=== PATIENT | female | born 1980 | race Caucasian/White ===

== ENCOUNTER 2017-04-18 09:04 | Emergency (ER) | payer MEDICARE, MEDICAID ==
[2017-04-18 09:30] VITALS: BP 208/106
--- NOTE | 2017-04-18 10:09 | EDM.PDOC ---
[id number] Complaint: DIARRHEA; NAUSEA Time Seen by Provider: 04/18/17 09:50 Source of Information: Reports: Patient History Limitations: Reports: No Limitations - History of Present Illness INITIAL COMMENTS - FREE TEXT/NARRATIVE: 36-year-old female who has had diarrhea off and on for the last several days and nausea, intermittent epigastric discomfort is in today because she feels "dehydrated". She is actually hypertensive, moderately tachycardic but in reviewing her previous vitals they are fairly consistent with long-term readings. She has no fever, she has had no emesis and no blood in her diarrhea. She was recently on an antibiotic for an "ear infection". Severity: Mild Associated Symptoms: Reports: Nausea/Vomiting. Denies: Chest Pain, Fever/Chills , Shortness of Breath, Weakness Epigastric Pain Score (Numeric/FACES): 10 - Related Data Allergies Allergy/AdvReac Type Severity Reaction Status Date / Time amoxicillin Allergy Hives Verified 04/18/17 11:09 Penicillins Allergy Hives Verified 04/18/17 11:09 Home Meds: Home Meds Norethindrone-Ethinyl Estrad [Dasetta 1-35-28 Tablet] 1 tab PO DAILY 02/04/15 [ History] ClonazePAM [KlonoPIN] 1 tab PO BEDTIME 11/06/16 [History] Gabapentin [Neurontin] 300 mg PO BEDTIME 11/06/16 [History] Lurasidone HCl [Latuda] 40 mg PO DAILY 11/06/16 [History] Omeprazole 20 mg PO DAILY 11/06/16 [History] Polyethylene Glycol 3350 1,000 gm MC BID 11/06/16 [History] QUEtiapine [SEROquel] 100 mg PO BEDTIME 11/06/16 [History] Sertraline [Zoloft] 100 mg PO BEDTIME 11/06/16 [History] Zolpidem [Ambien] 10 mg PO BEDTIME 11/06/16 [History] buPROPion [Wellbutrin XL] 150 mg PO DAILY 11/06/16 [History] traZODone 100 mg PO BEDTIME 11/06/16 [History] Past Medical History HEENT History: Reports: Impaired Vision Gastrointestinal History: Reports: GERD Psychiatric History: Reports: Depression Endocrine/Metabolic History: Reports: Obesity/BMI 30+ - Infectious Disease History Infectious Disease History: Reports: Chicken Pox - Past Surgical History GI Surgical History: Reports: Cholecystectomy Social & Family History - Tobacco Use Smoking Status *Q: Unknown Ever Smoked Years of Tobacco use: 7 Second Hand Smoke Exposure: No - Caffeine Use Caffeine Use: Reports: Soda, Tea - Alcohol Use Days Per Week of Alcohol Use: 0 - Recreational Drug Use Recreational Drug Use: No ED ROS GENERAL - Review of Systems Review Of Systems: See Below Constitutional: Reports: Malaise. Denies: Fever Respiratory: Denies: Shortness of Breath Cardiovascular: Denies: Chest Pain GI/Abdominal: Reports: Abdominal Pain, Diarrhea, Nausea. Denies: Vomiting : Reports: No Symptoms Skin: Reports: No Symptoms Neurological: Reports: No Symptoms ED EXAM, GI/ABD - Physical Exam Exam: See Below Exam Limited By: No Limitations General Appearance: Alert, No Apparent Distress Throat/Mouth: Normal Inspection Respiratory/Chest: No Respiratory Distress, Lungs Clear Cardiovascular: Regular Rate, Rhythm, Tachycardia GI/Abdominal: Soft, Tenderness (Reaction of some tenderness to palpation across the entire abdomen, no focal rebound or guarding) Course - Vital Signs Last Recorded V/S: Last Vital Signs Temp 97.5 F 04/18/17 09:50 Pulse 127 H 04/18/17 09:50 Resp 18 04/18/17 09:50 BP 208/106 H 04/18/17 09:50 Pulse Ox 95 04/18/17 09:50 - Orders/Labs/Meds Labs: Laboratory Tests 04/18/17 04/18/17 Range/Units 09:58 09:58 WBC 8.0 (4.5-11.0) K/uL RBC 5.59 H (3.30-5.50) M/uL Hgb 15.9 H D (12.0-15.0) g/dL Hct 48.4 H (36.0-48.0) % MCV 87 (80-98) fL MCH 28 (27-31) pg MCHC 33 (32-36) % Plt Count 366 (150-400) K/uL Neut % (Auto) 65 (36-66) % Lymph % (Auto) 23 L (24-44) % [place] % (Auto) 12 H (2-6) % Eos % (Auto) 0 L (2-4) % Baso % (Auto) 1 (0-1) % Sodium 140 (140-148) mmol/L Potassium 3.6 (3.6-5.2) mmol/L Chloride 103 (100-108) mmol/L Carbon Dioxide 29 (21-32) mmol/L Anion Gap 8.0 (5.0-14.0) mmol/L BUN 9 (7-18) mg/dL Creatinine 1.0 (0.6-1.0) mg/dL Est Cr Clr Drug Dosing 68.45 mL/min Estimated GFR (MDRD) > 60 (>60) Glucose 99 (74-106) mg/dL Calcium 9.6 (8.5-10.1) mg/dL - Re-Assessments/Exams Free Text/Narrative Re-Assessment/Exam: 04/18/17 10:09 Patient likely has just mild gastroenteritis but with the recent antibiotic a C. difficile will be checked. We'll also draw a CBC and BMP. 04/18/17 11:04 Patient drink water in the emergency room without a problem. We waited 2 hours for stool sample and she had no diarrhea, no nausea or vomiting. She'll be discharged with some doses of Zofran and can return if symptoms persist. Departure - Departure Time of Disposition: 11:19 Disposition: Home, Self-Care 01 Condition: Good Clinical Impression: Gastroenteritis - Discharge Information Instructions: Diarrhea, Adult, [id number] Referrals: Abdifatah Aguirre MD [Primary Care Provider] - Forms: ED Department Discharge Care Plan Goals: Increase diet and activity as tolerated. Consider rechecking in 3-4 days if not improving, or return anytime sooner if worsening. Use Zofran under your tongue every 6 hours for nausea if needed.
== END 2017-04-18 11:15 | disposition home or self-care (01) ==
LOC: JP.ED 09:04
DX: K52.9 Noninfective gastroenteritis and colitis, unspecified (principal); K21.9 Gastro-esophageal reflux disease without esophagitis; E66.9 Obesity, unspecified; Z90.49 Acquired absence of other specified parts of digestive tract; Z79.899 Other long term (current) drug therapy; Z88.0 Allergy status to penicillin; Z88.1 Allergy status to other antibiotic agents
CPT/HCPCS: 36415; 80048; 85025; 99282; 99284

== ENCOUNTER 2017-04-18 13:55 | Emergency (ER) | payer MEDICARE, MEDICAID ==
[2017-04-18 14:24] VITALS: BP 155/99
[2017-04-18] MEDS ORDERED: LORazepam 1 MG Tab PO ONE (15:05)
--- NOTE | 2017-04-18 15:38 | EDM.PDOC ---
ED HPI GENERAL MEDICAL PROBLEM - General Chief Complaint: Behavioral/Psych Stated Complaint: DEPRESSED Time Seen by Provider: 04/18/17 14:01 Source of Information: Reports: Patient History Limitations: Reports: No Limitations - History of Present Illness INITIAL COMMENTS - FREE TEXT/NARRATIVE: "I'm having a mental breakdown!", This is a 36 year old female present to ER by herself, She reports hasn't taken her psychiatric medications for the past 4 months because she just doesn't care anymore. She reports hearing voices to "kill herself" and is "seeing people". She does not feel safe in her home. 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 She lives in [place], [place]., has been alone for the past month, due to Boyfriend being in a [facility] [place] [place] for his mental breakdown. No children. denies drugs, ETOH or smoking. Has not has Inpatient Psych Treatment in the past, has never harmed herself. She lives alone in a apartment, does not work, spends her day watching TV. Significant Other: currently Inpatient Psych. Therapist; Dr. Altaf Lucas, [facility] Primary Care Provider: Dr. Aguirre Onset: Gradual Duration: Getting Worse (has been depressed for a long time, worse today.) Location: Reports: Generalized Improves with: Reports: None Worsens with: Reports: None Associated Symptoms: Reports: No Other Symptoms - Related Data Allergies Allergy/AdvReac Type Severity Reaction Status Date / Time amoxicillin Allergy Hives Verified 04/18/17 11:09 Penicillins Allergy Hives Verified 04/18/17 11:09 Home Meds: Home Meds Norethindrone-Ethinyl Estrad [Dasetta 1-35-28 Tablet] 1 tab PO DAILY 02/04/15 [ History] ClonazePAM [KlonoPIN] 1 tab PO BEDTIME 11/06/16 [History] Gabapentin [Neurontin] 300 mg PO BEDTIME 11/06/16 [History] Lurasidone HCl [Latuda] 40 mg PO DAILY 11/06/16 [History] Omeprazole 20 mg PO DAILY 11/06/16 [History] Polyethylene Glycol 3350 1,000 gm MC BID 11/06/16 [History] QUEtiapine [SEROquel] 100 mg PO BEDTIME 11/06/16 [History] Sertraline [Zoloft] 100 mg PO BEDTIME 11/06/16 [History] Zolpidem [Ambien] 10 mg PO BEDTIME 11/06/16 [History] buPROPion [Wellbutrin XL] 150 mg PO DAILY 11/06/16 [History] traZODone 100 mg PO BEDTIME 11/06/16 [History] Past Medical History HEENT History: Reports: Impaired Vision Gastrointestinal History: Reports: GERD Psychiatric History: Reports: Depression Endocrine/Metabolic History: Reports: Obesity/BMI 30+ - Infectious Disease History Infectious Disease History: Reports: Chicken Pox - Past Surgical History GI Surgical History: Reports: Cholecystectomy Social & Family History - Tobacco Use Smoking Status *Q: Never Smoker Years of Tobacco use: 7 Second Hand Smoke Exposure: No - Caffeine Use Caffeine Use: Reports: Soda, Tea - Alcohol Use Days Per Week of Alcohol Use: 0 - Recreational Drug Use Recreational Drug Use: No - Living Situation & Occupation Living situation: Reports: with Significant Other Occupation: Disabled (lives with Boyfriend in [place], [place].) ED ROS GENERAL - Review of Systems Review Of Systems: See Below Constitutional: Reports: Other (depressed, lonely) HEENT: Reports: No Symptoms Respiratory: Reports: No Symptoms Cardiovascular: Reports: No Symptoms Endocrine: Reports: No Symptoms GI/Abdominal: Reports: Abdominal Pain : Reports: No Symptoms Musculoskeletal: Reports: No Symptoms Skin: Reports: No Symptoms Neurological: Reports: No Symptoms Psychiatric: Reports: Agitation, Anxiety, Depression, Hallucinations Hematologic/Lymphatic: Reports: No Symptoms Immunologic: Reports: No Symptoms ED EXAM, BEHAVIORAL HEALTH - Physical Exam Exam: See Below Exam Limited By: No Limitations General Appearance: Alert, Mild Distress (hollaring out. ), Obese, Other ( smells and looks like she has not showered in a long time. strong body odor, greasy hair.) Eye Exam: Bilateral Eye: Normal Inspection Ears: Normal External Exam, Normal Canal, Hearing Grossly Normal, Normal TMs Nose: Normal Inspection, Normal Mucosa, No Blood Throat/Mouth: Normal Inspection, Normal Lips, Normal Teeth, Normal Gums Head: Atraumatic, Normocephalic Neck: Normal Inspection, Supple, Non-Tender Respiratory/Chest: No Respiratory Distress, Lungs Clear, Normal Breath Sounds, No Accessory Muscle Use, Chest Non-Tender Cardiovascular: Normal Peripheral Pulses, Regular Rate, Rhythm, No Edema, No Murmur GI/Abdominal: Normal Bowel Sounds, Soft, Non-Tender (Female) Exam: Deferred Rectal (Female) Exam: Deferred Back Exam: Normal Inspection, Full Range of Motion, NT Extremities: Normal Inspection, Normal Range of Motion, Non-Tender, Normal Capillary Refill, No Pedal Edema Neurological: Alert, Normal Gait, Normal Reflexes, No Motor/Sensory Deficits, Oriented x 3 Psychiatric: Alert, Depressed Mood, Restless, Agitated Skin Exam: Warm, Dry, Intact, Normal color, No rash COURSE, BEHAVIORAL HEALTH COMP - Course Vital Signs: Last Vital Signs Temp 36.8 C 04/18/17 14:20 Pulse 130 H 04/18/17 14:20 Resp 14 04/18/17 14:20 BP 155/99 H 04/18/17 14:20 Pulse Ox 99 04/18/17 14:20 Orders, Labs, Meds: Active Orders 24 hr Category Date Time Status Regular Diet [DIET] Diet 04/18/17 Dinner Active Laboratory Tests 04/18/17 04/18/17 04/18/17 Range/Units 10:00 10:00 14:57 Urine HCG, Qual Negative Urine Opiates Screen (NEGATIVE) Ur Oxycodone Screen (NEGATIVE) Urine Methadone Screen (NEGATIVE) Ur Propoxyphene Screen (NEGATIVE) Acetaminophen 0.0 L (10.0-30.0) ug/mL Ur Barbiturates Screen (NEGATIVE) Ur Tricyclics Screen (NEGATIVE) Ur Phencyclidine Scrn (NEGATIVE) Ur Amphetamine Screen (NEGATIVE) U Methamphetamines Scrn (NEGATIVE) Urine MDMA Screen (NEGATIVE) U Benzodiazepines Scrn (NEGATIVE) U Cocaine Metab Screen (NEGATIVE) U Marijuana (THC) Screen (NEGATIVE) Ethyl Alcohol < 3 mg/dL 04/18/17 Range/Units 14:57 Urine HCG, Qual Urine Opiates Screen Negative (NEGATIVE) Ur Oxycodone Screen Negative (NEGATIVE) Urine Methadone Screen Negative (NEGATIVE) Ur Propoxyphene Screen Negative (NEGATIVE) Acetaminophen (10.0-30.0) ug/mL Ur Barbiturates Screen Negative (NEGATIVE) Ur Tricyclics Screen Negative (NEGATIVE) Ur Phencyclidine Scrn Negative (NEGATIVE) Ur Amphetamine Screen Negative (NEGATIVE) U Methamphetamines Scrn Negative (NEGATIVE) Urine MDMA Screen Negative (NEGATIVE) U Benzodiazepines Scrn Negative (NEGATIVE) U Cocaine Metab Screen Negative (NEGATIVE) U Marijuana (THC) Screen Negative (NEGATIVE) Ethyl Alcohol mg/dL Medications Discontinued Medications Generic Name Dose Route Start Last Admin Trade Name Guido PRN Reason Stop Dose Admin Acetaminophen 1,000 mg 04/18/17 17:35 04/18/17 17:56 Tylenol Extra Strength PO 04/18/17 17:36 1,000 mg ONETIME ONE Administration Lorazepam 1 mg 04/18/17 15:05 04/18/17 15:17 Ativan PO 04/18/17 15:06 1 mg ONETIME ONE Administration Re-Assessment/Re-Exam: order; call to Crisis Team, they will come to ER to evaluate Ms. Elliott. Crisis Team; recommendation to discharge to home with Mother. will plan to follow up with Primary Care Provider Departure - Departure Time of Disposition: 18:59 Disposition: Home, Self-Care 01 Condition: Good Clinical Impression: Depression - Discharge Information Forms: ED Department Discharge Care Plan Goals: depression, anxiety -start Xanax 0.5mg every 8 hours as needed for anxiety/stresss -start Ambien 5mg at bedtime as needed for sleep. Call Primary Care Provider for follow up on Friday Call Therapist for a appointment next week for follow up. Return to Clinic or ER if has any question or concerns. - Problem List & Annotations (1) Depression SNOMED Code(s): 21031540 Code(s): F32.9 - MAJOR DEPRESSIVE DISORDER, SINGLE EPISODE, UNSPECIFIED Status: Acute Priority: High Current Visit: Yes Qualifiers: Depression Type: reactive depression Qualified Code(s): F32.9 - Major depressive disorder, single episode, unspecified - Problem List Review Problem List Initiated/Reviewed/Updated: Yes - My Orders Last 24 Hours: My Active Orders 04/18/17 Dinner Regular Diet [DIET] - Assessment/Plan Last 24 Hours: My Active Orders 04/18/17 Dinner Regular Diet [DIET] Plan: depression, anxiety -start Xanax 0.5mg every 8 hours as needed for anxiety/stresss -start Ambien 5mg at bedtime as needed for sleep. Call Primary Care Provider for follow up on Friday Call Therapist for a appointment next week for follow up. Return to Clinic or ER if has any question or concerns.
[2017-04-18] MEDS ORDERED: Acetaminophen 500 MG Tab PO ONE (17:35)
== END 2017-04-18 19:16 | disposition home or self-care (01) ==
LOC: JP.ED 13:55
DX: F32.9 Major depressive disorder, single episode, unspecified (principal); K21.9 Gastro-esophageal reflux disease without esophagitis; E66.9 Obesity, unspecified; Z90.49 Acquired absence of other specified parts of digestive tract; Z79.899 Other long term (current) drug therapy; K52.9 Noninfective gastroenteritis and colitis, unspecified; Z88.0 Allergy status to penicillin; Z88.1 Allergy status to other antibiotic agents
CPT/HCPCS: 36415; 80048; 80305; 81025; 85025; 99282; 99283; 99284; A9270; G0480

== ENCOUNTER 2017-04-23 12:14 | Emergency (ER) | payer MEDICARE, MEDICAID ==
[2017-04-23] MEDS ORDERED: Levofloxacin/Dextrose 5%-Water 500 MG in Premix Bag 1 BAG IV ONE (14:23)
[2017-04-23] MEDS ORDERED: Sodium Chloride 0.9% 1,000 ML IV SCH ×2 (14:30→15:15)
--- NOTE | 2017-04-23 14:33 | EDM.PDOC ---
[id number] 4d DIZZINESS,WEAKNESS Time Seen by Provider: 04/23/17 14:25 Source of Information: Reports: Patient History Limitations: Reports: No Limitations - History of Present Illness INITIAL COMMENTS - FREE TEXT/NARRATIVE: pt is doing better mentally. She woke up this am very fatiqued and felt like her heart was pounding. she was feeling lite headed and she thought her speech was a littslurred. At this time her speech seemes good. Onset: Today Duration: Hour(s): Location: Reports: Other (lite headed. She has a low grade headache but not severe. ) Associated Symptoms: Reports: Malaise, Other (pt was liteheaded. ) - Related Data Allergies Allergy/AdvReac Type Severity Reaction Status Date / Time amoxicillin Allergy Hives Verified 04/24/17 10:37 Penicillins Allergy Hives Verified 04/24/17 10:37 Home Meds: Home Meds Norethindrone-Ethinyl Estrad [Dasetta 1-35-28 Tablet] 1 tab PO DAILY 02/04/15 [ History] ClonazePAM [KlonoPIN] 1 tab PO TID 11/06/16 [History] Gabapentin [Neurontin] 300 mg PO BEDTIME 11/06/16 [History] Lurasidone HCl [Latuda] 40 mg PO DAILY 11/06/16 [History] Omeprazole 20 mg PO DAILY 11/06/16 [History] Polyethylene Glycol 3350 1,000 gm MC BID 11/06/16 [History] QUEtiapine [SEROquel] 100 mg PO BEDTIME 11/06/16 [History] Sertraline [Zoloft] 100 mg PO BEDTIME 11/06/16 [History] Zolpidem [Ambien] 10 mg PO BEDTIME 11/06/16 [History] buPROPion [Wellbutrin XL] 150 mg PO DAILY 11/06/16 [History] traZODone 100 mg PO BEDTIME 11/06/16 [History] ALPRAZolam [Xanax] 0.25 mg PO Q8H PRN 04/23/17 [History] Ciprofloxacin HCl [Cipro] 500 mg PO BID 04/24/17 [History] Metoprolol Tartrate [Lopressor] 25 mg PO DAILY 04/24/17 [History] Past Medical History HEENT History: Reports: Impaired Vision Gastrointestinal History: Reports: GERD Psychiatric History: Reports: Depression Endocrine/Metabolic History: Reports: Obesity/BMI 30+ - Infectious Disease History Infectious Disease History: Reports: Chicken Pox - Past Surgical History GI Surgical History: Reports: Cholecystectomy Social & Family History - Tobacco Use Smoking Status *Q: Never Smoker Years of Tobacco use: 7 Second Hand Smoke Exposure: No - Caffeine Use Caffeine Use: Reports: None - Alcohol Use Days Per Week of Alcohol Use: 0 - Recreational Drug Use Recreational Drug Use: No - Living Situation & Occupation Living situation: Reports: with Significant Other Occupation: Disabled (lives with Boyfriend in [place], [place].) ED ROS GENERAL - Review of Systems Review Of Systems: See Below Constitutional: Reports: Malaise HEENT: Reports: No Symptoms Respiratory: Reports: No Symptoms Cardiovascular: Reports: No Symptoms Endocrine: Reports: Fatigue GI/Abdominal: Reports: No Symptoms : Reports: Dysuria, Frequency Musculoskeletal: Reports: No Symptoms Skin: Reports: No Symptoms ED EXAM, GENERAL - Physical Exam Exam: See Below Free Text/Narrative:: pt arrived stating that mentally she is doing better. She got up this am and she was liteheaded, she had dysuria and feeling fatiqued. Exam Limited By: No Limitations General Appearance: Alert, Mild Distress Ears: Normal TMs Nose: Normal Inspection Throat/Mouth: Normal Inspection Head: Atraumatic Neck: Normal Inspection Respiratory/Chest: No Respiratory Distress Cardiovascular: Regular Rate, Rhythm, Tachycardia GI/Abdominal: Soft, Other (mild tenderness in the epigastric area. ) (Female) Exam: Deferred Rectal (Female) Exam: Deferred Back Exam: Normal Inspection Extremities: Normal Inspection Neurological: Alert, Oriented, Normal Cognition Psychiatric: Anxious Course - Vital Signs Last Recorded V/S: Last Vital Signs Temp 36.3 C 04/23/17 12:41 Pulse 107 H 04/23/17 17:14 Resp 16 04/23/17 15:20 BP 169/89 H 04/23/17 17:14 Pulse Ox 98 04/23/17 15:20 - Orders/Labs/Meds Labs: Laboratory Tests 04/23/17 04/23/17 04/23/17 Range/Units 13:32 13:37 13:40 WBC 7.9 (4.5-11.0) K/uL RBC 4.67 (3.30-5.50) M/uL Hgb 13.5 D (12.0-15.0) g/dL Hct 42.3 (36.0-48.0) % MCV 91 (80-98) fL MCH 29 (27-31) pg MCHC 32 (32-36) % Plt Count 279 (150-400) K/uL Neut % (Auto) 61 (36-66) % Lymph % (Auto) 27 (24-44) % [place] % (Auto) 9 H (2-6) % Eos % (Auto) 2 (2-4) % Baso % (Auto) 1 (0-1) % Sodium (140-148) mmol/L Potassium (3.6-5.2) mmol/L Chloride (100-108) mmol/L Carbon Dioxide (21-32) mmol/L Anion Gap (5.0-14.0) mmol/L BUN (7-18) mg/dL Creatinine (0.6-1.0) mg/dL Est Cr Clr Drug Dosing mL/min Estimated GFR (MDRD) (>60) Glucose (74-106) mg/dL Calcium (8.5-10.1) mg/dL Total Bilirubin (0.2-1.0) mg/dL AST (15-37) U/L ALT (12-78) U/L Alkaline Phosphatase (46-116) U/L Total Protein (6.4-8.2) g/dL Albumin (3.4-5.0) g/dL Globulin (2.3-3.5) g/dL Albumin/Globulin Ratio (1.2-2.2) TSH, Ultra Sensitive 0.872 (0.358-3.740) uIU/mL Urine Color Yellow Urine Appearance Cloudy Urine pH 6.0 (4.5-8.0) Ur Specific [place] 1.015 (1.008-1.030) Urine Protein Negative (NEGATIVE) mg/dL Urine Glucose (UA) Normal (NEGATIVE) mg/dL Urine Ketones 15 H (NEGATIVE) mg/dL Urine Occult Blood Moderate (NEGATIVE) Urine Nitrite Negative (NEGATIVE) Urine Bilirubin Negative (NEGATIVE) Urine Urobilinogen Normal (NORMAL) mg/dL Ur Leukocyte Esterase Large (NEGATIVE) Urine RBC 5-10 H (0-5) Urine WBC 30-40 H (0-5) Ur Epithelial Cells Moderate Amorphous Sediment Few Urine Bacteria Many Urine Mucus Not seen 04/23/17 Range/Units 13:40 WBC (4.5-11.0) K/uL RBC (3.30-5.50) M/uL Hgb (12.0-15.0) g/dL Hct (36.0-48.0) % MCV (80-98) fL MCH (27-31) pg MCHC (32-36) % Plt Count (150-400) K/uL Neut % (Auto) (36-66) % Lymph % (Auto) (24-44) % [place] % (Auto) (2-6) % Eos % (Auto) (2-4) % Baso % (Auto) (0-1) % Sodium 145 (140-148) mmol/L Potassium 3.5 L (3.6-5.2) mmol/L Chloride 110 H (100-108) mmol/L Carbon Dioxide 30 (21-32) mmol/L Anion Gap 8.5 (5.0-14.0) mmol/L BUN 12 (7-18) mg/dL Creatinine 1.0 (0.6-1.0) mg/dL Est Cr Clr Drug Dosing 68.45 mL/min Estimated GFR (MDRD) > 60 (>60) Glucose 110 H (74-106) mg/dL Calcium 8.7 (8.5-10.1) mg/dL Total Bilirubin 0.4 D (0.2-1.0) mg/dL AST 36 D (15-37) U/L ALT 56 D (12-78) U/L Alkaline Phosphatase 71 (46-116) U/L Total Protein 6.5 (6.4-8.2) g/dL Albumin 3.0 L (3.4-5.0) g/dL Globulin 3.5 (2.3-3.5) g/dL Albumin/Globulin Ratio 0.9 L (1.2-2.2) TSH, Ultra Sensitive (0.358-3.740) uIU/mL Urine Color Urine Appearance Urine pH (4.5-8.0) Ur Specific [place] (1.008-1.030) Urine Protein (NEGATIVE) mg/dL Urine Glucose (UA) (NEGATIVE) mg/dL Urine Ketones (NEGATIVE) mg/dL Urine Occult Blood (NEGATIVE) Urine Nitrite (NEGATIVE) Urine Bilirubin (NEGATIVE) Urine Urobilinogen (NORMAL) mg/dL Ur Leukocyte Esterase (NEGATIVE) Urine RBC (0-5) Urine WBC (0-5) Ur Epithelial Cells Amorphous Sediment Urine Bacteria Urine Mucus Meds: Medications Discontinued Medications Generic Name Dose Route Start Last Admin Trade Name Freq PRN Reason Stop Dose Admin Alprazolam 0.25 mg 04/23/17 16:22 04/23/17 17:16 Xanax PO 04/23/17 16:23 0.25 mg ONETIME ONE Administration Sodium Chloride 1,000 mls @ 999 mls/hr 04/23/17 14:30 04/23/17 14:48 Normal Saline IV 999 mls/hr ASDIRECTED BERNARDO Administration Levofloxacin/Dextrose 500 mg/ 100 mls @ 100 mls/hr 04/23/17 14:23 04/23/17 14 :50 Premix IV 04/23/17 15:22 100 mls/hr ONETIME ONE Administration Sodium Chloride 1,000 mls @ 999 mls/hr 04/23/17 15:15 Normal Saline IV ASDIRECTED BERNARDO Metoprolol Tartrate 25 mg 04/23/17 16:25 04/23/17 17:14 Lopressor PO 04/23/17 16:26 25 mg ONETIME ONE Administration - Re-Assessments/Exams Free Text/Narrative Re-Assessment/Exam: 04/23/17 16:25 pt continued to have an elevated bp and she was given lopressor 25 mg and xanax .25. She will finish her fluids and will discharge on cipro and lopressor in addition to her regular meds. Departure - Departure Time of Disposition: 17:15 Disposition: Home, Self-Care 01 Condition: Fair Clinical Impression: UTI (urinary tract infection), Elevated BP without diagnosis of hypertension - Discharge Information Instructions: Urinary Tract Infection, Adult, Hypertension, [id number] Referrals: Abdifatah Aguirre MD [Primary Care Provider] - Forms: ED Department Discharge Care Plan Goals: appt with Dr Aguirre in 4-5 days to recheck bp, cipro 500mg bid for 1 week, lopressor 25 1 tab daily for elevated bp.
[2017-04-23] MEDS ORDERED: ALPRAZolam 0.25 MG Tab PO ONE (16:22)
[2017-04-23] MEDS ORDERED: Metoprolol Tartrate 25 MG Tab PO ONE (16:25)
[2017-04-23 17:17] VITALS: BP 169/89
== END 2017-04-23 17:20 | disposition home or self-care (01) ==
LOC: JP.ED 12:14
DX: N39.0 Urinary tract infection, site not specified (principal); R03.0 Elevated blood-pressure reading, without diagnosis of hypertension; K21.9 Gastro-esophageal reflux disease without esophagitis; F32.9 Major depressive disorder, single episode, unspecified; E66.9 Obesity, unspecified; Z90.49 Acquired absence of other specified parts of digestive tract; Z79.899 Other long term (current) drug therapy; Z88.0 Allergy status to penicillin; Z88.1 Allergy status to other antibiotic agents
CPT/HCPCS: 36415; 80053; 81001; 84443; 85025; 87086; 93005; 96361; 96365; 99284; A9270; J1956; J7040; 93010

== ENCOUNTER 2017-04-24 10:16 | Emergency (ER) | payer MEDICARE, MEDICAID ==
[2017-04-24 10:37] VITALS: BP 152/82
--- NOTE | 2017-04-24 11:15 | EDM.PDOC ---
ED HPI GENERAL MEDICAL PROBLEM - General Chief Complaint: General Stated Complaint: SLURRED SPEECH, STUMBLING Time Seen by Provider: 04/24/17 10:50 Source of Information: Reports: Patient, Family, Old Records, RN Notes Reviewed History Limitations: Reports: No Limitations - History of Present Illness INITIAL COMMENTS - FREE TEXT/NARRATIVE: 36-year-old female presents emergency department day complaint of slurred speech , this is her fourth visit emergency department in a week for riding complaints complaint yesterday was chest pain I did review EKG and old records no acute abnormality was noted. The complaint today states she awoke this morning slurred speech difficulty walking feels weak had one episode of weakness where she could not walk and had to gently go to the ground no injury at that time. On review of systems today she is positive for shortness of breath chest pain weakness on the right side slurred speech teeth itching - Related Data Allergies Allergy/AdvReac Type Severity Reaction Status Date / Time amoxicillin Allergy Hives Verified 04/24/17 10:37 Penicillins Allergy Hives Verified 04/24/17 10:37 Home Meds: Home Meds Norethindrone-Ethinyl Estrad [Dasetta 1-35-28 Tablet] 1 tab PO DAILY 02/04/15 [ History] ClonazePAM [KlonoPIN] 1 tab PO TID 11/06/16 [History] Gabapentin [Neurontin] 300 mg PO BEDTIME 11/06/16 [History] Lurasidone HCl [Latuda] 40 mg PO DAILY 11/06/16 [History] Omeprazole 20 mg PO DAILY 11/06/16 [History] Polyethylene Glycol 3350 1,000 gm MC BID 11/06/16 [History] QUEtiapine [SEROquel] 100 mg PO BEDTIME 11/06/16 [History] Sertraline [Zoloft] 100 mg PO BEDTIME 11/06/16 [History] Zolpidem [Ambien] 10 mg PO BEDTIME 11/06/16 [History] buPROPion [Wellbutrin XL] 150 mg PO DAILY 11/06/16 [History] traZODone 100 mg PO BEDTIME 11/06/16 [History] ALPRAZolam [Xanax] 0.25 mg PO Q8H PRN 04/23/17 [History] Ciprofloxacin HCl [Cipro] 500 mg PO BID 04/24/17 [History] Metoprolol Tartrate [Lopressor] 25 mg PO DAILY 04/24/17 [History] Past Medical History HEENT History: Reports: Impaired Vision Cardiovascular History: Reports: Hypertension Gastrointestinal History: Reports: GERD Psychiatric History: Reports: Depression, Other (See Below) (Schizoaffective disorder) Endocrine/Metabolic History: Reports: Obesity/BMI 30+ - Infectious Disease History Infectious Disease History: Reports: Chicken Pox - Past Surgical History GI Surgical History: Reports: Cholecystectomy Social & Family History - Tobacco Use Smoking Status *Q: Never Smoker Years of Tobacco use: 7 Second Hand Smoke Exposure: No - Caffeine Use Caffeine Use: Reports: Tea - Alcohol Use Days Per Week of Alcohol Use: 0 - Recreational Drug Use Recreational Drug Use: No - Living Situation & Occupation Living situation: Reports: with Significant Other Occupation: Disabled (lives with Boyfriend in [place], [place].) ED ROS GENERAL - Review of Systems Review Of Systems: Unable To Obtain (Positive for all review of systems difficult to obtain) ED EXAM, GENERAL - Physical Exam Exam: See Below Free Text/Narrative:: General: Obese female, not in any distress, alert and oriented x3 HEENT: head is atraumatic normocephalic, eyes pupils equal round reactive to light, sclera clear no conjunctivitis appreciated. Ears tympanic membranes clear and villanueva landmarks and light reflex are present bilaterally canals are clear. Nose no septal deviation, nares are clear, no blood present. Mouth mucosa is moist and pink no erythema or exudate noted in soft palate, tongue is midline uvula is midline, dentition is intact. Neck: Supple no thyromegaly no tracheal deviation. Nodes: Cervical nodes subclavicular nodes nontender no palpable lymphadenopathy noted. Lungs: clear to auscultation bilaterally with symmetrical respirations, no adventitious noise appreciated. CV: Regular rate and rhythm S1 and S2 appreciated no murmurs rubs or gallops noted. Abdomen: Soft, obese, nontender, no palpable masses or organomegaly appreciated , no distention no guarding bowel sounds are present, . Neuro: Cranial nerves II through XII grossly intact, power is 5 out 5 in upper and lower extremities, can do finger to nose without difficulty no dysdiadochokinesis no difficulty with rapid alternating movements can do heel-to -pritchard without difficulty Romberg is negative, has adequate gait can do heel to toe, no cerebellar dysfunction no focal neurologic deficit Skin: Warm and dry, intact Course - Vital Signs Last Recorded V/S: Last Vital Signs Temp 97.6 F 04/24/17 10:35 Pulse 87 04/24/17 10:35 Resp 18 04/24/17 10:35 BP 152/82 H 04/24/17 10:35 Pulse Ox 92 L 04/24/17 10:35 - Orders/Labs/Meds Labs: Laboratory Tests 04/24/17 04/24/17 04/24/17 Range/Units 11:15 11:15 11:15 WBC 6.6 (4.5-11.0) K/uL RBC 4.83 (3.30-5.50) M/uL Hgb 13.6 (12.0-15.0) g/dL Hct 43.3 (36.0-48.0) % MCV 90 (80-98) fL MCH 28 (27-31) pg MCHC 31 L (32-36) % Plt Count 309 (150-400) K/uL Neut % (Auto) 50 (36-66) % Lymph % (Auto) 35 (24-44) % Towns % (Auto) 11 H (2-6) % Eos % (Auto) 3 (2-4) % Baso % (Auto) 2 H (0-1) % Sodium 137 L (140-148) mmol/L Potassium 4.1 (3.6-5.2) mmol/L Chloride 101 (100-108) mmol/L Carbon Dioxide 29 (21-32) mmol/L Anion Gap 11.1 (5.0-14.0) mmol/L BUN 10 (7-18) mg/dL Creatinine 0.9 (0.6-1.0) mg/dL Est Cr Clr Drug Dosing 76.06 mL/min Estimated GFR (MDRD) > 60 (>60) Glucose 88 (74-106) mg/dL Calcium 8.9 (8.5-10.1) mg/dL Total Bilirubin 0.6 (0.2-1.0) mg/dL AST 42 H (15-37) U/L ALT 59 (12-78) U/L Alkaline Phosphatase 69 (46-116) U/L CK-MB (CK-2) 0.2 (0-3.6) mg/mL Troponin I < 0.017 (0.000-0.056) ng/mL C-Reactive Protein 1.52 H (0.0-0.3) mg/dL Total Protein 6.8 (6.4-8.2) g/dL Albumin 3.2 L (3.4-5.0) g/dL Globulin 3.6 H (2.3-3.5) g/dL Albumin/Globulin Ratio 0.9 L (1.2-2.2) Departure - Departure Time of Disposition: 12:13 Disposition: Home, Self-Care 01 Condition: Fair Clinical Impression: Polypharmacy - Discharge Information Forms: ED Department Discharge Additional Instructions: Please stop the Xanax, please keep your follow-up appointment with your primary care provider, call or return to the emergency department with worsening of symptoms - Assessment/Plan Plan: Assessment Acuity = acute Site and laterality = slurred speech complicated patient with schizoaffective disorder and polypharmacy Etiology = probably related to combination of Klonopin and Xanax Manifestations = none Location of injury = home Lab values = CBC, CMP within normal limits CT scan of the head was negative for any acute process Plan I did review lab and CT scan results with her and her family they're going to discontinue the Xanax today she is a follow-up appointment with her primary care provider next week Patient was in agreement with the plan all questions were answered, they were instructed to return to the emergency department or call for worsening symptoms. This note was dictated using [employer] voice recognition software please call with any questions.
--- NOTE | 2017-04-24 11:40 | CT ---
Head wo Cont INDICATION: Altered mental status and slurred speech. Dose: Total DLP 766. Comparison: 12/30/2016. FINDINGS: No acute intracranial hemorrhage, mass, or edema. Visualized portions of the paranasal sin uses and mastoid air cells are clear. Soft tissues are negative. IMPRESSION: Negative head CT.
== END 2017-04-24 12:30 | disposition home or self-care (01) ==
LOC: JP.ED 10:16
DX: R47.81 Slurred speech (principal); R53.1 Weakness; T88.7XXA Unspecified adverse effect of drug or medicament, initial encounter; I10 Essential (primary) hypertension; K21.9 Gastro-esophageal reflux disease without esophagitis; E66.9 Obesity, unspecified; F32.9 Major depressive disorder, single episode, unspecified; Z90.49 Acquired absence of other specified parts of digestive tract; Z79.899 Other long term (current) drug therapy; Z88.0 Allergy status to penicillin; Z88.1 Allergy status to other antibiotic agents
CPT/HCPCS: 36415; 70450; 70450-26; 80053; 82553; 84484; 85025; 86140; 99284; 99285-25

== ENCOUNTER 2017-05-11 18:33 | Emergency (ER) | payer MEDICARE, MEDICAID ==
[2017-05-11 19:12] VITALS: BP 195/67
[2017-05-11] MEDS ORDERED: ALPRAZolam 0.25 MG Tab PO ONE (19:21)
[2017-05-11] MEDS ORDERED: Albuterol/Ipratropium 3.0-0.5 MG/3 ML Neb Soln NEB ONE (19:21)
--- NOTE | 2017-05-11 19:30 | EDM.PDOC ---
ED HPI GENERAL MEDICAL PROBLEM - General Chief Complaint: Respiratory Problem Stated Complaint: SHORTNESS OF BREATH Time Seen by Provider: 05/11/17 19:11 Source of Information: Reports: Patient History Limitations: Reports: No Limitations - History of Present Illness INITIAL COMMENTS - FREE TEXT/NARRATIVE: 36 yo female presents with SOB. She has been feeling "achy" went to the fair today and when she was at home eating summer started feeling like it was hard for her to catch her breath. denies headache, fever, chills, N/V/D. SHe is living with her parents. has restarted all medication and feels that it is going well. Anterior Chest Pain Score (Numeric/FACES): 9 - Related Data Allergies Allergy/AdvReac Type Severity Reaction Status Date / Time amoxicillin Allergy Hives Verified 05/11/17 18:46 Penicillins Allergy Hives Verified 05/11/17 18:46 Home Meds: Home Meds Norethindrone-Ethinyl Estrad [Dasetta 1-35-28 Tablet] 1 tab PO DAILY 02/04/15 [ History] ClonazePAM [KlonoPIN] 1 tab PO TID 11/06/16 [History] Gabapentin [Neurontin] 300 mg PO BEDTIME 11/06/16 [History] Lurasidone HCl [Latuda] 40 mg PO DAILY 11/06/16 [History] Omeprazole 20 mg PO DAILY 11/06/16 [History] Polyethylene Glycol 3350 1,000 gm MC BID 11/06/16 [History] QUEtiapine [SEROquel] 100 mg PO BEDTIME 11/06/16 [History] Sertraline [Zoloft] 100 mg PO BEDTIME 11/06/16 [History] Zolpidem [Ambien] 10 mg PO BEDTIME 11/06/16 [History] buPROPion [Wellbutrin XL] 150 mg PO DAILY 11/06/16 [History] traZODone 100 mg PO BEDTIME 11/06/16 [History] ALPRAZolam [Xanax] 0.25 mg PO Q8H PRN 04/23/17 [History] Metoprolol Tartrate [Lopressor] 25 mg PO DAILY 04/24/17 [History] Past Medical History HEENT History: Reports: Impaired Vision Cardiovascular History: Reports: Hypertension Gastrointestinal History: Reports: GERD Psychiatric History: Reports: Depression, Other (See Below) Endocrine/Metabolic History: Reports: Obesity/BMI 30+ - Infectious Disease History Infectious Disease History: Reports: Chicken Pox - Past Surgical History GI Surgical History: Reports: Cholecystectomy Social & Family History - Tobacco Use Smoking Status *Q: Never Smoker Years of Tobacco use: 7 Second Hand Smoke Exposure: No - Caffeine Use Caffeine Use: Reports: Tea - Alcohol Use Days Per Week of Alcohol Use: 0 - Recreational Drug Use Recreational Drug Use: No - Living Situation & Occupation Living situation: Reports: with Significant Other Occupation: Disabled (lives with Boyfriend in [place], [place].) ED ROS GENERAL - Review of Systems Review Of Systems: See Below Constitutional: Reports: Fatigue. Denies: Fever, Chills HEENT: Reports: Rhinitis Respiratory: Reports: Shortness of Breath, Wheezing, Cough Cardiovascular: Denies: Chest Pain, Lightheadedness GI/Abdominal: Denies: Abdominal Pain, Diarrhea Skin: Denies: Rash ED EXAM, GENERAL - Physical Exam Exam: See Below Exam Limited By: No Limitations General Appearance: Alert, WD/WN, No Apparent Distress Ears: Normal External Exam, Normal Canal, Normal TMs Nose: Clear Rhinorrhea Head: Atraumatic, Normocephalic Neck: Normal Inspection, Supple, Non-Tender, Full Range of Motion. No: Lymphadenopathy (R), Lymphadenopathy (L) Respiratory/Chest: Chest Non-Tender, Wheezing (scattered). No: Crackles, Rhonchi Cardiovascular: No Murmur, Tachycardia GI/Abdominal: Normal Bowel Sounds, Soft, Non-Tender Back Exam: Normal Inspection, Full Range of Motion Neurological: Alert, Oriented Psychiatric: Anxious Skin Exam: Warm, Dry, Intact Course - Vital Signs Last Recorded V/S: Last Vital Signs Temp 36.7 C 05/11/17 18:58 Pulse 101 H 05/11/17 18:58 Resp 32 H 05/11/17 18:58 BP 195/67 H 05/11/17 18:58 Pulse Ox 95 05/11/17 18:58 - Orders/Labs/Meds Orders: Active Orders 24 hr Category Date Time Status RT Aerosol Therapy [RC] ASDIRECTED Care 05/11/17 19:21 Active Chest 2V [CR] Stat Exams 05/11/17 19:52 Taken Labs: Laboratory Tests 05/11/17 05/11/17 Range/Units 10:00 10:00 WBC 9.9 (4.5-11.0) K/uL RBC 4.21 (3.30-5.50) M/uL Hgb 12.1 (12.0-15.0) g/dL Hct 37.9 (36.0-48.0) % MCV 90 (80-98) fL MCH 29 (27-31) pg MCHC 32 (32-36) % Plt Count 358 (150-400) K/uL Neut % (Auto) 63 (36-66) % Lymph % (Auto) 25 (24-44) % Coffee % (Auto) 9 H (2-6) % Eos % (Auto) 3 (2-4) % Baso % (Auto) 1 (0-1) % Sodium 139 L (140-148) mmol/L Potassium 4.5 (3.6-5.2) mmol/L Chloride 105 (100-108) mmol/L Carbon Dioxide 29 (21-32) mmol/L Anion Gap 9.5 (5.0-14.0) mmol/L BUN 11 (7-18) mg/dL Creatinine 1.2 H (0.6-1.0) mg/dL Est Cr Clr Drug Dosing 69.03 mL/min Estimated GFR (MDRD) 51 L (>60) Glucose 102 (74-106) mg/dL Calcium 8.9 (8.5-10.1) mg/dL Meds: Medications Discontinued Medications Generic Name Dose Route Start Last Admin Trade Name Freq PRN Reason Stop Dose Admin Albuterol/Ipratropium 3 ml 05/11/17 19:21 05/11/17 19:34 Duoneb 3.0-0.5 Mg/3 Ml NEB 05/11/17 19:22 3 ml ONETIME ONE Administration Alprazolam 0.5 mg 05/11/17 19:21 05/11/17 19:33 Xanax PO 05/11/17 19:22 0.5 mg ONETIME ONE Administration - Re-Assessments/Exams Free Text/Narrative Re-Assessment/Exam: 05/11/17 20:49 post neb wheezing resolved. pt drinking fluids while in ER. Breathing improved. ready to go home Departure - Departure Time of Disposition: 20:50 Disposition: Home, Self-Care 01 Condition: Good Clinical Impression: Dehydration, Wheezing - Discharge Information Instructions: Rehydration, Adult Referrals: Abdifatah Aguirre MD [Primary Care Provider] - Forms: ED Department Discharge Additional Instructions: increase fluids with goal of 1.5-2 L per day rest and stay cool tomorrow - My Orders Last 24 Hours: My Active Orders 05/11/17 19:21 RT Aerosol Therapy [RC] ASDIRECTED 05/11/17 19:52 Chest 2V [CR] Stat - Assessment/Plan Last 24 Hours: My Active Orders 05/11/17 19:21 RT Aerosol Therapy [RC] ASDIRECTED 05/11/17 19:52 Chest 2V [CR] Stat
--- NOTE | 2017-05-12 09:17 | CR ---
Chest 2V HISTORY: Shortness of breath. COMPARISON: 08/04/2015. FINDINGS: Cardiac size and pulmonary vessels normal. There are no infiltrates or effusions. No pneum othorax. The osseous structures appear normal. IMPRESSION: No acute pulmonary disease.
== END 2017-05-11 21:05 | disposition home or self-care (01) ==
LOC: JP.ED 18:33
DX: E86.0 Dehydration (principal); R06.2 Wheezing; I10 Essential (primary) hypertension; K21.9 Gastro-esophageal reflux disease without esophagitis; F32.9 Major depressive disorder, single episode, unspecified; E66.9 Obesity, unspecified; Z79.899 Other long term (current) drug therapy; Z90.49 Acquired absence of other specified parts of digestive tract; Z88.0 Allergy status to penicillin; Z88.1 Allergy status to other antibiotic agents
CPT/HCPCS: 36415; 71020; 80048; 85025; 99285; A9270; J7620; 99284

== ENCOUNTER 2017-06-04 13:35 | Emergency (ER) | payer MEDICARE, MEDICAID ==
[2017-06-04 13:55] VITALS: BP 161/88
--- NOTE | 2017-06-04 14:42 | EDM.PDOCBH ---
ED HPI GENERAL MEDICAL PROBLEM - General Chief Complaint: Behavioral/Psych Stated Complaint: DIZZINESS,LIGHTHEADED, MENTAL CONDITION Time Seen by Provider: 06/04/17 14:10 Source of Information: Reports: Patient, Old Records, Provider, RN Notes Reviewed History Limitations: Reports: No Limitations - History of Present Illness INITIAL COMMENTS - FREE TEXT/NARRATIVE: 36-year-old female presents emergency department today with complaint of increase in hallucinations, she states he seems little green men and she is hearing voices. She has gone through several medication changes with her psychiatric care as well as providers she is establish with a new mental health provider which she will see in June her medications are currently being filled with by her primary care provider. She denies any suicidal ideation or homicidal ideation no immediate threat to self or other at this time. - Related Data Allergies Allergy/AdvReac Type Severity Reaction Status Date / Time amoxicillin Allergy Hives Verified 06/04/17 13:56 Penicillins Allergy Hives Verified 06/04/17 13:56 Home Meds: Home Meds Norethindrone-Ethinyl Estrad [Dasetta 1-35-28 Tablet] 1 tab PO DAILY 02/04/15 [ History] ClonazePAM [KlonoPIN] 1 tab PO TID 11/06/16 [History] Gabapentin [Neurontin] 300 mg PO BEDTIME 11/06/16 [History] Lurasidone HCl [Latuda] 40 mg PO DAILY 11/06/16 [History] Omeprazole 20 mg PO DAILY 11/06/16 [History] Polyethylene Glycol 3350 1,000 gm MC DAILY 11/06/16 [History] QUEtiapine [SEROquel] 100 mg PO BEDTIME 11/06/16 [History] Sertraline [Zoloft] 100 mg PO BEDTIME 11/06/16 [History] Zolpidem [Ambien] 10 mg PO BEDTIME 11/06/16 [History] buPROPion [Wellbutrin XL] 150 mg PO DAILY 11/06/16 [History] traZODone 100 mg PO BEDTIME 11/06/16 [History] Metoprolol Tartrate [Lopressor] 25 mg PO DAILY 04/24/17 [History] OLANZapine [ZyPREXA] 5 mg PO DAILY 06/04/17 [History] Past Medical History HEENT History: Reports: Impaired Vision Cardiovascular History: Reports: Hypertension Gastrointestinal History: Reports: GERD Psychiatric History: Reports: Depression, Other (See Below) (Schizoaffective disorder) Other Psychiatric History: SEEING THINGS AND HEARING THINGS Endocrine/Metabolic History: Reports: Obesity/BMI 30+ - Infectious Disease History Infectious Disease History: Reports: Chicken Pox - Past Surgical History Head Surgeries/Procedures: Reports: None HEENT Surgical History: Reports: None Cardiovascular Surgical History: Reports: None GI Surgical History: Reports: Cholecystectomy Endocrine Surgical History: Reports: None Social & Family History - Family History Family Medical History: Noncontributory - Tobacco Use Smoking Status *Q: Former Smoker Years of Tobacco use: 10 Packs/Tins Daily: 1 Used Tobacco, but Quit: Yes Month Tobacco Last Used: MARCH Second Hand Smoke Exposure: Yes - Caffeine Use Caffeine Use: Reports: Soda, Tea - Alcohol Use Days Per Week of Alcohol Use: 0 - Recreational Drug Use Recreational Drug Use: No - Living Situation & Occupation Living situation: Reports: with Significant Other Occupation: Disabled (lives with Boyfriend in [place], [place].) ED ROS GENERAL - Review of Systems Review Of Systems: See Below Constitutional: Reports: No Symptoms Respiratory: Reports: No Symptoms Cardiovascular: Reports: No Symptoms GI/Abdominal: Reports: No Symptoms : Reports: No Symptoms Psychiatric: Reports: Hallucinations. Denies: Homicidal Ideation, Suicidal Ideation ED EXAM, BEHAVIORAL HEALTH - Physical Exam Exam: See Below Text/Narrative:: Orientated to person place and time, appropriately dressed, well groomed, memory to recent and remote events intact, good attention and concentration, speech is of adequate rate tone and volume, good fund of knowledge, language is appropriate, Mood and affect are euthymic, no pressured thoughts, denies suicidal ideation, denies homicidal ideation, admits to hallucinations both visual or auditory "little green men", good judgment, good insight Exam Limited By: No Limitations General Appearance: Alert, WD/WN, No Apparent Distress Respiratory/Chest: No Respiratory Distress COURSE, BEHAVIORAL HEALTH COMP - Course Vital Signs: Last Vital Signs Temp 98.2 F 06/04/17 13:50 Pulse 120 H 06/04/17 13:50 Resp 20 06/04/17 13:50 BP 161/88 H 06/04/17 13:50 Pulse Ox 96 06/04/17 13:50 Departure - Departure Time of Disposition: 14:42 Disposition: Home, Self-Care 01 Condition: Fair Clinical Impression: Hallucinations - Discharge Information Forms: ED Department Discharge Additional Instructions: Please increase her Zyprexa to 10 mg at night, start that dosing tonight, recommend follow-up with mental health or your primary care provider in the next 7-10 days for reevaluation, please call return to the emergency department with worsening of symptoms - Assessment/Plan Plan: Assessment Acuity = acute Site and laterality = visual and auditory hallucinations complicated patient with known history of schizoaffective disorder Etiology = exacerbation of schizoaffective disorder Manifestations = tachycardia probably related to anxiety Location of injury = Home Lab values = none Plan Called discussed the case with her mental health provider who is not evaluated the patient yet but hasn't appointment in June. Romulus her doses Zyprexa was low and since she was not in imminent threat we can try increasing the Zyprexa to 10 mg at night and then follow-up either with mental health or primary care in the next 5-7 days for reevaluation Patient was in agreement with the plan all questions were answered, they were instructed to return to the emergency department or call for worsening symptoms. This note was dictated using [employer] voice recognition software please call with any questions.
== END 2017-06-04 14:51 | disposition home or self-care (01) ==
LOC: JP.ED 13:35
DX: F25.9 Schizoaffective disorder, unspecified (principal); R00.0 Tachycardia, unspecified; I10 Essential (primary) hypertension; K21.9 Gastro-esophageal reflux disease without esophagitis; F32.9 Major depressive disorder, single episode, unspecified; E66.9 Obesity, unspecified; Z68.44 Body mass index [BMI] 60.0-69.9, adult; Z79.899 Other long term (current) drug therapy; Z90.49 Acquired absence of other specified parts of digestive tract; Z87.891 Personal history of nicotine dependence; Z88.0 Allergy status to penicillin; Z88.1 Allergy status to other antibiotic agents
CPT/HCPCS: 99283; 99284

== ENCOUNTER 2017-06-23 16:42 | Emergency (ER) | payer MEDICARE, MEDICAID ==
[2017-06-23 16:53] VITALS: BP 160/119
--- NOTE | 2017-06-23 17:22 | EDM.PDOCBH ---
ED HPI GENERAL MEDICAL PROBLEM - General Chief Complaint: Behavioral/Psych Stated Complaint: EVAL Time Seen by Provider: 06/23/17 17:05 Source of Information: Reports: Patient History Limitations: Reports: No Limitations - History of Present Illness INITIAL COMMENTS - FREE TEXT/NARRATIVE: 36-year-old female sent in from the clinic because despite being on antipsychotics she is seen "little green men" telling her to herself. This has happened many times in the past, she has never had any type of self harm or suicidal attempt. She mentioned it to her primary care provider today in the clinic, he didn't seem concerned so after she got home she called the clinic and asked them about it and they sent her to the emergency room. Onset: Unknown/Unsure Severity: Mild - Related Data Allergies Allergy/AdvReac Type Severity Reaction Status Date / Time amoxicillin Allergy Hives Verified 06/04/17 13:56 Penicillins Allergy Hives Verified 06/04/17 13:56 Home Meds: Home Meds Norethindrone-Ethinyl Estrad [Dasetta 1-35-28 Tablet] 1 tab PO DAILY 02/04/15 [ History] ClonazePAM [KlonoPIN] 1 tab PO TID 11/06/16 [History] Gabapentin [Neurontin] 300 mg PO BEDTIME 11/06/16 [History] Lurasidone HCl [Latuda] 40 mg PO DAILY 11/06/16 [History] Omeprazole 20 mg PO DAILY 11/06/16 [History] Polyethylene Glycol 3350 1,000 gm MC DAILY 11/06/16 [History] QUEtiapine [SEROquel] 100 mg PO BEDTIME 11/06/16 [History] Sertraline [Zoloft] 100 mg PO BEDTIME 11/06/16 [History] Zolpidem [Ambien] 10 mg PO BEDTIME 11/06/16 [History] buPROPion [Wellbutrin XL] 150 mg PO DAILY 11/06/16 [History] traZODone 100 mg PO BEDTIME 11/06/16 [History] Metoprolol Tartrate [Lopressor] 25 mg PO DAILY 04/24/17 [History] OLANZapine [ZyPREXA] 10 mg PO BEDTIME 06/04/17 [History] OLANZapine [ZyPREXA] 15 mg PO DAILY 06/23/17 [History] Past Medical History HEENT History: Reports: Impaired Vision Cardiovascular History: Reports: Hypertension Gastrointestinal History: Reports: GERD Psychiatric History: Reports: Depression, Other (See Below) Other Psychiatric History: SEEING THINGS AND HEARING THINGS Endocrine/Metabolic History: Reports: Obesity/BMI 30+ - Infectious Disease History Infectious Disease History: Reports: Chicken Pox - Past Surgical History Head Surgeries/Procedures: Reports: None HEENT Surgical History: Reports: None Cardiovascular Surgical History: Reports: None GI Surgical History: Reports: Cholecystectomy Endocrine Surgical History: Reports: None Social & Family History - Family History Family Medical History: Noncontributory - Tobacco Use Smoking Status *Q: Never Smoker Years of Tobacco use: 10 Packs/Tins Daily: 1 Used Tobacco, but Quit: Yes Month Tobacco Last Used: M[employer] Second Hand Smoke Exposure: Yes - Caffeine Use Caffeine Use: Reports: Tea - Alcohol Use Days Per Week of Alcohol Use: 0 - Recreational Drug Use Recreational Drug Use: No - Living Situation & Occupation Living situation: Reports: with Significant Other Occupation: Disabled (lives with Boyfriend in [place], [place].) ED ROS GENERAL - Review of Systems Review Of Systems: See Below Constitutional: Denies: Fever, Chills Respiratory: Denies: Shortness of Breath Cardiovascular: Denies: Chest Pain GI/Abdominal: Denies: Abdominal Pain, Nausea, Vomiting Skin: Reports: No Symptoms Neurological: Denies: Headache Psychiatric: Reports: Hallucinations ED EXAM, BEHAVIORAL HEALTH - Physical Exam Exam: See Below Exam Limited By: No Limitations General Appearance: Alert, No Apparent Distress Eye Exam: Bilateral Eye: EOMI Respiratory/Chest: No Respiratory Distress, Lungs Clear Cardiovascular: Regular Rate, Rhythm Neurological: Alert, Normal Mood/Affect Psychiatric: Alert, Normal Affect, Auditory Hallucinations, Visual Hallucinations. No: Suicidal Thoughts Skin Exam: Warm, Dry COURSE, BEHAVIORAL HEALTH COMP - Course Vital Signs: Last Vital Signs Temp 98.8 F 06/23/17 16:52 Pulse 107 H 06/23/17 16:52 Resp 25 H 06/23/17 16:52 BP 160/119 H 06/23/17 16:52 Pulse Ox 93 L 06/23/17 16:52 Re-Assessment/Re-Exam: I asked the patient if she would ever hurt herself despite what the "little green men" are telling her. She said of course not, she would never harm herself. She seems like a very minimal risk for self injury, so we discussed her medications and increased her Zyprexa 20 mg at bedtime from 10 mg. Departure - Departure Time of Disposition: 17:37 Disposition: Home, Self-Care 01 Condition: Fair Clinical Impression: Hallucinations - Discharge Information Referrals: Abdifatah Aguirre MD [Primary Care Provider] - Forms: ED Department Discharge Care Plan Goals: increase her evening dose of Zyprexa 20 mg or 2 pills. Recheck as scheduled. Return anytime if worsening or concerns.
== END 2017-06-23 17:37 | disposition home or self-care (01) ==
LOC: JP.ED 16:42
DX: R44.0 Auditory hallucinations (principal); R44.1 Visual hallucinations; I10 Essential (primary) hypertension; K21.9 Gastro-esophageal reflux disease without esophagitis; F32.9 Major depressive disorder, single episode, unspecified; E66.9 Obesity, unspecified; Z68.44 Body mass index [BMI] 60.0-69.9, adult; Z79.899 Other long term (current) drug therapy; Z88.0 Allergy status to penicillin; Z88.1 Allergy status to other antibiotic agents; Z90.49 Acquired absence of other specified parts of digestive tract
CPT/HCPCS: 99284; 99285

== ENCOUNTER 2017-06-30 14:17 | Emergency (ER) | payer MEDICARE, MEDICAID ==
[2017-06-30 15:26] VITALS: BP 140/99
--- NOTE | 2017-06-30 15:43 | EDM.PDOC ---
ED HPI GENERAL MEDICAL PROBLEM - General Chief Complaint: Chest Pain Stated Complaint: CHEST PAINS, SOB COUGHING Time Seen by Provider: 06/30/17 15:38 Source of Information: Reports: Patient History Limitations: Reports: No Limitations - History of Present Illness INITIAL COMMENTS - FREE TEXT/NARRATIVE: With chest pain starting this morning after waking up. Staying constant. Is midsternal. Non radiating. Feeling well lately. No recent illness. No fevers. Feels like her mood is good today. History of mental illness. Had been staying with her parents the last 3 days for increase in anxiety. No shortness of breath. Appetite is good. Father with her today. Reports history of ulcers. Does not smoke. Does drink a lot of pop. Onset: Today Onset Date: 06/30/17 Onset Time: 15:42 Duration: Constant Location: Reports: Chest Quality: Reports: Stabbing Improves with: Reports: None Worsens with: Reports: None Associated Symptoms: Reports: Chest Pain Left Arm Pain Score (Numeric/FACES): 7 - Related Data Allergies Allergy/AdvReac Type Severity Reaction Status Date / Time amoxicillin Allergy Hives Verified 06/04/17 13:56 Penicillins Allergy Hives Verified 06/04/17 13:56 Home Meds: Home Meds Norethindrone-Ethinyl Estrad [Dasetta 1-35-28 Tablet] 1 tab PO DAILY 02/04/15 [ History] ClonazePAM [KlonoPIN] 1 tab PO TID 11/06/16 [History] Gabapentin [Neurontin] 300 mg PO BEDTIME 11/06/16 [History] Lurasidone HCl [Latuda] 40 mg PO DAILY 11/06/16 [History] Omeprazole 20 mg PO DAILY 11/06/16 [History] Polyethylene Glycol 3350 1,000 gm MC DAILY 11/06/16 [History] QUEtiapine [SEROquel] 100 mg PO BEDTIME 11/06/16 [History] Sertraline [Zoloft] 100 mg PO BEDTIME 11/06/16 [History] Zolpidem [Ambien] 10 mg PO BEDTIME 11/06/16 [History] buPROPion [Wellbutrin XL] 150 mg PO DAILY 11/06/16 [History] traZODone 100 mg PO BEDTIME 11/06/16 [History] Metoprolol Tartrate [Lopressor] 25 mg PO DAILY 04/24/17 [History] OLANZapine [ZyPREXA] 20 mg PO BEDTIME 06/04/17 [History] OLANZapine [ZyPREXA] 15 mg PO DAILY 06/23/17 [History] Past Medical History HEENT History: Reports: Impaired Vision Cardiovascular History: Reports: Hypertension Gastrointestinal History: Reports: GERD Psychiatric History: Reports: Depression, Other (See Below) Other Psychiatric History: SEEING THINGS AND HEARING THINGS Endocrine/Metabolic History: Reports: Obesity/BMI 30+ - Infectious Disease History Infectious Disease History: Reports: Chicken Pox - Past Surgical History Head Surgeries/Procedures: Reports: None HEENT Surgical History: Reports: None Cardiovascular Surgical History: Reports: None GI Surgical History: Reports: Cholecystectomy Endocrine Surgical History: Reports: None Social & Family History - Family History Family Medical History: Noncontributory - Tobacco Use Smoking Status *Q: Never Smoker Years of Tobacco use: 10 Packs/Tins Daily: 1 Used Tobacco, but Quit: Yes Month Tobacco Last Used: MARCH Second Hand Smoke Exposure: Yes - Caffeine Use Caffeine Use: Reports: Soda - Alcohol Use Days Per Week of Alcohol Use: 0 - Recreational Drug Use Recreational Drug Use: No - Living Situation & Occupation Living situation: Reports: with Significant Other Occupation: Disabled (lives with Boyfriend in [place], [place].) ED ROS GENERAL - Review of Systems Review Of Systems: See Below Constitutional: Reports: No Symptoms HEENT: Reports: No Symptoms Respiratory: Reports: No Symptoms Cardiovascular: Reports: Chest Pain Endocrine: Reports: No Symptoms GI/Abdominal: Reports: No Symptoms : Reports: No Symptoms Musculoskeletal: Reports: No Symptoms Skin: Reports: No Symptoms Neurological: Reports: No Symptoms Psychiatric: Reports: Anxiety ED EXAM, GENERAL - Physical Exam Exam: See Below Exam Limited By: No Limitations General Appearance: Alert, WD/WN, No Apparent Distress Nose: Normal Inspection, Normal Mucosa, No Blood Throat/Mouth: Normal Inspection, Normal Lips, Normal Teeth, Normal Gums, Normal Oropharynx, Normal Voice, No Airway Compromise Head: Atraumatic, Normocephalic Neck: Normal Inspection, Supple, Non-Tender, Full Range of Motion Respiratory/Chest: No Respiratory Distress, Lungs Clear, Normal Breath Sounds, No Accessory Muscle Use, Chest Non-Tender Cardiovascular: Normal Peripheral Pulses, Regular Rate, Rhythm, No Edema, No Gallop, No JVD, No Murmur, No Rub GI/Abdominal: Normal Bowel Sounds, Soft, Non-Tender, No Organomegaly, No Distention, No Abnormal Bruit, No Mass Psychiatric: Normal Affect, Normal Mood Skin Exam: Warm, Dry, Intact, Normal Color, No Rash Course - Vital Signs Last Recorded V/S: Last Vital Signs Temp 97.3 F 06/30/17 15:26 Pulse 90 06/30/17 15:26 Resp 22 H 06/30/17 15:26 BP 140/99 H 06/30/17 15:26 Pulse Ox 98 06/30/17 15:26 - Orders/Labs/Meds Orders: Active Orders 24 hr Category Date Time Status EKG Documentation Completion [RC] ASDIRECTED Care 06/30/17 15:44 Active EKG 12 Lead [EK] Routine Ther 06/30/17 15:43 Ordered Labs: Laboratory Tests 06/30/17 06/30/17 Range/Units 15:25 15:25 WBC 9.7 (4.5-11.0) K/uL RBC 4.30 (3.30-5.50) M/uL Hgb 11.4 L (12.0-15.0) g/dL Hct 37.4 (36.0-48.0) % MCV 87 (80-98) fL MCH 27 (27-31) pg MCHC 31 L (32-36) % Plt Count 349 (150-400) K/uL Neut % (Auto) 60 (36-66) % Lymph % (Auto) 26 (24-44) % Kendall % (Auto) 11 H (2-6) % Eos % (Auto) 3 (2-4) % Baso % (Auto) 0 (0-1) % Sodium 142 (140-148) mmol/L Potassium 4.3 (3.6-5.2) mmol/L Chloride 106 (100-108) mmol/L Carbon Dioxide 30 (21-32) mmol/L Anion Gap 6.5 (5.0-14.0) mmol/L BUN 15 (7-18) mg/dL Creatinine 0.8 (0.6-1.0) mg/dL Est Cr Clr Drug Dosing 85.56 mL/min Estimated GFR (MDRD) > 60 (>60) Glucose 91 (74-106) mg/dL Calcium 8.5 (8.5-10.1) mg/dL Total Bilirubin 0.3 (0.2-1.0) mg/dL AST 16 (15-37) U/L ALT 26 (12-78) U/L Alkaline Phosphatase 90 (46-116) U/L Troponin I < 0.017 (0.000-0.056) ng/mL Total Protein 7.7 (6.4-8.2) g/dL Albumin 3.0 L (3.4-5.0) g/dL Globulin 4.7 H (2.3-3.5) g/dL Albumin/Globulin Ratio 0.6 L (1.2-2.2) Meds: Medications Discontinued Medications Generic Name Dose Route Start Last Admin Trade Name Freq PRN Reason Stop Dose Admin Alprazolam 0.5 mg 06/30/17 16:18 Xanax PO 06/30/17 16:19 NOW ONE Al Hydroxide/Mg Hydroxide 15 0 ml 06/30/17 15:47 06/30/17 16:01 ml/ Lidocaine HCl 15 ml PO 06/30/17 15:48 15 ml ONETIME ONE Administration Departure - Departure Time of Disposition: 16:20 Disposition: Home, Self-Care 01 Condition: Good Clinical Impression: GERD (gastroesophageal reflux disease) Qualifiers: Esophagitis presence: without esophagitis Qualified Code(s): K21.9 - Gastro- esophageal reflux disease without esophagitis Instructions: Nonspecific Chest Pain, [id number] Referrals: Abdifatah Aguirre MD [Primary Care Provider] - Forms: ED Department Discharge Additional Instructions: EKG with normal sinus rhythm, no acute ST changes. Labs WNL. GI cocktail does improve symptoms. Xanax 0.5mg po given for anxiety. Pt to followup with her psychiatrist tomorrow. Discussed continuing Omeprazole. Limit caffeine, spicy foods and reduce portion sizes. Pain does not appear to be cardiac in nature. - Problem List & Annotations (1) GERD (gastroesophageal reflux disease) SNOMED Code(s): 063886258 Code(s): K21.9 - GASTRO-ESOPHAGEAL REFLUX DISEASE WITHOUT ESOPHAGITIS Status: Acute Priority: Medium Current Visit: Yes Qualifiers: Esophagitis presence: without esophagitis Qualified Code(s): K21.9 - Gastro -esophageal reflux disease without esophagitis - My Orders Last 24 Hours: My Active Orders 06/30/17 15:43 EKG 12 Lead [EK] Routine 06/30/17 15:44 EKG Documentation Completion [RC] ASDIRECTED - Assessment/Plan Last 24 Hours: My Active Orders 06/30/17 15:43 EKG 12 Lead [EK] Routine 06/30/17 15:44 EKG Documentation Completion [RC] ASDIRECTED
[2017-06-30] MEDS ORDERED: Alum Hydrox/Mag Hydrox/Simeth 15 ML, Lidocaine 2% 15 ML PO ONE ×2 (15:47)
[2017-06-30] MEDS ORDERED: ALPRAZolam 0.5 MG Tab PO ONE (16:18)
== END 2017-06-30 16:29 | disposition home or self-care (01) ==
LOC: JP.ED 14:17
DX: K21.9 Gastro-esophageal reflux disease without esophagitis (principal); I10 Essential (primary) hypertension; E66.9 Obesity, unspecified; Z90.49 Acquired absence of other specified parts of digestive tract; Z79.899 Other long term (current) drug therapy; Z88.0 Allergy status to penicillin; Z88.1 Allergy status to other antibiotic agents
CPT/HCPCS: 36415; 80053; 84484; 85025; 93005; 93010; 99285; A9270; 99284

== ENCOUNTER 2017-07-07 09:23 | Emergency (ER) | payer MEDICARE, MEDICAID ==
[2017-07-07 09:58] VITALS: BP 142/96
[2017-07-07] MEDS ORDERED: LORazepam 1 MG Tab PO ONE (11:20)
--- NOTE | 2017-07-07 11:24 | EDM.PDOCBH ---
ED HPI GENERAL MEDICAL PROBLEM - General Chief Complaint: Behavioral/Psych Stated Complaint: EVAL Time Seen by Provider: 07/07/17 11:00 Source of Information: Reports: Patient History Limitations: Reports: No Limitations - History of Present Illness INITIAL COMMENTS - FREE TEXT/NARRATIVE: Wendi presents today with complaints of hallucinations. Onset: Today, Sudden Duration: Hour(s): Location: Reports: Other (Patient reports visual and auditory hallucinations of little green men. ) Improves with: Reports: None Worsens with: Reports: Other (being by herself. ) Associated Symptoms: Reports: No Other Symptoms - Related Data Allergies Allergy/AdvReac Type Severity Reaction Status Date / Time amoxicillin Allergy Hives Verified 07/07/17 09:58 Penicillins Allergy Hives Verified 07/07/17 09:58 Home Meds: Home Meds Norethindrone-Ethinyl Estrad [Dasetta 1-35-28 Tablet] 1 tab PO DAILY 02/04/15 [ History] ClonazePAM [KlonoPIN] 1 tab PO TID 11/06/16 [History] Gabapentin [Neurontin] 300 mg PO BEDTIME 11/06/16 [History] Lurasidone HCl [Latuda] 40 mg PO DAILY 11/06/16 [History] Omeprazole 20 mg PO DAILY 11/06/16 [History] Polyethylene Glycol 3350 1,000 gm MC DAILY 11/06/16 [History] QUEtiapine [SEROquel] 300 mg PO BEDTIME 11/06/16 [History] Sertraline [Zoloft] 100 mg PO BEDTIME 11/06/16 [History] Zolpidem [Ambien] 10 mg PO BEDTIME 11/06/16 [History] buPROPion [Wellbutrin XL] 150 mg PO DAILY 11/06/16 [History] traZODone 100 mg PO BEDTIME 11/06/16 [History] Metoprolol Tartrate [Lopressor] 25 mg PO DAILY 04/24/17 [History] OLANZapine [ZyPREXA] 20 mg PO BEDTIME 06/04/17 [History] OLANZapine [ZyPREXA] 15 mg PO DAILY 06/23/17 [History] Past Medical History HEENT History: Reports: Impaired Vision Cardiovascular History: Reports: Hypertension Gastrointestinal History: Reports: GERD Psychiatric History: Reports: Depression, Other (See Below) Other Psychiatric History: SEEING THINGS AND HEARING THINGS Endocrine/Metabolic History: Reports: Obesity/BMI 30+ - Infectious Disease History Infectious Disease History: Reports: Chicken Pox - Past Surgical History Head Surgeries/Procedures: Reports: None HEENT Surgical History: Reports: None Cardiovascular Surgical History: Reports: None GI Surgical History: Reports: Cholecystectomy Endocrine Surgical History: Reports: None Social & Family History - Family History Family Medical History: Noncontributory - Tobacco Use Smoking Status *Q: Never Smoker Years of Tobacco use: 10 Packs/Tins Daily: 1 Used Tobacco, but Quit: Yes Month Tobacco Last Used: MARCH Second Hand Smoke Exposure: Yes - Caffeine Use Caffeine Use: Reports: Soda - Alcohol Use Days Per Week of Alcohol Use: 0 - Recreational Drug Use Recreational Drug Use: No - Living Situation & Occupation Living situation: Reports: with Significant Other Occupation: Disabled (lives with Boyfriend in [place], [place].) ED ROS GENERAL - Review of Systems Review Of Systems: See Below Constitutional: Denies: Fever, Chills HEENT: Reports: No Symptoms Respiratory: Denies: Shortness of Breath, Cough, Sputum Cardiovascular: Reports: No Symptoms Endocrine: Reports: No Symptoms GI/Abdominal: Reports: No Symptoms : Reports: No Symptoms Musculoskeletal: Reports: No Symptoms Skin: Reports: No Symptoms Neurological: Denies: Confusion, Dizziness, Headache, Numbness, Paresthesia, Change in Speech, Gait Disturbance Psychiatric: Reports: Anxiety, Hallucinations. Denies: Agitation, Confusion, Cravings, Depression, Homicidal Ideation, Mood Lability, Suicidal Ideation Hematologic/Lymphatic: Reports: No Symptoms Immunologic: Reports: No Symptoms ED EXAM, BEHAVIORAL HEALTH - Physical Exam Exam: See Below Text/Narrative:: Wendi is an alert and oriented 36 year old female presenting to the ER today with complaints of hallucinations. She reports seeing little green men. She states they have clothes on. When asked to described the little green men she stats, there is only one, he is about 200 pounds. She denies thoughts of wanting to hurt herself or harm others. She states she feels better when she is not alone. At this time, her boyfriend is admitted to in-patient psych in [place]. Wendi sees little green men after her boyfriend calls her and hangs up on her. General Appearance: Alert, No Apparent Distress, Obese, Other (Clothing and hair dishevelled. ) Eye Exam: Bilateral Eye: EOMI, Normal Inspection, PERRL Ears: Normal External Exam, Normal Canal, Hearing Grossly Normal, Normal TMs Nose: Normal Inspection, Normal Mucosa, No Blood Throat/Mouth: Normal Inspection, Normal Lips, Normal Teeth, Normal Gums, Normal Oropharynx, Normal Voice, No Airway Compromise Head: Atraumatic, Normocephalic Neck: Normal Inspection, Supple, Non-Tender, Full Range of Motion. No: Lymphadenopathy (R), Lymphadenopathy (L) Respiratory/Chest: No Respiratory Distress, Lungs Clear, Normal Breath Sounds, No Accessory Muscle Use, Chest Non-Tender Cardiovascular: Normal Peripheral Pulses, Regular Rate, Rhythm, No Edema, No Murmur, No Rub GI/Abdominal: Normal Bowel Sounds, Soft, Non-Tender, No Distention, No Abnormal Bruit Back Exam: Normal Inspection, Full Range of Motion. No: CVA Tenderness (R), CVA Tenderness (L) Extremities: Normal Inspection, Normal Range of Motion, Non-Tender, No Pedal Edema, Normal Capillary Refill Neurological: Alert, Normal Mood/Affect, CN II-XII Intact, Normal Cognition, Normal Gait, No Motor/Sensory Deficits, Oriented x 3 Psychiatric: Alert, Normal Affect, Normal Cognition, Normal Mood, Oriented, Auditory Hallucinations, Visual Hallucinations. No: Agitated, Homicidal Thoughts, Suicidal Plan, Suicidal Thoughts, Grandiose Thoughts, Paranoid Thoughts, Threatening Behavior Skin Exam: Warm, Dry, Intact, Normal color, No rash COURSE, BEHAVIORAL HEALTH COMP - Course Vital Signs: Last Vital Signs Temp 37.3 C 07/07/17 09:57 Pulse 116 H 07/07/17 09:57 Resp 22 H 07/07/17 09:57 BP 142/96 H 07/07/17 09:57 Pulse Ox 96 07/07/17 09:57 Orders, Labs, Meds: Medications Discontinued Medications Generic Name Dose Route Start Last Admin Trade Name Jamilq PRN Reason Stop Dose Admin Lorazepam 1 mg 07/07/17 11:20 07/07/17 11:23 Ativan PO 07/07/17 11:21 1 mg ONETIME ONE Administration Re-Assessment/Re-Exam: Patient father present to discuss plan with Wendi's care. He is in agreement with plan for Wendi to stay with him and his to make sure she is safe. Wendi can follow up with Dr. Aguirre this week for follow up. Wendi will also keep her appointment with Srinivaslowell. Departure - Departure Time of Disposition: 11:19 Disposition: Home, Self-Care 01 Condition: Good Clinical Impression: Hallucinations, Anxiety - Discharge Information Instructions: Panic Attacks, [id number] Referrals: Abdifatah Aguirre MD [Primary Care Provider] - Forms: ED Department Discharge Additional Instructions: You suffer from anxiety and hallucinations that appear when you are by yourself. Take your medications as directed. This is best managed by your mental health provider Altaf Patino. You have an appointment coming up in one to two weeks to see him. Keep this appointment. It is best for you to stay with your parents due to the appearance of hallucinations when you are in your rental house. Return to your primary care provider this week for a re-check. - Assessment/Plan Assessment:: Hallucinations Anxiety Plan: Take medications as directed. This is best managed by mental health provider Altaf Patino. Patient has an appointment coming up in one to two weeks to see him. Keep this appointment. It is best for her to stay with your parents due to the appearance of hallucinations when she is in her rental house. Return to her primary care provider this week for a re-check.
== END 2017-07-07 11:47 | disposition home or self-care (01) ==
LOC: JP.ED 09:23
DX: R44.1 Visual hallucinations (principal); R44.0 Auditory hallucinations; F41.9 Anxiety disorder, unspecified; F32.9 Major depressive disorder, single episode, unspecified; K21.9 Gastro-esophageal reflux disease without esophagitis; I10 Essential (primary) hypertension; E66.9 Obesity, unspecified; Z68.44 Body mass index [BMI] 60.0-69.9, adult; Z90.49 Acquired absence of other specified parts of digestive tract; Z79.899 Other long term (current) drug therapy; Z88.0 Allergy status to penicillin; Z88.1 Allergy status to other antibiotic agents
CPT/HCPCS: 99285; A9270; 99284

== ENCOUNTER 2017-10-06 13:55 | Emergency (ER) | payer MEDICARE, MEDICAID ==
[2017-10-06] MEDS ORDERED: Albuterol/Ipratropium 3.0-0.5 MG/3 ML Neb Soln NEB ONE (14:35)
--- NOTE | 2017-10-06 14:40 | EDM.PDOC ---
ED HPI GENERAL MEDICAL PROBLEM - General Chief Complaint: Respiratory Problem Stated Complaint: COLD SOME DIFFICULITY BREATHING Time Seen by Provider: 10/06/17 14:25 Source of Information: Reports: Patient, Family History Limitations: Reports: No Limitations - History of Present Illness INITIAL COMMENTS - FREE TEXT/NARRATIVE: 36-year-old female over the last 12 hours has developed a cough, slight chest pressure and tightness. No significant fever, a slight scratchy throat. Cough is nonproductive, no nausea or vomiting. Onset: Gradual (Over the past 12 hours) Location: Reports: Chest Severity: Mild Associated Symptoms: Reports: Cough, Malaise, Shortness of Breath. Denies: Fever/Chills, Headaches Chest Pain Score (Numeric/FACES): 2 - Related Data Allergies Allergy/AdvReac Type Severity Reaction Status Date / Time amoxicillin Allergy Hives Verified 07/07/17 09:58 Penicillins Allergy Hives Verified 07/07/17 09:58 Home Meds: Home Meds Norethindrone-Ethinyl Estrad [Dasetta 1-35-28 Tablet] 1 tab PO DAILY 02/04/15 [ History] ClonazePAM [KlonoPIN] 1 tab PO TID 11/06/16 [History] Gabapentin [Neurontin] 300 mg PO BEDTIME 11/06/16 [History] Lurasidone HCl [Latuda] 40 mg PO DAILY 11/06/16 [History] Omeprazole 20 mg PO DAILY 11/06/16 [History] Polyethylene Glycol 3350 1,000 gm MC DAILY 11/06/16 [History] QUEtiapine [SEROquel] 300 mg PO BEDTIME 11/06/16 [History] Sertraline [Zoloft] 100 mg PO BEDTIME 11/06/16 [History] Zolpidem [Ambien] 10 mg PO BEDTIME 11/06/16 [History] buPROPion [Wellbutrin XL] 150 mg PO DAILY 11/06/16 [History] traZODone 100 mg PO BEDTIME 11/06/16 [History] Metoprolol Tartrate [Lopressor] 25 mg PO DAILY 04/24/17 [History] OLANZapine [ZyPREXA] 20 mg PO BEDTIME 06/04/17 [History] OLANZapine [ZyPREXA] 15 mg PO DAILY 06/23/17 [History] Past Medical History HEENT History: Reports: Impaired Vision Cardiovascular History: Reports: Hypertension Gastrointestinal History: Reports: GERD Psychiatric History: Reports: Depression, Other (See Below) Other Psychiatric History: SEEING THINGS AND HEARING THINGS Endocrine/Metabolic History: Reports: Obesity/BMI 30+ - Infectious Disease History Infectious Disease History: Reports: Chicken Pox - Past Surgical History Head Surgeries/Procedures: Reports: None HEENT Surgical History: Reports: None Cardiovascular Surgical History: Reports: None GI Surgical History: Reports: Cholecystectomy Endocrine Surgical History: Reports: None Social & Family History - Family History Family Medical History: Noncontributory - Tobacco Use Smoking Status *Q: Never Smoker Years of Tobacco use: 10 Packs/Tins Daily: 1 Used Tobacco, but Quit: Yes Month Tobacco Last Used: MARCH Second Hand Smoke Exposure: Yes - Caffeine Use Caffeine Use: Reports: Tea - Alcohol Use Days Per Week of Alcohol Use: 0 - Recreational Drug Use Recreational Drug Use: No - Living Situation & Occupation Living situation: Reports: with Significant Other Occupation: Disabled (lives with Boyfriend in [place], [place].) ED ROS GENERAL - Review of Systems Review Of Systems: See Below Constitutional: Reports: Malaise. Denies: Fever, Chills HEENT: Reports: Throat Pain (Scratchy, no significant pain) Respiratory: Reports: Shortness of Breath, Cough. Denies: Sputum Cardiovascular: Reports: Chest Pain (Anterior chest pain with breathing) GI/Abdominal: Reports: Other (Morbidly obese). Denies: Abdominal Pain Musculoskeletal: Reports: Other (Chronic lower extremity edema) Neurological: Reports: No Symptoms ED EXAM, GENERAL - Physical Exam Exam: See Below Exam Limited By: No Limitations General Appearance: Alert, No Apparent Distress Eye Exam: Bilateral Eye: EOMI Throat/Mouth: Normal Inspection Respiratory/Chest: No Respiratory Distress, Wheezing (Patient does have diffuse expiratory wheezes heard posteriorly), Other (I can reproduce some chest discomfort with palpation of the sternal area) GI/Abdominal: Non-Tender, Other (Morbidly obese) Course - Vital Signs Last Recorded V/S: Last Vital Signs Temp 97.9 F 10/06/17 14:22 Pulse 98 10/06/17 15:06 Resp 18 10/06/17 15:06 BP 160/87 H 10/06/17 15:06 Pulse Ox 92 L 10/06/17 15:06 - Orders/Labs/Meds Orders: Active Orders 24 hr Category Date Time Status RT Aerosol Therapy [RC] ASDIRECTED Care 10/06/17 14:35 Active Meds: Medications Discontinued Medications Generic Name Dose Route Start Last Admin Trade Name Guido PRN Reason Stop Dose Admin Albuterol/Ipratropium 3 ml 10/06/17 14:35 10/06/17 14:38 Duoneb 3.0-0.5 Mg/3 Ml NEB 10/06/17 14:36 3 ml ONETIME ONE Administration - Re-Assessments/Exams Free Text/Narrative Re-Assessment/Exam: 10/06/17 14:40 A DuoNeb was given. 10/06/17 15:05 Patient had subjective and objective improvement after the DuoNeb. She still had some expiratory wheezes but her father then added that this is a chronic finding thought to be from her extreme obesity. She was provided an albuterol metered-dose inhaler to use up to every 4 hours as needed for the next 48-72 hours and can return if worsening. Departure - Departure Time of Disposition: 15:16 Disposition: Home, Self-Care 01 Condition: Good Clinical Impression: Bronchitis Reactive airway disease Qualifiers: Asthma severity: mild Asthma persistence: intermittent Asthma complication type : with acute exacerbation Qualified Code(s): J45.21 - Mild intermittent asthma with (acute) exacerbation - Discharge Information Instructions: Shortness of Breath, [id number] Referrals: Abdifatah Aguirre MD [Primary Care Provider] - Forms: ED Department Discharge Care Plan Goals: Use inhaler 1-2 puffs every 3-4 hours as needed, activity as tolerated and return anytime if worsening such as increased shortness of breath. Consider rechecking in 2-3 days if not improving satisfactorily. - My Orders Last 24 Hours: My Active Orders 10/06/17 14:35 RT Aerosol Therapy [RC] ASDIRECTED - Assessment/Plan Last 24 Hours: My Active Orders 10/06/17 14:35 RT Aerosol Therapy [RC] ASDIRECTED
[2017-10-06 15:07] VITALS: BP 160/87
== END 2017-10-06 15:16 | disposition home or self-care (01) ==
LOC: JP.ED 13:55
DX: J45.21 Mild intermittent asthma with (acute) exacerbation (principal); J40 Bronchitis, not specified as acute or chronic; I10 Essential (primary) hypertension; K21.9 Gastro-esophageal reflux disease without esophagitis; F32.9 Major depressive disorder, single episode, unspecified; Z87.891 Personal history of nicotine dependence; Z79.899 Other long term (current) drug therapy; Z88.0 Allergy status to penicillin; Z88.1 Allergy status to other antibiotic agents
CPT/HCPCS: 94640; 99285; J7620; 99284

== ENCOUNTER 2017-11-09 11:59 | Emergency (ER) | payer MEDICARE, MEDICAID ==
[2017-11-09 12:50] VITALS: BP 180/89
[2017-11-09] MEDS ORDERED: Meclizine 25 MG Tab PO ONE (13:12)
--- NOTE | 2017-11-09 13:14 | EDM.PDOC ---
ED HPI GENERAL MEDICAL PROBLEM - General Chief Complaint: Neuro Symptoms/Deficits Stated Complaint: DIZZY AND NUMBNESS IN RIGHT LEG Time Seen by Provider: 11/09/17 13:00 Source of Information: Reports: Patient, RN Notes Reviewed History Limitations: Reports: No Limitations - History of Present Illness INITIAL COMMENTS - FREE TEXT/NARRATIVE: 37-year-old female presents emergency department today with a myriad of complaints including dizziness cough difficulty breathing she also complains of numbness in her left leg she cannot feel the leg of both medial and lateral but yet had no difficulty with ambulation states these symptoms have gone on for the last several days has not tried anything for improvement denies any trauma - Related Data Allergies Allergy/AdvReac Type Severity Reaction Status Date / Time amoxicillin Allergy Hives Verified 07/07/17 09:58 Penicillins Allergy Hives Verified 07/07/17 09:58 Home Meds: Home Meds Norethindrone-Ethinyl Estrad [Dasetta 1-35-28 Tablet] 1 tab PO DAILY 02/04/15 [ History] ClonazePAM [KlonoPIN] 1 tab PO TID 11/06/16 [History] Gabapentin [Neurontin] 300 mg PO BEDTIME 11/06/16 [History] Lurasidone HCl [Latuda] 40 mg PO DAILY 11/06/16 [History] Omeprazole 20 mg PO DAILY 11/06/16 [History] Polyethylene Glycol 3350 1,000 gm MC DAILY 11/06/16 [History] QUEtiapine [SEROquel] 300 mg PO BEDTIME 11/06/16 [History] Sertraline [Zoloft] 100 mg PO BEDTIME 11/06/16 [History] Zolpidem [Ambien] 10 mg PO BEDTIME 11/06/16 [History] buPROPion [Wellbutrin XL] 150 mg PO DAILY 11/06/16 [History] traZODone 100 mg PO BEDTIME 11/06/16 [History] Metoprolol Tartrate [Lopressor] 25 mg PO DAILY 04/24/17 [History] OLANZapine [ZyPREXA] 20 mg PO BEDTIME 06/04/17 [History] OLANZapine [ZyPREXA] 15 mg PO DAILY 06/23/17 [History] Past Medical History HEENT History: Reports: Impaired Vision Cardiovascular History: Reports: Hypertension Gastrointestinal History: Reports: GERD Psychiatric History: Reports: Depression, Other (See Below) Other Psychiatric History: SEEING THINGS AND HEARING THINGS Endocrine/Metabolic History: Reports: Obesity/BMI 30+ - Infectious Disease History Infectious Disease History: Reports: Chicken Pox - Past Surgical History Head Surgeries/Procedures: Reports: None HEENT Surgical History: Reports: None Cardiovascular Surgical History: Reports: None GI Surgical History: Reports: Cholecystectomy Endocrine Surgical History: Reports: None Social & Family History - Family History Family Medical History: Noncontributory - Tobacco Use Smoking Status *Q: Never Smoker Years of Tobacco use: 10 Packs/Tins Daily: 1 Used Tobacco, but Quit: Yes Month Tobacco Last Used: M[employer] Second Hand Smoke Exposure: Yes - Caffeine Use Caffeine Use: Reports: Tea - Alcohol Use Days Per Week of Alcohol Use: 0 - Recreational Drug Use Recreational Drug Use: No - Living Situation & Occupation Living situation: Reports: with Significant Other Occupation: Disabled (lives with Boyfriend in [place], [place].) ED ROS GENERAL - Review of Systems Review Of Systems: See Below Constitutional: Reports: Weight Gain. Denies: Fever, Chills HEENT: Reports: Vertigo Respiratory: Reports: Cough. Denies: Shortness of Breath Cardiovascular: Reports: No Symptoms GI/Abdominal: Reports: No Symptoms : Reports: No Symptoms Musculoskeletal: Reports: No Symptoms Skin: Reports: No Symptoms Neurological: Reports: Numbness (Right leg) ED EXAM, GENERAL - Physical Exam Exam: See Below Free Text/Narrative:: She was able to ambulate without difficulty examination of sensation denies sensation involvement when poked with a Q-tip however does have a withdrawal response involuntary Exam Limited By: No Limitations General Appearance: Alert, WD/WN, No Apparent Distress Head: Atraumatic, Normocephalic Neck: Normal Inspection, Supple, Non-Tender, Full Range of Motion Respiratory/Chest: No Respiratory Distress, Lungs Clear, Normal Breath Sounds, No Accessory Muscle Use Cardiovascular: Regular Rate, Rhythm, No Murmur Course - Vital Signs Last Recorded V/S: Last Vital Signs Temp 97.7 F 11/09/17 12:54 Pulse 106 H 11/09/17 12:54 Resp 22 H 11/09/17 12:54 BP 180/89 H 11/09/17 12:54 Pulse Ox 100 11/09/17 12:54 - Orders/Labs/Meds Orders: Active Orders 24 hr Category Date Time Status Chest 2V [CR] Urgent Exams 11/09/17 13:13 Taken Labs: Laboratory Tests 11/09/17 11/09/17 11/09/17 Range/Units 13:12 13:12 13:13 WBC 9.2 (4.5-11.0) K/uL RBC 5.20 (3.30-5.50) M/uL Hgb 12.6 (12.0-15.0) g/dL Hct 41.2 (36.0-48.0) % MCV 79 L (80-98) fL MCH 24 L (27-31) pg MCHC 31 L (32-36) % Plt Count 422 H (150-400) K/uL Neut % (Auto) 60 (36-66) % Lymph % (Auto) 27 (24-44) % [place] % (Auto) 9 H (2-6) % Eos % (Auto) 3 (2-4) % Baso % (Auto) 0 (0-1) % Sodium 141 (140-148) mmol/L Potassium 4.5 (3.6-5.2) mmol/L Chloride 102 (100-108) mmol/L Carbon Dioxide 31 (21-32) mmol/L Anion Gap 7.9 (5.0-14.0) mmol/L BUN 13 (7-18) mg/dL Creatinine 0.8 (0.6-1.0) mg/dL Est Cr Clr Drug Dosing 70.50 mL/min Estimated GFR (MDRD) > 60 (>60) Glucose 82 (74-106) mg/dL Calcium 9.0 (8.5-10.1) mg/dL Total Bilirubin 0.4 (0.2-1.0) mg/dL AST 24 (15-37) U/L ALT 32 (12-78) U/L Alkaline Phosphatase 90 (46-116) U/L Creatine Kinase 53 (26-192) U/L C-Reactive Protein 2.42 H (0.0-0.3) mg/dL Total Protein 7.7 (6.4-8.2) g/dL Albumin 3.2 L (3.4-5.0) g/dL Globulin 4.5 H (2.3-3.5) g/dL Albumin/Globulin Ratio 0.7 L (1.2-2.2) Meds: Medications Discontinued Medications Generic Name Dose Route Start Last Admin Trade Name Guido PRN Reason Stop Dose Admin Meclizine HCl 25 mg 11/09/17 13:12 11/09/17 13:44 Antivert PO 11/09/17 13:13 25 mg ONETIME ONE Administration Departure - Departure Time of Disposition: 14:23 Disposition: Home, Self-Care 01 Condition: Good Clinical Impression: Dizzy - Discharge Information Referrals: Abdifatah Aguirre MD [Primary Care Provider] - Forms: ED Department Discharge Additional Instructions: Use meclizine as needed to help control dizziness symptoms please follow-up with your primary care provider in the next 3-5 days for reevaluation - My Orders Last 24 Hours: My Active Orders 11/09/17 13:13 Chest 2V [CR] Urgent - Assessment/Plan Last 24 Hours: My Active Orders 11/09/17 13:13 Chest 2V [CR] Urgent Plan: Assessment Acuity = acute Site and laterality = dizziness and right leg numbness Etiology = unclear etiology Manifestations = none Location of injury = Home Lab values = CBC, CMP unremarkable CRP mildly elevated 2.5 CK within normal limits chest x-ray I did review films myself I cannot appreciate any acute process, the official read from radiology is pending Plan I did review lab work chest x-ray results with her she had some improvement with the meclizine therefore provide 25 mg by mouth 3 times a day when necessary number follow-up with her primary care in 3-5 days for reevaluation This note was dictated using [employer] voice recognition software please call with any questions on syntax or lynda.
--- NOTE | 2017-11-10 09:44 | CR ---
Chest 2V FINDINGS: There are shallow lung volumes. The heart and vascular structures are normal in appearance. No infiltrates or effusions are demonstrated. The skeletal structures are unremarkable. IMPRESSION: Negative exam.
== END 2017-11-09 14:30 | disposition home or self-care (01) ==
LOC: JP.ED 11:59
DX: R42 Dizziness and giddiness (principal); I10 Essential (primary) hypertension; K21.9 Gastro-esophageal reflux disease without esophagitis; E66.9 Obesity, unspecified; Z88.1 Allergy status to other antibiotic agents; Z88.0 Allergy status to penicillin; Z79.899 Other long term (current) drug therapy
CPT/HCPCS: 36415; 71046; 80053; 82550; 85025; 86140; 99284; A9270

== ENCOUNTER 2017-11-10 18:00 | Emergency (ER) | payer MEDICARE, MEDICAID ==
[2017-11-10 18:13] VITALS: BP 167/99
--- NOTE | 2017-11-10 18:37 | EDM.PDOCBH ---
ED HPI GENERAL MEDICAL PROBLEM - General Chief Complaint: Behavioral/Psych Stated Complaint: eval Time Seen by Provider: 11/10/17 18:30 Source of Information: Reports: Patient, Family, Police History Limitations: Reports: No Limitations - History of Present Illness INITIAL COMMENTS - FREE TEXT/NARRATIVE: 37-year-old female with chronic psychiatric conditions, hallucinations says that little green men are telling her to go steal food from the store. If she doesn't still for which she supposed to cut herself, which she has never done. Her parents told her to call them and she can stay with him when she feels this way, she called the police instead. Now that she's here she says she would be fine if she could just stay with her parents. Her boyfriend is again admitted into a psychiatric facility, these episodes tend to flareup when he is gone. She has no physical complaints. Severity: Mild Associated Symptoms: Denies: Confusion, Loss of Appetite, Malaise, Nausea/ Vomiting, Shortness of Breath, Weakness - Related Data Allergies Allergy/AdvReac Type Severity Reaction Status Date / Time amoxicillin Allergy Hives Verified 11/10/17 18:18 Penicillins Allergy Hives Verified 11/10/17 18:18 Home Meds: Home Meds Norethindrone-Ethinyl Estrad [Dasetta 1-35-28 Tablet] 1 tab PO DAILY 02/04/15 [ History] ClonazePAM [KlonoPIN] 1 tab PO TID 11/06/16 [History] Gabapentin [Neurontin] 300 mg PO BEDTIME 11/06/16 [History] Lurasidone HCl [Latuda] 40 mg PO DAILY 11/06/16 [History] Omeprazole 20 mg PO DAILY 11/06/16 [History] Polyethylene Glycol 3350 1,000 gm MC DAILY 11/06/16 [History] QUEtiapine [SEROquel] 300 mg PO BEDTIME 11/06/16 [History] Sertraline [Zoloft] 100 mg PO BEDTIME 11/06/16 [History] Zolpidem [Ambien] 10 mg PO BEDTIME 11/06/16 [History] buPROPion [Wellbutrin XL] 150 mg PO DAILY 11/06/16 [History] traZODone 100 mg PO BEDTIME 11/06/16 [History] Metoprolol Tartrate [Lopressor] 25 mg PO DAILY 06/29/17 [History] OLANZapine [ZyPREXA] 20 mg PO BEDTIME 06/04/17 [History] OLANZapine [ZyPREXA] 15 mg PO DAILY 06/23/17 [History] Past Medical History HEENT History: Reports: Impaired Vision Cardiovascular History: Reports: Hypertension Gastrointestinal History: Reports: GERD Psychiatric History: Reports: Depression, Suicidal Ideation, Other (See Below) Other Psychiatric History: SEEING THINGS AND HEARING THINGS Endocrine/Metabolic History: Reports: Obesity/BMI 30+ - Infectious Disease History Infectious Disease History: Reports: Chicken Pox - Past Surgical History HEENT Surgical History: Reports: None GI Surgical History: Reports: Cholecystectomy Social & Family History - Family History Family Medical History: Noncontributory - Tobacco Use Smoking Status *Q: Never Smoker Years of Tobacco use: 10 Packs/Tins Daily: 1 Used Tobacco, but Quit: Yes Month Tobacco Last Used: [employer] Hand Smoke Exposure: Yes - Caffeine Use Caffeine Use: Reports: Tea - Alcohol Use Days Per Week of Alcohol Use: 0 - Recreational Drug Use Recreational Drug Use: No - Living Situation & Occupation Living situation: Reports: with Significant Other Occupation: Disabled (lives with Boyfriend in [place], [place].) ED ROS GENERAL - Review of Systems Review Of Systems: See Below Constitutional: Denies: Fever, Chills, Malaise Respiratory: Denies: Shortness of Breath Cardiovascular: Denies: Chest Pain GI/Abdominal: Denies: Nausea, Vomiting Skin: Reports: No Symptoms Neurological: Reports: Paresthesia (Patient is been experiencing persistent numbness of the lateral right thigh and upper leg). Denies: Headache Psychiatric: Reports: Anxiety, Depression, Hallucinations ED EXAM, BEHAVIORAL HEALTH - Physical Exam Exam: See Below Exam Limited By: No Limitations General Appearance: Alert, No Apparent Distress Respiratory/Chest: No Respiratory Distress Cardiovascular: Regular Rate, Rhythm Extremities: Normal Inspection (No evidence of injury or scarring) Neurological: Alert, Normal Mood/Affect Psychiatric: Normal Mood. No: Depressed Mood, Flat Affect, Tearful, Agitated COURSE, BEHAVIORAL HEALTH COMP - Course Vital Signs: Last Vital Signs Temp 98.2 F 11/10/17 18:16 Pulse 109 H 11/10/17 18:16 Resp 20 11/10/17 18:16 BP 167/99 H 11/10/17 18:16 Pulse Ox 96 11/10/17 18:16 Re-Assessment/Re-Exam: Had the patient visit with her parents, they'll take her home tonight and watch her for the next couple of days. The parents agree that she is very unlikely to herself. Departure - Departure Time of Disposition: 18:48 Disposition: Home, Self-Care 01 Condition: Good Clinical Impression: Hallucinations, Depressive disorder - Discharge Information Instructions: Schizophrenia Referrals: Abdifatah Aguirre MD [Primary Care Provider] - Forms: ED Department Discharge Care Plan Goals: Continue your current medications, stay with your parents for the next few days and talk to Dr. Aguirre or your mental health care provider about improving her home conditions, possibly an [employer] worker or rehabilitation or exercise program.
== END 2017-11-10 18:48 | disposition home or self-care (01) ==
LOC: JP.ED 18:00
DX: F32.9 Major depressive disorder, single episode, unspecified (principal); R44.3 Hallucinations, unspecified; I10 Essential (primary) hypertension; E66.9 Obesity, unspecified; K21.9 Gastro-esophageal reflux disease without esophagitis; Z88.1 Allergy status to other antibiotic agents; Z88.8 Allergy status to other drugs, medicaments and biological substances; Z79.899 Other long term (current) drug therapy
CPT/HCPCS: 99284; 99285

== ENCOUNTER 2018-02-10 14:30 | Emergency (ER) | payer MEDICARE, MEDICAID ==
[2018-02-10] MEDS ORDERED: Albuterol/Ipratropium 3.0-0.5 MG/3 ML Neb Soln NEB ONE (15:15)
--- NOTE | 2018-02-10 15:19 | EDM.PDOC ---
ED HPI GENERAL MEDICAL PROBLEM - General Chief Complaint: Chest Pain Stated Complaint: WHEEZING/TROUBLE BREATHING Time Seen by Provider: 02/10/18 15:16 Source of Information: Reports: Patient, Family, Old Records, RN Notes Reviewed History Limitations: Reports: No Limitations - History of Present Illness INITIAL COMMENTS - FREE TEXT/NARRATIVE: 37-year-old female presents to the emergency department today complaint of shortness of breath, she states is been short of breath for about 24 hours has been wheezing no cough or sputum production no fevers does get short of breath with exertion denies any chest pain Middle Chest Pain Score (Numeric/FACES): 9 - Related Data Allergies Allergy/AdvReac Type Severity Reaction Status Date / Time amoxicillin Allergy Hives Verified 02/10/18 14:53 Penicillins Allergy Hives Verified 02/10/18 14:53 Home Meds: Home Meds Norethindrone-Ethinyl Estrad [Dasetta 1-35-28 Tablet] 1 tab PO DAILY 02/04/15 [ History] ClonazePAM [KlonoPIN] 1 tab PO TID 11/06/16 [History] Gabapentin [Neurontin] 300 mg PO BEDTIME 11/06/16 [History] Lurasidone HCl [Latuda] 40 mg PO DAILY 11/06/16 [History] Omeprazole 20 mg PO DAILY 11/06/16 [History] Polyethylene Glycol 3350 1,000 gm MC DAILY 11/06/16 [History] QUEtiapine [SEROquel] 300 mg PO BEDTIME 11/06/16 [History] Sertraline [Zoloft] 100 mg PO BEDTIME 11/06/16 [History] Zolpidem [Ambien] 10 mg PO BEDTIME 11/06/16 [History] buPROPion [Wellbutrin XL] 150 mg PO DAILY 11/06/16 [History] traZODone 100 mg PO BEDTIME 11/06/16 [History] Metoprolol Tartrate [Lopressor] 25 mg PO DAILY 04/24/17 [History] OLANZapine [ZyPREXA] 20 mg PO BEDTIME 06/04/17 [History] OLANZapine [ZyPREXA] 15 mg PO DAILY 06/23/17 [History] Past Medical History HEENT History: Reports: Impaired Vision Cardiovascular History: Reports: Hypertension Gastrointestinal History: Reports: GERD Psychiatric History: Reports: Depression, Suicidal Ideation, Other (See Below) Other Psychiatric History: SEEING THINGS AND HEARING THINGS Endocrine/Metabolic History: Reports: Obesity/BMI 30+ - Infectious Disease History Infectious Disease History: Reports: Chicken Pox - Past Surgical History Head Surgeries/Procedures: Reports: None HEENT Surgical History: Reports: None GI Surgical History: Reports: Cholecystectomy Social & Family History - Family History Family Medical History: Noncontributory - Tobacco Use Smoking Status *Q: Unknown Ever Smoked Years of Tobacco use: 10 Packs/Tins Daily: 1 Used Tobacco, but Quit: Yes Month/Year Tobacco Last Used: M[employer] Hand Smoke Exposure: Yes - Caffeine Use Caffeine Use: Reports: Tea - Alcohol Use Days Per Week of Alcohol Use: 0 - Recreational Drug Use Recreational Drug Use: No - Living Situation & Occupation Living situation: Reports: with Significant Other Occupation: Disabled (lives with Boyfriend in [facility]) ED ROS GENERAL - Review of Systems Review Of Systems: See Below Constitutional: Reports: No Symptoms. Denies: Fever, Chills HEENT: Reports: No Symptoms Respiratory: Reports: Shortness of Breath, Wheezing. Denies: Cough, Sputum Cardiovascular: Reports: Dyspnea on Exertion GI/Abdominal: Reports: No Symptoms : Reports: No Symptoms Musculoskeletal: Reports: No Symptoms Skin: Reports: No Symptoms Neurological: Reports: No Symptoms ED EXAM, GENERAL - Physical Exam Exam: See Below Free Text/Narrative:: General: Female, not in any distress, alert and oriented x3 HEENT: head is atraumatic normocephalic, eyes pupils equal round reactive to light, sclera clear no conjunctivitis appreciated. Ears blocked by cerumen bilaterally. Nose no septal deviation, nares are clear, no blood present. Mouth mucosa is moist and pink no erythema or exudate noted in soft palate, tongue is midline uvula is midline, dentition is intact. Neck: Supple no thyromegaly no tracheal deviation. Nodes: Cervical nodes subclavicular nodes nontender no palpable lymphadenopathy noted. Lungs: Breath sounds are distant with decreased air movement but I don't appreciate any adventitious noises CV: Regular rate and rhythm S1 and S2 appreciated no murmurs rubs or gallops noted. Abdomen: Soft, obese, nontender, no palpable masses or organomegaly appreciated , no distention no guarding bowel sounds are present, . Neuro: Cranial nerves II through XII grossly intact Skin: Warm and dry, intact Extremities: No lower extremity edema appreciated, Course - Vital Signs Last Recorded V/S: Last Vital Signs Temp 96.8 F 02/10/18 14:53 Pulse 90 02/10/18 14:53 Resp 35 H 02/10/18 14:53 BP 147/85 H 02/10/18 14:53 Pulse Ox 93 L 02/10/18 14:53 - Orders/Labs/Meds Orders: Active Orders 24 hr Category Date Time Status EKG Documentation Completion [RC] ASDIRECTED Care 02/10/18 15:14 Active RT Aerosol Therapy [RC] ASDIRECTED Care 02/10/18 15:16 Active Vital Signs [RC] Q1H Care 02/10/18 15:15 Active Chest 2V [CR] Urgent Exams 02/10/18 15:09 Taken EKG 12 Lead [EK] Urgent Ther 02/10/18 15:09 Ordered Labs: Laboratory Tests 02/10/18 02/10/18 02/10/18 Range/Units 15:27 15:27 15:27 WBC 8.5 (4.5-11.0) K/uL RBC 5.07 (3.30-5.50) M/uL Hgb 11.4 L (12.0-15.0) g/dL Hct 38.9 (36.0-48.0) % MCV 77 L (80-98) fL MCH 23 L (27-31) pg MCHC 29 L (32-36) % Plt Count 346 (150-400) K/uL Neut % (Auto) 55 (36-66) % Lymph % (Auto) 29 (24-44) % [place] % (Auto) 12 H (2-6) % Eos % (Auto) 3 (2-4) % Baso % (Auto) 0 (0-1) % Sodium 142 (140-148) mmol/L Potassium 4.7 (3.6-5.2) mmol/L Chloride 103 (100-108) mmol/L Carbon Dioxide 34 H (21-32) mmol/L Anion Gap 9.7 (5.0-14.0) mmol/L BUN 13 (7-18) mg/dL Creatinine 0.8 (0.6-1.0) mg/dL Est Cr Clr Drug Dosing 84.76 mL/min Estimated GFR (MDRD) > 60 (>60) Glucose 79 (74-106) mg/dL Lactic Acid 0.9 (0.4-2.0) mmol/L Calcium 8.6 (8.5-10.1) mg/dL Total Bilirubin 0.4 (0.2-1.0) mg/dL AST 16 (15-37) U/L ALT 19 (12-78) U/L Alkaline Phosphatase 87 (46-116) U/L Troponin I (0.000-0.056) ng/mL C-Reactive Protein (0.0-0.3) mg/dL Total Protein 7.3 (6.4-8.2) g/dL Albumin 2.9 L (3.4-5.0) g/dL Globulin 4.4 H (2.3-3.5) g/dL Albumin/Globulin Ratio 0.7 L (1.2-2.2) 02/10/18 02/10/18 Range/Units 15:27 15:27 WBC (4.5-11.0) K/uL RBC (3.30-5.50) M/uL Hgb (12.0-15.0) g/dL Hct (36.0-48.0) % MCV (80-98) fL MCH (27-31) pg MCHC (32-36) % Plt Count (150-400) K/uL Neut % (Auto) (36-66) % Lymph % (Auto) (24-44) % [place] % (Auto) (2-6) % Eos % (Auto) (2-4) % Baso % (Auto) (0-1) % Sodium (140-148) mmol/L Potassium (3.6-5.2) mmol/L Chloride (100-108) mmol/L Carbon Dioxide (21-32) mmol/L Anion Gap (5.0-14.0) mmol/L BUN (7-18) mg/dL Creatinine (0.6-1.0) mg/dL Est Cr Clr Drug Dosing mL/min Estimated GFR (MDRD) (>60) Glucose (74-106) mg/dL Lactic Acid (0.4-2.0) mmol/L Calcium (8.5-10.1) mg/dL Total Bilirubin (0.2-1.0) mg/dL AST (15-37) U/L ALT (12-78) U/L Alkaline Phosphatase (46-116) U/L Troponin I < 0.017 (0.000-0.056) ng/mL C-Reactive Protein 2.31 H (0.0-0.3) mg/dL Total Protein (6.4-8.2) g/dL Albumin (3.4-5.0) g/dL Globulin (2.3-3.5) g/dL Albumin/Globulin Ratio (1.2-2.2) Meds: Medications Discontinued Medications Generic Name Dose Route Start Last Admin Trade Name Freq PRN Reason Stop Dose Admin Albuterol/Ipratropium 3 ml 02/10/18 15:15 02/10/18 15:35 Duoneb 3.0-0.5 Mg/3 Ml NEB 02/10/18 15:16 3 ml ONETIME ONE Administration Departure - Departure Time of Disposition: 16:04 Disposition: Home, Self-Care 01 Condition: Fair Clinical Impression: Dyspnea Qualifiers: Dyspnea type: shortness of breath Qualified Code(s): R06.02 - Shortness of breath; R06.00 - Dyspnea, unspecified; R06.01 - Orthopnea - Discharge Information Referrals: Abdifatah Aguirre MD [Primary Care Provider] - Forms: ED Department Discharge Additional Instructions: Take the prednisone one tablet once a day for 3 days, use the albuterol inhaler as needed every couple hours for shortness of breath, please follow-up with your primary care provider in the next 3-5 days for reevaluation - My Orders Last 24 Hours: My Active Orders 02/10/18 15:09 Chest 2V [CR] Urgent EKG 12 Lead [EK] Urgent 02/10/18 15:14 EKG Documentation Completion [RC] ASDIRECTED 02/10/18 15:15 Vital Signs [RC] Q1H 02/10/18 15:16 RT Aerosol Therapy [RC] ASDIRECTED - Assessment/Plan Last 24 Hours: My Active Orders 02/10/18 15:09 Chest 2V [CR] Urgent EKG 12 Lead [EK] Urgent 02/10/18 15:14 EKG Documentation Completion [RC] ASDIRECTED 02/10/18 15:15 Vital Signs [RC] Q1H 02/10/18 15:16 RT Aerosol Therapy [RC] ASDIRECTED Plan: Assessment Acuity = acute Site and laterality = dyspnea Etiology = concern for underlying reactive airway disease Manifestations = none Location of injury = Home Lab values = CBC, CMP, troponin all negative chest x-ray shows no acute process pending official read radiology, EKG demonstrates a sinus rhythm no ST elevations or depressions Plan She had good improvement with the nebulizer treatment provided, auscultation after the neb treatment showed good air movement no wheezing appreciated. Plan is to discharge home with a nebulizer treatment and short course of prednisone 20 mg 1 tab by mouth daily for 3 days follow-up with primary care in 3-5 days for reevaluation This note was dictated using [employer] voice recognition software please call with any questions on syntax or lynda.
[2018-02-10 16:12] VITALS: BP 174/103
--- NOTE | 2018-02-11 09:08 | CR ---
Chest 2V HISTORY: Shortness of breath. Comparison: 11/09/2017. FINDINGS: Cardiac size and pulmonary vessels are normal. The lungs are clear. IMPRESSION: Negative AP chest.
== END 2018-02-10 16:23 | disposition home or self-care (01) ==
LOC: JP.ED 14:30
DX: R06.02 Shortness of breath (principal); I10 Essential (primary) hypertension; E66.9 Obesity, unspecified; Z87.891 Personal history of nicotine dependence; Z88.1 Allergy status to other antibiotic agents; Z88.0 Allergy status to penicillin; Z79.899 Other long term (current) drug therapy
CPT/HCPCS: 36415; 71046; 80053; 83605; 84484; 85025; 86140; 93005; 94640; 99285; J7620

== ENCOUNTER 2018-03-26 12:15 | Emergency (ER) | payer MEDICARE, MEDICAID ==
--- NOTE | 2018-03-26 14:30 | EDM.PDOC ---
<Betsey Good - Last Filed: 03/26/18 16:51> ED HPI GENERAL MEDICAL PROBLEM - General Chief Complaint: General Stated Complaint: TINGLING LEFT LEG AND ARM Time Seen by Provider: 03/26/18 13:30 Source of Information: Reports: Patient History Limitations: Reports: No Limitations - History of Present Illness INITIAL COMMENTS - FREE TEXT/NARRATIVE: Wendi is a 37 year old female with a complex past medical and psychiatric history who presents to the ED today (brought in by [facility] worker) with ~30 hours of tingling/shooting pain of left side of body from sole of foot to shoulder. Barbara said this pain started suddenly, shortly after waking yesterday while she was laying on the couch eating breakfast. She says that it is persistent, has gradually gotten worse, and rates it at 7-8/10. Tylenol did not help the pain at all. She has never experienced pain like this before. There is no known accident or trauma that incited this pain. She has also been experiencing pain in her left foot with walking for the past 24 hours or so, that she says feels a bit different than the tingling pain. She is concerned because her father recently had a stroke and is scared she may be having something similar. She formerly took gabapentin for restless leg syndrome, and that medication was discontinued in 07/13 in an attempt to decrease her degree of polypharmacy. She has been taking her medications as prescribed and says her mood has been " really good" lately and that this does not feel like a manifestation of anxiety. She denies headache, fever, changes in vision, difficulty swallowing, chest pain , shortness of breath, cough, abdominal pain, joint pain, bone pain, confusion, nausea, diarrhea, constipation, vomiting, or changes in urination. - Related Data Allergies Allergy/AdvReac Type Severity Reaction Status Date / Time amoxicillin Allergy Hives Verified 03/26/18 13:28 Penicillins Allergy Hives Verified 03/26/18 13:28 Home Meds: Home Meds Norethindrone-Ethinyl Estrad [Dasetta 1-35-28 Tablet] 1 tab PO DAILY 02/04/15 [ History] ClonazePAM [KlonoPIN] 1 tab PO TID 11/06/16 [History] Gabapentin [Neurontin] 300 mg PO BEDTIME 11/06/16 [History] Lurasidone HCl [Latuda] 40 mg PO DAILY 11/06/16 [History] Omeprazole 20 mg PO DAILY 11/06/16 [History] Polyethylene Glycol 3350 1,000 gm MC DAILY 11/06/16 [History] QUEtiapine [SEROquel] 300 mg PO BEDTIME 11/06/16 [History] Sertraline [Zoloft] 100 mg PO BEDTIME 11/06/16 [History] Zolpidem [Ambien] 10 mg PO BEDTIME 11/06/16 [History] buPROPion [Wellbutrin XL] 150 mg PO DAILY 11/06/16 [History] traZODone 100 mg PO BEDTIME 11/06/16 [History] Metoprolol Tartrate [Lopressor] 25 mg PO DAILY 04/24/17 [History] OLANZapine [ZyPREXA] 20 mg PO BEDTIME 06/04/17 [History] OLANZapine [ZyPREXA] 15 mg PO DAILY 06/23/17 [History] Past Medical History - Past Health History Medical/Surgical History: Denies Medical/Surgical History ED ROS GENERAL - Review of Systems Review Of Systems: See Below Constitutional: Denies: Fever, Fatigue, Night Sweats, Diaphoresis HEENT: Denies: Vision Change Respiratory: Denies: Shortness of Breath, Wheezing, Cough Cardiovascular: Denies: Chest Pain, Edema, Lightheadedness Endocrine: Denies: Polydypsia, Polyuria GI/Abdominal: Denies: Abdominal Pain, Constipation, Diarrhea, Decreased Appetite , Nausea, Vomiting : Denies: Discharge, Dysuria, Flank Pain Musculoskeletal: Reports: Other (left side of body from sole of left foot to superior aspect of left shoulder) Skin: Reports: No Symptoms Neurological: Reports: Tingling, Tremors (patient says she has some tremors when holding the phone). Denies: Confusion, Dizziness, Weakness ED EXAM, GENERAL - Physical Exam Exam: See Below Exam Limited By: No Limitations General Appearance: Alert, WD/WN, No Apparent Distress, Anxious, Obese, Other ( hirsuitism of chest and chin) Eye Exam: Right Eye: Abnormal EOM (disconjugate gaze, sarahi of right eye) Ears: Normal External Exam, Hearing Grossly Normal Nose: Normal Inspection, Normal Mucosa, No Blood Throat/Mouth: Normal Inspection, Normal Lips, Normal Oropharynx, Normal Voice, No Airway Compromise Head: Atraumatic, Normocephalic, Other (thinning hair) Neck: Normal Inspection, Supple, Non-Tender, Full Range of Motion Respiratory/Chest: No Respiratory Distress, Lungs Clear, Normal Breath Sounds Cardiovascular: Normal Peripheral Pulses, Regular Rate, Rhythm, No Edema GI/Abdominal: Normal Bowel Sounds, Soft, Non-Tender, No Distention Extremities: Normal Range of Motion, Normal Capillary Refill, Jacy's Sign, Other (strength and range of motion intact and equal bilaterally; patient moans in pain with any range of motion of left upper or lower extremity; patient said pain exaccerbated with any touch of left lower or upper extremity; difficult to discern edema vs fat due to obese legs--seems fairly symmetric bilaterally) Neurological: Alert, Oriented, CN II-XII Intact, Normal Reflexes, No Motor/ Sensory Deficits Psychiatric: Normal Mood, Anxious Course - Vital Signs Last Recorded V/S: Last Vital Signs Temp 36.2 C 03/26/18 13:04 Pulse 96 03/26/18 15:00 Resp 16 03/26/18 15:00 BP 168/81 H 03/26/18 15:00 Pulse Ox 96 03/26/18 14:00 - Orders/Labs/Meds Labs: Laboratory Tests 03/26/18 03/26/18 Range/Units 14:47 14:47 WBC 8.2 (4.5-11.0) K/uL RBC 5.48 (3.30-5.50) M/uL Hgb 11.8 L (12.0-15.0) g/dL Hct 40.5 (36.0-48.0) % MCV 74 L (80-98) fL MCH 22 L (27-31) pg MCHC 29 L (32-36) % Plt Count 391 (150-400) K/uL Neut % (Auto) 63 (36-66) % Lymph % (Auto) 24 (24-44) % Hawkins % (Auto) 9 H (2-6) % Eos % (Auto) 4 (2-4) % Baso % (Auto) 0 (0-1) % Sodium 139 L (140-148) mmol/L Potassium 4.3 (3.6-5.2) mmol/L Chloride 102 (100-108) mmol/L Carbon Dioxide 30 (21-32) mmol/L Anion Gap 11.3 (5.0-14.0) mmol/L BUN 14 (7-18) mg/dL Creatinine 0.8 (0.6-1.0) mg/dL Est Cr Clr Drug Dosing 81.19 mL/min Estimated GFR (MDRD) > 60 (>60) Glucose 85 (74-106) mg/dL Calcium 9.0 (8.5-10.1) mg/dL Total Bilirubin 0.5 (0.2-1.0) mg/dL AST 21 (15-37) U/L ALT 29 (12-78) U/L Alkaline Phosphatase 92 (46-116) U/L Total Protein 7.7 (6.4-8.2) g/dL Albumin 3.1 L (3.4-5.0) g/dL Globulin 4.6 H (2.3-3.5) g/dL Albumin/Globulin Ratio 0.7 L (1.2-2.2) Meds: Medications Discontinued Medications Generic Name Dose Route Start Last Admin Trade Name Guido PRN Reason Stop Dose Admin Gabapentin 300 mg 03/26/18 14:37 03/26/18 15:51 Neurontin PO 03/26/18 14:38 300 mg ONETIME ONE Administration Departure - Departure Disposition: Home, Self-Care 01 Clinical Impression: Numbness and tingling of left arm and leg, Anxiety - Discharge Information Instructions: Living With Anxiety Referrals: PCP,None [Primary Care Provider] - Forms: ED Department Discharge Care Plan Goals: rtc if symptoms get worse, gabapentin 300 po bid - Problem List Review Problem List Initiated/Reviewed/Updated: Yes - Assessment/Plan Assessment:: Barbara is a 37 year old female with complex past medical and psychiatric history who presented to the ED today with ~30 hours of gradually worsening, 8/10 sharp tingling of left lower and upper extremity. Lower extremity ultrasound was negative, in a patient with positive Jacy's sign, obesity, and OCP use, thus ruling out DVT. CBC and CMP were essentially within normal limits--except mild microcytic anemia that is chronic in nature (per chart review), and slightly worsening. Head CT showed no intracranial lesion or pathology that hasn't previously been documented. We offered her 300mg gabapentin, which she said helped quite a bit. With this normal work-up, her psychiatric history, her response to gabapentin, and her description of what seems like neuropathic pain , we discharged her with a prescription for 10 days of gabapentin and with instructions to return to clinic with new/worsening symptom. Assessment: neuropathic pain left upper and lower extremity Plan: provide reassurance, gabapentin for 10 days PRN, and return to clinic for follow-up with new/worsening symptoms Merced Good, 4 <Sarah Beth Deleon - Last Filed: 03/28/18 07:41> Past Medical History HEENT History: Reports: Impaired Vision Cardiovascular History: Reports: Hypertension Gastrointestinal History: Reports: GERD Psychiatric History: Reports: Depression, Suicidal Ideation, Other (See Below) Other Psychiatric History: SEEING THINGS AND HEARING THINGS Endocrine/Metabolic History: Reports: Obesity/BMI 30+ - Infectious Disease History Infectious Disease History: Reports: Chicken Pox - Past Surgical History Head Surgeries/Procedures: Reports: None HEENT Surgical History: Reports: None GI Surgical History: Reports: Cholecystectomy Social & Family History - Family History Family Medical History: Noncontributory - Tobacco Use Smoking Status *Q: Never Smoker Second Hand Smoke Exposure: No - Caffeine Use Caffeine Use: Reports: Tea - Recreational Drug Use Recreational Drug Use: No - Living Situation & Occupation Living situation: Reports: with Significant Other Occupation: Disabled (lives with Boyfriend in [place], [place].) Course - Orders/Labs/Meds Labs: Laboratory Tests 03/26/18 03/26/18 Range/Units 14:47 14:47 WBC 8.2 (4.5-11.0) K/uL RBC 5.48 (3.30-5.50) M/uL Hgb 11.8 L (12.0-15.0) g/dL Hct 40.5 (36.0-48.0) % MCV 74 L (80-98) fL MCH 22 L (27-31) pg MCHC 29 L (32-36) % Plt Count 391 (150-400) K/uL Neut % (Auto) 63 (36-66) % Lymph % (Auto) 24 (24-44) % Hawkins % (Auto) 9 H (2-6) % Eos % (Auto) 4 (2-4) % Baso % (Auto) 0 (0-1) % Sodium 139 L (140-148) mmol/L Potassium 4.3 (3.6-5.2) mmol/L Chloride 102 (100-108) mmol/L Carbon Dioxide 30 (21-32) mmol/L Anion Gap 11.3 (5.0-14.0) mmol/L BUN 14 (7-18) mg/dL Creatinine 0.8 (0.6-1.0) mg/dL Est Cr Clr Drug Dosing 81.19 mL/min Estimated GFR (MDRD) > 60 (>60) Glucose 85 (74-106) mg/dL Calcium 9.0 (8.5-10.1) mg/dL Total Bilirubin 0.5 (0.2-1.0) mg/dL AST 21 (15-37) U/L ALT 29 (12-78) U/L Alkaline Phosphatase 92 (46-116) U/L Total Protein 7.7 (6.4-8.2) g/dL Albumin 3.1 L (3.4-5.0) g/dL Globulin 4.6 H (2.3-3.5) g/dL Albumin/Globulin Ratio 0.7 L (1.2-2.2) Meds: Medications Discontinued Medications Generic Name Dose Route Start Last Admin Trade Name Freq PRN Reason Stop Dose Admin Gabapentin 300 mg 03/26/18 14:37 03/26/18 15:51 Neurontin PO 03/26/18 14:38 300 mg ONETIME ONE Administration - Re-Assessments/Exams Free Text/Narrative Re-Assessment/Exam: 03/28/18 07:41 pt had a neg head scan, normal labs and a neg venous doppler on the left leg. Departure - Departure Time of Disposition: 16:48 Condition: Fair
[2018-03-26] MEDS ORDERED: Gabapentin 300 MG Cap PO ONE (14:37)
[2018-03-26 15:28] VITALS: BP 168/81
--- NOTE | 2018-03-27 09:47 | US ---
No DVT within the lower extremity. Note that all of the images are labeled right and not left. Will chandrika pradote with the technologist.
== END 2018-03-26 17:02 | disposition home or self-care (01) ==
LOC: JP.ED 12:15
DX: M79.2 Neuralgia and neuritis, unspecified (principal); F41.9 Anxiety disorder, unspecified; I10 Essential (primary) hypertension; K21.9 Gastro-esophageal reflux disease without esophagitis; M79.662 Pain in left lower leg
CPT/HCPCS: 36415; 70450; 80053; 85025; 93971; 99283; 99284; A9270

== ENCOUNTER 2018-07-15 17:58 | Emergency (ER) | payer MEDICARE, MEDICAID ==
[2018-07-15 18:30] VITALS: BP 161/92
--- NOTE | 2018-07-15 18:54 | EDM.PDOCBH ---
ED HPI GENERAL MEDICAL PROBLEM - General Chief Complaint: Behavioral/Psych Stated Complaint: SUICIDAL THOUGHTS Time Seen by Provider: 07/15/18 18:30 Source of Information: Reports: Patient History Limitations: Reports: No Limitations - History of Present Illness INITIAL COMMENTS - FREE TEXT/NARRATIVE: 37-year-old female with chronic schizophrenia and hallucinations, they tell her to harm herself but she claims she wouldn't do that. There seems to be an exacerbation of her visual hallucinations and she actually was holding a knife in her hand last night but really she wouldn't hurt herself. She talked to her [employer] worker today she recommended she go to her parents house but she says it's "too stressful there". Onset: Unknown/Unsure - Related Data Allergies Allergy/AdvReac Type Severity Reaction Status Date / Time amoxicillin Allergy Hives Verified 03/26/18 13:28 Penicillins Allergy Hives Verified 03/26/18 13:28 Home Meds: Home Meds Norethindrone-Ethinyl Estrad [Dasetta 1-35-28 Tablet] 1 tab PO DAILY 02/04/15 [ History] ClonazePAM [KlonoPIN] 1 tab PO BID 11/06/16 [History] Gabapentin [Neurontin] 300 mg PO BEDTIME 11/06/16 [History] Lurasidone HCl [Latuda] 40 mg PO DAILY 11/06/16 [History] Omeprazole 20 mg PO DAILY 11/06/16 [History] Polyethylene Glycol 3350 1,000 gm MC DAILY 11/06/16 [History] Sertraline [Zoloft] 150 mg PO BEDTIME 11/06/16 [History] buPROPion [Wellbutrin XL] 150 mg PO DAILY 11/06/16 [History] traZODone 100 mg PO BEDTIME 11/06/16 [History] OLANZapine [ZyPREXA] 20 mg PO BEDTIME 06/04/17 [History] Metoprolol Succinate 25 mg PO DAILY 07/15/18 [History] Naproxen 500 mg PO BID 07/15/18 [History] Prazosin [Minpress] 5 mg PO BEDTIME 07/15/18 [History] Zolpidem Tartrate [Ambien] 10 mg PO BEDTIME 07/15/18 [History] clonazePAM [Klonopin] 0.5 mg PO BEDTIME 07/15/18 [History] Past Medical History - Past Health History Medical/Surgical History: Denies Medical/Surgical History HEENT History: Reports: Impaired Vision Cardiovascular History: Reports: Hypertension Gastrointestinal History: Reports: GERD Psychiatric History: Reports: Depression, Suicidal Ideation, Other (See Below) Other Psychiatric History: SEEING THINGS AND HEARING THINGS Endocrine/Metabolic History: Reports: Obesity/BMI 30+ - Infectious Disease History Infectious Disease History: Reports: Chicken Pox - Past Surgical History Head Surgeries/Procedures: Reports: None HEENT Surgical History: Reports: None GI Surgical History: Reports: Cholecystectomy Social & Family History - Family History Family Medical History: Noncontributory - Tobacco Use Smoking Status *Q: Never Smoker - Caffeine Use Caffeine Use: Reports: Coffee, Soda - Living Situation & Occupation Living situation: Reports: with Significant Other Occupation: Disabled (lives with Boyfriend in [place], [place].) ED ROS GENERAL - Review of Systems Review Of Systems: See Below Constitutional: Denies: Fever Respiratory: Denies: Shortness of Breath GI/Abdominal: Denies: Abdominal Pain, Nausea, Vomiting Neurological: Denies: Headache ED EXAM, BEHAVIORAL HEALTH - Physical Exam Exam: See Below Exam Limited By: No Limitations General Appearance: Alert, No Apparent Distress Eye Exam: Bilateral Eye: EOMI Respiratory/Chest: No Respiratory Distress, Lungs Clear Neurological: Alert, Normal Mood/Affect Psychiatric: Alert, Normal Affect. No: Depressed Mood, Tearful, Agitated Skin Exam: Warm, Dry COURSE, BEHAVIORAL HEALTH COMP - Course Vital Signs: Last Vital Signs Temp 98.4 F 07/15/18 18:26 Pulse 92 07/15/18 18:30 Resp 20 07/15/18 18:26 BP 161/92 H 07/15/18 18:30 Pulse Ox 95 07/15/18 18:26 Re-Assessment/Re-Exam: Talk to the patient's father and he agreed to come and get her and watch her tonight. I think her risk for self injury is actually very minimal. Departure - Departure Time of Disposition: 19:10 Disposition: Home, Self-Care 01 Condition: Good Clinical Impression: Schizophrenia Qualifiers: Schizophrenia type: unspecified Qualified Code(s): F20.9 - Schizophrenia, unspecified - Discharge Information Instructions: Living With Schizophrenia Referrals: Abdifatah Aguirre MD [Primary Care Provider] - Forms: ED Department Discharge Care Plan Goals: Continue your current medications and stay with her parents for the next 1-2 days.
== END 2018-07-15 19:08 | disposition home or self-care (01) ==
LOC: JP.ED 17:58
DX: F20.9 Schizophrenia, unspecified (principal); I10 Essential (primary) hypertension; Z79.899 Other long term (current) drug therapy; E66.9 Obesity, unspecified; Z88.0 Allergy status to penicillin; Z88.1 Allergy status to other antibiotic agents
CPT/HCPCS: 99285

== ENCOUNTER 2018-07-27 12:07 | Emergency (ER) | payer MEDICARE, MEDICAID ==
[2018-07-27 12:55] VITALS: BP 171/79
[2018-07-27] MEDS ORDERED: Albuterol 0.083% 2.5 MG/3 ML Neb Soln NEB ONE (13:09)
--- NOTE | 2018-07-27 13:38 | EDM.PDOC ---
ED HPI GENERAL MEDICAL PROBLEM - General Chief Complaint: Respiratory Problem Stated Complaint: CHEST PAIN/ SOB Time Seen by Provider: 07/27/18 12:18 Source of Information: Reports: Patient, Family (Father) History Limitations: Reports: Altered Mental Status (chronic mental illness with developmental delay.) - History of Present Illness INITIAL COMMENTS - FREE TEXT/NARRATIVE: shortness of breath: this is a 37 year old female presents to ER for concerns of shortness of breath and cough. Her Father is with her, reports she has chronic shortness of breath due to weight and not using inhalers or nebulizer properly. She has developed a cough over the past weekend due to being outside in cold weather with only T-shirt and shorts. She has mental illness. He reports she lives in her own home across from their house, she doesn't always follow her medications instructions or eat healthy. Ms. Elliott denies any fever, chills, chest pain, nausea, vomiting or diarrhea. she has not taken her inhalers due to forgetting. Onset: Gradual Duration: Day(s):, Chronic (shortness of breath) Location: Reports: Chest Quality: Reports: Other (shortness of breath with cough) Severity: Mild Improves with: Reports: Medication Worsens with: Reports: None Context: Reports: Other (chronic illness) Associated Symptoms: Reports: Cough, Shortness of Breath - Related Data Allergies Allergy/AdvReac Type Severity Reaction Status Date / Time amoxicillin Allergy Hives Verified 03/26/18 13:28 Penicillins Allergy Hives Verified 03/26/18 13:28 Home Meds: Home Meds Norethindrone-Ethinyl Estrad [Dasetta 1-35-28 Tablet] 1 tab PO DAILY 02/04/15 [ History] ClonazePAM [KlonoPIN] 1 tab PO BID 11/06/16 [History] Gabapentin [Neurontin] 300 mg PO BEDTIME 11/06/16 [History] Lurasidone HCl [Latuda] 40 mg PO DAILY 11/06/16 [History] Omeprazole 20 mg PO DAILY 11/06/16 [History] Polyethylene Glycol 3350 1,000 gm MC DAILY 11/06/16 [History] Sertraline [Zoloft] 150 mg PO BEDTIME 11/06/16 [History] buPROPion [Wellbutrin XL] 150 mg PO DAILY 11/06/16 [History] traZODone 100 mg PO BEDTIME 11/06/16 [History] OLANZapine [ZyPREXA] 20 mg PO BEDTIME 06/04/17 [History] Metoprolol Succinate 25 mg PO DAILY 07/15/18 [History] Naproxen 500 mg PO BID 07/15/18 [History] Prazosin [Minpress] 5 mg PO BEDTIME 07/15/18 [History] Zolpidem Tartrate [Ambien] 10 mg PO BEDTIME 07/15/18 [History] clonazePAM [Klonopin] 0.5 mg PO BEDTIME 07/15/18 [History] Albuterol [Ventolin HFA] 07/27/18 [History] Past Medical History - Past Health History Medical/Surgical History: Denies Medical/Surgical History HEENT History: Reports: Impaired Vision Cardiovascular History: Reports: Hypertension Gastrointestinal History: Reports: GERD Psychiatric History: Reports: Depression, Suicidal Ideation, Other (See Below) Other Psychiatric History: SEEING THINGS AND HEARING THINGS Endocrine/Metabolic History: Reports: Obesity/BMI 30+ - Infectious Disease History Infectious Disease History: Reports: Chicken Pox - Past Surgical History Head Surgeries/Procedures: Reports: None HEENT Surgical History: Reports: None GI Surgical History: Reports: Cholecystectomy Social & Family History - Family History Family Medical History: Noncontributory - Tobacco Use Smoking Status *Q: Never Smoker - Caffeine Use Caffeine Use: Reports: Coffee, Soda - Recreational Drug Use Recreational Drug Use: No - Living Situation & Occupation Living situation: Reports: with Significant Other Occupation: Disabled (lives with Boyfriend in [place], [place].) ED ROS GENERAL - Review of Systems Review Of Systems: See Below Constitutional: Reports: No Symptoms HEENT: Reports: No Symptoms Respiratory: Reports: Shortness of Breath, Cough Cardiovascular: Reports: No Symptoms Endocrine: Reports: No Symptoms GI/Abdominal: Reports: No Symptoms : Reports: No Symptoms Musculoskeletal: Reports: No Symptoms Skin: Reports: No Symptoms Neurological: Reports: No Symptoms Psychiatric: Reports: Depression, Other (schizophrenia, depression, developmental delay) Hematologic/Lymphatic: Reports: No Symptoms Immunologic: Reports: No Symptoms ED EXAM, GENERAL - Physical Exam Exam: See Below Exam Limited By: Altered Mental Status (chronic mental illness with developmental delay) General Appearance: Alert, WD/WN, No Apparent Distress, Obese (very obese, weight 407 , short stature 5 ft 3 inches.), Other Eye Exam: Bilateral Eye: EOMI, Normal Inspection Ears: Normal External Exam, Normal Canal, Hearing Grossly Normal, Normal TMs Nose: Normal Inspection, Normal Mucosa, No Blood Throat/Mouth: Normal Inspection, Normal Lips, Normal Teeth, Normal Gums, Normal Oropharynx, Normal Voice, No Airway Compromise Head: Atraumatic, Normocephalic Neck: Normal Inspection, Supple, Non-Tender, Full Range of Motion Respiratory/Chest: No Respiratory Distress, Lungs Clear, No Accessory Muscle Use , Chest Non-Tender, Decreased Breath Sounds (given albuterol nebulizer, increase airway clearance. ) Cardiovascular: Normal Peripheral Pulses, Regular Rate, Rhythm, No Edema, No Gallop, No JVD, No Murmur, No Rub GI/Abdominal: Normal Bowel Sounds, Soft, Non-Tender Back Exam: Normal Inspection, Full Range of Motion Extremities: Normal Range of Motion, Normal Capillary Refill Neurological: Alert, Normal Cognition, Normal Gait Psychiatric: Normal Affect, Normal Mood, Flat Affect Skin Exam: Warm, Dry, Intact, Normal Color, No Rash Lymphatic: No Adenopathy Course - Vital Signs Last Recorded V/S: Last Vital Signs Temp 35.8 C 07/27/18 12:54 Pulse 110 H 07/27/18 12:54 Resp 24 H 07/27/18 12:54 BP 171/79 H 07/27/18 12:54 Pulse Ox 92 L 07/27/18 12:54 - Orders/Labs/Meds Orders: Active Orders 24 hr Category Date Time Status RT Aerosol Therapy [RC] ASDIRECTED Care 07/27/18 13:09 Active Meds: Medications Discontinued Medications Generic Name Dose Route Start Last Admin Trade Name Guido PRN Reason Stop Dose Admin Albuterol 2.5 mg 07/27/18 13:09 07/27/18 13:16 Proventil Neb Soln NEB 07/27/18 13:10 2.5 mg ONETIME ONE Administration - Re-Assessments/Exams Free Text/Narrative Re-Assessment/Exam: 07/27/18 13:56 given albuterol nebulizer, increase airway clearance. discharge to home -Zithromax zpack as directed -medrol dose pack as directed -continue nebs/inhaler/home medications as directed -discussed healthy diet, drink plenty of water, avoid salty foods follow up with PCP with in the week return to ER if has any concerns Her Father and Wendi verbalized understanding of discharge plans. agree with plan of care Departure - Departure Time of Disposition: 14:03 Disposition: Home, Self-Care 01 Condition: Good Clinical Impression: Acute asthma, Bronchitis - Discharge Information *PRESCRIPTION DRUG MONITORING PROGRAM REVIEWED*: Not Applicable *COPY OF PRESCRIPTION DRUG MONITORING REPORT IN PATIENT BETZY: Not Applicable Instructions: Bronchospasm, Adult, Akso-ot-Sare Referrals: Abdifatah Aguirre MD [Primary Care Provider] - Forms: ED Department Discharge Care Plan Goals: Asthma with Bronchitis -start today Zithromax 250mg, take 2 tabs now then one tablet daily til all gone -start today Medrol dose pack as directed -continue to use Albuterol inhaler as directed -drink plenty of water, eat healthy, avoid salted foods Follow up with Primary Care for recheck in the next week, sooner in ER if has any concerns. - Problem List & Annotations (1) Acute asthma SNOMED Code(s): 573174346 Code(s): J45.909 - UNSPECIFIED ASTHMA, UNCOMPLICATED Status: Acute Priority: High Current Visit: Yes (2) Bronchitis SNOMED Code(s): 09456798 Code(s): J40 - BRONCHITIS, NOT SPECIFIED ACUTE OR CHRONIC Status: Acute Priority: High Current Visit: Yes - Problem List Review Problem List Initiated/Reviewed/Updated: Yes - My Orders Last 24 Hours: My Active Orders 07/27/18 13:09 RT Aerosol Therapy [RC] ASDIRECTED - Assessment/Plan Last 24 Hours: My Active Orders 07/27/18 13:09 RT Aerosol Therapy [RC] ASDIRECTED Plan: Asthma with Bronchitis -start today Zithromax 250mg, take 2 tabs now then one tablet daily til all gone -start today Medrol dose pack as directed -continue to use Albuterol inhaler as directed -drink plenty of water, eat healthy, avoid salted foods Follow up with Primary Care for recheck in the next week, sooner in ER if has any concerns.
== END 2018-07-27 13:58 | disposition home or self-care (01) ==
LOC: JP.ED 12:07
DX: J45.901 Unspecified asthma with (acute) exacerbation (principal); I10 Essential (primary) hypertension; K21.9 Gastro-esophageal reflux disease without esophagitis; F32.9 Major depressive disorder, single episode, unspecified; Z79.899 Other long term (current) drug therapy; Z88.1 Allergy status to other antibiotic agents; Z88.0 Allergy status to penicillin
CPT/HCPCS: 94640; 99285-25

== ENCOUNTER 2018-07-28 13:15 | Emergency (ER) | payer MEDICARE, MEDICAID ==
--- NOTE | 2018-07-28 14:27 | EDM.PDOCBH ---
<Geovanny Lawrence - Last Filed: 07/28/18 17:16> ED HPI GENERAL MEDICAL PROBLEM - General Chief Complaint: Behavioral/Psych Stated Complaint: CRISIS MEETING Time Seen by Provider: 07/28/18 13:55 Source of Information: Reports: Patient History Limitations: Reports: No Limitations - History of Present Illness INITIAL COMMENTS - FREE TEXT/NARRATIVE: 37-year-old female with chronic hallucinations and suicidal ideation called the crisis team and her ARMS worker and told them to meet her at the hospital because she was suicidal. This is a recurring pattern of behavior for her over the past many years. She saw her ex-boyfriend yesterday which triggered some suicidal thoughts, however she was in last week with the same complaint and hadn 't seen him for months. Her arms worker called and said she was on her way as well as the crisis team for an evaluation prior to her getting to the hospital. She claims she holds a knife in her hand considering cutting herself, its especially bad when the "little green men are telling her to hurt herself". She has never hurt herself and has never been hospitalized. Onset: Unknown/Unsure Worsens with: Reports: Other (Her behavior tends to worsen with exposure to her ex-boyfriend) - Related Data Allergies Allergy/AdvReac Type Severity Reaction Status Date / Time amoxicillin Allergy Hives Verified 07/28/18 13:39 Penicillins Allergy Hives Verified 07/28/18 13:39 Home Meds: Home Meds Norethindrone-Ethinyl Estrad [Dasetta 1-35-28 Tablet] 1 tab PO DAILY 02/04/15 [ History] ClonazePAM [KlonoPIN] 1 mg PO TID 11/06/16 [History] Gabapentin [Neurontin] 300 mg PO BEDTIME 11/06/16 [History] Lurasidone HCl [Latuda] 40 mg PO DAILY 11/06/16 [History] Omeprazole 20 mg PO DAILY 11/06/16 [History] Polyethylene Glycol 3350 1,000 gm MC ASDIRECTED PRN 11/06/16 [History] Sertraline [Zoloft] 150 mg PO BEDTIME 11/06/16 [History] buPROPion [Wellbutrin XL] 150 mg PO DAILY 11/06/16 [History] traZODone 100 mg PO BEDTIME 11/06/16 [History] OLANZapine [ZyPREXA] 20 mg PO BEDTIME 06/04/17 [History] Metoprolol Succinate 25 mg PO DAILY 07/15/18 [History] Naproxen 500 mg PO BID 07/15/18 [History] Prazosin [Minpress] 5 mg PO BEDTIME 07/15/18 [History] Zolpidem Tartrate [Ambien] 10 mg PO BEDTIME 07/15/18 [History] clonazePAM [Klonopin] 0.5 mg PO BEDTIME PRN 07/15/18 [History] Albuterol [Ventolin HFA] 2 puff INH Q4H PRN 07/27/18 [History] Past Medical History - Past Health History Medical/Surgical History: Denies Medical/Surgical History HEENT History: Reports: Impaired Vision Cardiovascular History: Reports: Hypertension Gastrointestinal History: Reports: GERD Psychiatric History: Reports: Depression, Suicidal Ideation, Other (See Below) Other Psychiatric History: SEEING THINGS AND HEARING THINGS Endocrine/Metabolic History: Reports: Obesity/BMI 30+ - Infectious Disease History Infectious Disease History: Reports: Chicken Pox - Past Surgical History GI Surgical History: Reports: Cholecystectomy Social & Family History - Family History Family Medical History: Noncontributory - Tobacco Use Smoking Status *Q: Never Smoker - Caffeine Use Caffeine Use: Reports: Coffee, Soda - Recreational Drug Use Recreational Drug Use: No - Living Situation & Occupation Living situation: Reports: with Significant Other Occupation: Disabled (lives with Boyfriend in [place], [place].) ED ROS GENERAL - Review of Systems Review Of Systems: See Below Constitutional: Denies: Fever, Chills Respiratory: Reports: Shortness of Breath (Was in the emergency room yesterday with a shortness of breath complaint, that is improved) Skin: Reports: No Symptoms Neurological: Denies: Confusion, Headache Psychiatric: Reports: Hallucinations, Suicidal Ideation ED EXAM, BEHAVIORAL HEALTH - Physical Exam Exam: See Below Exam Limited By: No Limitations General Appearance: Alert, No Apparent Distress Eye Exam: Bilateral Eye: Other (Disconjugate gaze, chronic) Head: Atraumatic Respiratory/Chest: No Respiratory Distress, Lungs Clear Cardiovascular: Regular Rate, Rhythm Neurological: Alert, Normal Mood/Affect Psychiatric: Depressed Mood Skin Exam: Warm, Dry COURSE, BEHAVIORAL HEALTH COMP - Course Vital Signs: Last Vital Signs Temp 99.5 F 07/28/18 13:39 Pulse 102 H 07/28/18 13:39 Resp 24 H 07/28/18 13:39 BP 189/99 H 07/28/18 16:26 Pulse Ox 90 L 07/28/18 13:39 Orders, Labs, Meds: Laboratory Tests 07/28/18 07/28/18 07/28/18 Range/Units 14:29 14:29 14:41 WBC 8.8 (4.5-11.0) K/uL RBC 5.77 H (3.30-5.50) M/uL Hgb 12.2 (12.0-15.0) g/dL Hct 41.3 (36.0-48.0) % MCV 72 L (80-98) fL MCH 21 L (27-31) pg MCHC 30 L (32-36) % Plt Count 391 (150-400) K/uL Neut % (Auto) 76 H (36-66) % Lymph % (Auto) 18 L (24-44) % Woods % (Auto) 4 (2-6) % Eos % (Auto) 1 L (2-4) % Baso % (Auto) 1 (0-1) % Sodium (140-148) mmol/L Potassium (3.6-5.2) mmol/L Chloride (100-108) mmol/L Carbon Dioxide (21-32) mmol/L Anion Gap (5.0-14.0) mmol/L BUN (7-18) mg/dL Creatinine (0.6-1.0) mg/dL Est Cr Clr Drug Dosing mL/min Estimated GFR (MDRD) (>60) Glucose (74-106) mg/dL Calcium (8.5-10.1) mg/dL Total Bilirubin (0.2-1.0) mg/dL AST (15-37) U/L ALT (12-78) U/L Alkaline Phosphatase (46-116) U/L Total Protein (6.4-8.2) g/dL Albumin (3.4-5.0) g/dL Globulin (2.3-3.5) g/dL Albumin/Globulin Ratio (1.2-2.2) Urine Color Yellow Urine Appearance Slightly cloudy Urine pH 7.0 (4.5-8.0) Ur Specific [place] 1.005 L (1.008-1.030) Urine Protein Negative (NEGATIVE) mg/dL Urine Glucose (UA) Negative (NEGATIVE) mg/dL Urine Ketones Negative (NEGATIVE) mg/dL Urine Occult Blood Negative (NEGATIVE) Urine Nitrite Negative (NEGATIVE) Urine Bilirubin Negative (NEGATIVE) Urine Urobilinogen Normal (NORMAL) mg/dL Ur Leukocyte Esterase Negative (NEGATIVE) Urine RBC 0-5 (0-5) Urine WBC 0-5 (0-5) Ur Epithelial Cells Moderate Amorphous Sediment Not seen Urine Bacteria Moderate Urine Mucus Not seen Urine Opiates Screen Negative (NEGATIVE) Ur Oxycodone Screen Negative (NEGATIVE) Urine Methadone Screen Negative (NEGATIVE) Ur Propoxyphene Screen Negative (NEGATIVE) Ur Barbiturates Screen Negative (NEGATIVE) Ur Tricyclics Screen Negative (NEGATIVE) Ur Phencyclidine Scrn Negative (NEGATIVE) Ur Amphetamine Screen Negative (NEGATIVE) U Methamphetamines Scrn Negative (NEGATIVE) Urine MDMA Screen Negative (NEGATIVE) U Benzodiazepines Scrn Negative (NEGATIVE) U Cocaine Metab Screen Negative (NEGATIVE) U Marijuana (THC) Screen Negative (NEGATIVE) 07/28/18 Range/Units 14:41 WBC (4.5-11.0) K/uL RBC (3.30-5.50) M/uL Hgb (12.0-15.0) g/dL Hct (36.0-48.0) % MCV (80-98) fL MCH (27-31) pg MCHC (32-36) % Plt Count (150-400) K/uL Neut % (Auto) (36-66) % Lymph % (Auto) (24-44) % Woods % (Auto) (2-6) % Eos % (Auto) (2-4) % Baso % (Auto) (0-1) % Sodium 139 L (140-148) mmol/L Potassium 4.4 (3.6-5.2) mmol/L Chloride 102 (100-108) mmol/L Carbon Dioxide 30 (21-32) mmol/L Anion Gap 11.4 (5.0-14.0) mmol/L BUN 17 (7-18) mg/dL Creatinine 0.9 (0.6-1.0) mg/dL Est Cr Clr Drug Dosing 72.17 mL/min Estimated GFR (MDRD) > 60 (>60) Glucose 96 (74-106) mg/dL Calcium 9.4 (8.5-10.1) mg/dL Total Bilirubin 0.5 (0.2-1.0) mg/dL AST 19 (15-37) U/L ALT 29 (12-78) U/L Alkaline Phosphatase 106 (46-116) U/L Total Protein 8.8 H (6.4-8.2) g/dL Albumin 3.5 (3.4-5.0) g/dL Globulin 5.3 H (2.3-3.5) g/dL Albumin/Globulin Ratio 0.7 L (1.2-2.2) Urine Color Urine Appearance Urine pH (4.5-8.0) Ur Specific [place] (1.008-1.030) Urine Protein (NEGATIVE) mg/dL Urine Glucose (UA) (NEGATIVE) mg/dL Urine Ketones (NEGATIVE) mg/dL Urine Occult Blood (NEGATIVE) Urine Nitrite (NEGATIVE) Urine Bilirubin (NEGATIVE) Urine Urobilinogen (NORMAL) mg/dL Ur Leukocyte Esterase (NEGATIVE) Urine RBC (0-5) Urine WBC (0-5) Ur Epithelial Cells Amorphous Sediment Urine Bacteria Urine Mucus Urine Opiates Screen (NEGATIVE) Ur Oxycodone Screen (NEGATIVE) Urine Methadone Screen (NEGATIVE) Ur Propoxyphene Screen (NEGATIVE) Ur Barbiturates Screen (NEGATIVE) Ur Tricyclics Screen (NEGATIVE) Ur Phencyclidine Scrn (NEGATIVE) Ur Amphetamine Screen (NEGATIVE) U Methamphetamines Scrn (NEGATIVE) Urine MDMA Screen (NEGATIVE) U Benzodiazepines Scrn (NEGATIVE) U Cocaine Metab Screen (NEGATIVE) U Marijuana (THC) Screen (NEGATIVE) Medications Discontinued Medications Generic Name Dose Route Start Last Admin Trade Name Guido PRN Reason Stop Dose Admin Clonazepam 1 mg 07/28/18 15:19 07/28/18 15:43 Klonopin PO 07/28/18 15:20 1 mg ONETIME ONE Administration Re-Assessment/Re-Exam: After a professional psychiatric crisis evaluation, it was recommended the patient be hospitalized for stabilization and evaluation. CBC, CMP, UA and urine drug screen were obtained. She was given her usual dose of 1 mg clonazepam orally. Labs returned normal, tox screen is negative. Patient remained stable and cooperative. Awaiting placement. Departure - Departure Disposition: DC/Tfer to Psych Hosp/Unit 65 Clinical Impression: Suicidal ideation, Suicidal ideation - Discharge Information Referrals: Abdifatah Aguirre MD [Primary Care Provider] - Forms: ED Department Discharge <OfficerAl - Last Filed: 07/28/18 18:57> Departure - Departure Time of Disposition: 18:56 Condition: Poor - Assessment/Plan Plan: Assessment Suicidal ideation Plan Acceptance was granted from [facility] she will be transported via mental health transport Dr. Mahoney accepting psychiatrist
[2018-07-28] MEDS ORDERED: ClonazePAM 0.5 MG Tab PO ONE (15:19)
[2018-07-28 19:34] VITALS: BP 165/96
== END 2018-07-28 19:48 ==
LOC: JP.ED 13:15
DX: R45.851 Suicidal ideations (principal); I10 Essential (primary) hypertension; E66.9 Obesity, unspecified; Z79.899 Other long term (current) drug therapy; Z88.0 Allergy status to penicillin; Z88.1 Allergy status to other antibiotic agents
CPT/HCPCS: 36415; 80053; 80305; 81001; 81025; 85025; 99285; A9270

== ENCOUNTER 2018-11-14 09:27 | Emergency (ER) | payer MEDICARE, MEDICAID ==
[2018-11-14 09:59] VITALS: BP 153/82
[2018-11-14] MEDS ORDERED: Alum Hydrox/Mag Hydrox/Simeth 15 ML, Lidocaine 2% 15 ML PO ONE ×2 (10:01)
--- NOTE | 2018-11-14 10:01 | EDM.PDOC ---
ED HPI GENERAL MEDICAL PROBLEM - General Chief Complaint: Abdominal Pain Stated Complaint: ABD PAINS Time Seen by Provider: 11/14/18 09:56 Source of Information: Reports: Patient History Limitations: Reports: No Limitations - History of Present Illness INITIAL COMMENTS - FREE TEXT/NARRATIVE: 38-year-old female who woke up with abdominal pain this morning. Mostly upper abdomen but she has some lower abdominal pain as well. No fevers or chills, no nausea or vomiting. She has not had this pain in the past. She has a history of cholecystectomy. Pain worsened after she ate. Onset: Unknown/Unsure (Woke with pain) Location: Reports: Abdomen Associated Symptoms: Reports: No Other Symptoms Abdominal Pain Score (Numeric/FACES): 8 - Related Data Allergies Allergy/AdvReac Type Severity Reaction Status Date / Time amoxicillin Allergy Hives Verified 09/10/18 16:42 Penicillins Allergy Hives Verified 09/10/18 16:42 Home Meds: Home Meds ClonazePAM [KlonoPIN] 1 mg PO TID 11/06/16 [History] Gabapentin [Neurontin] 300 mg PO BEDTIME 11/06/16 [History] Lurasidone HCl [Latuda] 40 mg PO DAILY 11/06/16 [History] Omeprazole 20 mg PO DAILY 11/06/16 [History] Polyethylene Glycol 3350 1,000 gm MC ASDIRECTED PRN 11/06/16 [History] Sertraline [Zoloft] 150 mg PO BEDTIME 11/06/16 [History] buPROPion [Wellbutrin XL] 150 mg PO DAILY 11/06/16 [History] Metoprolol Succinate 25 mg PO DAILY 07/15/18 [History] Prazosin [Minpress] 5 mg PO BEDTIME 07/15/18 [History] Zolpidem Tartrate [Ambien] 10 mg PO BEDTIME 07/15/18 [History] clonazePAM [Klonopin] 0.5 mg PO BEDTIME PRN 07/15/18 [History] Albuterol [Ventolin HFA] 2 puff INH Q4H PRN 07/27/18 [History] Naproxen 500 mg PO BID 09/07/18 [History] Past Medical History - Past Health History Medical/Surgical History: Denies Medical/Surgical History HEENT History: Reports: Impaired Vision Cardiovascular History: Reports: Hypertension Gastrointestinal History: Reports: GERD Psychiatric History: Reports: Depression, Suicidal Ideation, Other (See Below) Other Psychiatric History: SEEING THINGS AND HEARING THINGS Endocrine/Metabolic History: Reports: Obesity/BMI 30+ - Infectious Disease History Infectious Disease History: Reports: Chicken Pox - Past Surgical History Head Surgeries/Procedures: Reports: None HEENT Surgical History: Reports: None Cardiovascular Surgical History: Reports: None GI Surgical History: Reports: Cholecystectomy Endocrine Surgical History: Reports: None Social & Family History - Family History Family Medical History: Noncontributory - Tobacco Use Smoking Status *Q: Never Smoker - Caffeine Use Caffeine Use: Reports: None - Recreational Drug Use Recreational Drug Use: No - Living Situation & Occupation Living situation: Reports: with Significant Other Occupation: Disabled (lives with Boyfriend in [place], [place].) ED ROS GENERAL - Review of Systems Review Of Systems: See Below Constitutional: Denies: Fever, Chills, Decreased Appetite Respiratory: Denies: Shortness of Breath Cardiovascular: Denies: Chest Pain GI/Abdominal: Reports: Abdominal Pain. Denies: Constipation, Diarrhea, Nausea, Vomiting : Reports: No Symptoms Skin: Reports: No Symptoms Neurological: Denies: Headache ED EXAM, GI/ABD - Physical Exam Exam: See Below Exam Limited By: No Limitations General Appearance: Alert, No Apparent Distress Respiratory/Chest: No Respiratory Distress, Lungs Clear Cardiovascular: Regular Rate, Rhythm GI/Abdominal Exam: Normal Bowel Sounds, Tender (Reacts with tenderness to palpation across the upper abdomen, especially the epigastric area but no significant guarding or rebound) Extremities: Pedal Edema (Bilateral obesity and edema) Neurological: Alert, Oriented Skin Exam: Warm, Dry Course - Vital Signs Last Recorded V/S: Last Vital Signs Temp 95.4 F 11/14/18 09:50 Pulse 91 11/14/18 09:50 Resp 20 11/14/18 09:50 BP 153/82 H 11/14/18 09:50 Pulse Ox 91 L 11/14/18 09:50 - Orders/Labs/Meds Labs: Laboratory Tests 11/14/18 11/14/18 Range/Units 10:14 10:14 WBC 8.4 (4.5-11.0) K/uL RBC 5.26 (3.30-5.50) M/uL Hgb 13.1 (12.0-15.0) g/dL Hct 42.5 (36.0-48.0) % MCV 81 (80-98) fL MCH 25 L (27-31) pg MCHC 31 L (32-36) % Plt Count 343 (150-400) K/uL Neut % (Auto) 63 (36-66) % Lymph % (Auto) 25 (24-44) % [place] % (Auto) 10 H (2-6) % Eos % (Auto) 2 (2-4) % Baso % (Auto) 1 (0-1) % Sodium 138 L (140-148) mmol/L Potassium 4.6 (3.6-5.2) mmol/L Chloride 100 (100-108) mmol/L Carbon Dioxide 30 (21-32) mmol/L Anion Gap 12.6 (5.0-14.0) mmol/L BUN 13 (7-18) mg/dL Creatinine 0.9 (0.6-1.0) mg/dL Est Cr Clr Drug Dosing 74.62 mL/min Estimated GFR (MDRD) > 60 (>60) Glucose 113 H (74-106) mg/dL Calcium 9.3 (8.5-10.1) mg/dL Total Bilirubin 0.5 (0.2-1.0) mg/dL AST 20 (15-37) U/L ALT 42 (12-78) U/L Alkaline Phosphatase 105 (46-116) U/L Total Protein 7.4 (6.4-8.2) g/dL Albumin 3.2 L (3.4-5.0) g/dL Globulin 4.2 H (2.3-3.5) g/dL Albumin/Globulin Ratio 0.8 L (1.2-2.2) Lipase 82 (73-393) U/L Meds: Medications Discontinued Medications Generic Name Dose Route Start Last Admin Trade Name Freq PRN Reason Stop Dose Admin Al Hydroxide/Mg Hydroxide 15 0 ml 11/14/18 10:01 11/14/18 10:11 ml/ Lidocaine HCl 15 ml PO 11/14/18 10:02 15 ml ONETIME ONE Administration - Re-Assessments/Exams Free Text/Narrative Re-Assessment/Exam: 11/14/18 10:05 CBC, CMP and lipase were obtained and patient was given a GI cocktail. 11/14/18 10:36 White count was normal, hemoglobin normal, extended chemistry profile normal including a lipase. A GI cocktail provided moderate relief. I don't think further workup is necessary at this time, encouraged her to take some omeprazole for the next several days. Return if worsening. It would also be beneficial to stick to a bland diet. Departure - Departure Time of Disposition: 10:52 Disposition: Home, Self-Care 01 Condition: Good Clinical Impression: Abdominal pain Qualifiers: Abdominal location: upper abdomen, unspecified Qualified Code(s): R10.10 - Upper abdominal pain, unspecified Gastritis Qualifiers: Gastritis type: unspecified gastritis Chronicity: acute Gastritis bleeding: without bleeding Qualified Code(s): K29.00 - Acute gastritis without bleeding - Discharge Information Instructions: Abdominal Pain, Adult, [id number] Referrals: Abdifatah Aguirre MD [Primary Care Provider] - Forms: ED Department Discharge Care Plan Goals: Try 20 mg of omeprazole daily for the next 7-14 days. [place] diet is important for the next 2 days. Return if worsening at any time. Consider rechecking in 3- 4 days if not improving satisfactorily.
== END 2018-11-14 10:52 | disposition home or self-care (01) ==
LOC: JP.ED 09:27
DX: K29.00 Acute gastritis without bleeding (principal); I10 Essential (primary) hypertension; K21.9 Gastro-esophageal reflux disease without esophagitis; Z88.0 Allergy status to penicillin; Z88.1 Allergy status to other antibiotic agents; Z79.899 Other long term (current) drug therapy
CPT/HCPCS: 36415; 80053; 83690; 85025; 99284; A9270

== ENCOUNTER 2019-02-14 15:10 | Emergency (ER) | payer MEDICARE, MEDICAID ==
[2019-02-14 16:21] VITALS: BP 139/85
[2019-02-14] MEDS ORDERED: Diphtheria,Pertussis(Acell),Tetanus Vaccine 0.5 ML SDV IM ONE (17:27)
[2019-02-14] MEDS ORDERED: Bacitracin Oint 1 GM U/D Packet TOP ONE (17:27)
--- NOTE | 2019-02-14 17:31 | EDM.PDOC ---
ED HPI GENERAL MEDICAL PROBLEM - General Chief Complaint: Laceration Stated Complaint: RIGHT FIRST FINGER LACERATION Time Seen by Provider: 02/14/19 17:18 Source of Information: Reports: Patient History Limitations: Reports: No Limitations - History of Present Illness INITIAL COMMENTS - FREE TEXT/NARRATIVE: This patient was helping her mom cut up a ham and apparently the electric knife slipped and gave her a laceration on the right hand. This happened just prior to arrival. Last tetanus unknown - Related Data Allergies Allergy/AdvReac Type Severity Reaction Status Date / Time amoxicillin Allergy Hives Verified 02/14/19 16:21 Penicillins Allergy Hives Verified 02/14/19 16:21 Home Meds: Home Meds ClonazePAM [KlonoPIN] 1 mg PO TID 11/06/16 [History] Gabapentin [Neurontin] 300 mg PO BEDTIME 11/06/16 [History] Lurasidone HCl [Latuda] 40 mg PO DAILY 11/06/16 [History] Omeprazole 20 mg PO DAILY 11/06/16 [History] Polyethylene Glycol 3350 1,000 gm MC ASDIRECTED PRN 11/06/16 [History] Sertraline [Zoloft] 150 mg PO BEDTIME 11/06/16 [History] buPROPion [Wellbutrin XL] 150 mg PO DAILY 11/06/16 [History] Metoprolol Succinate 25 mg PO DAILY 07/15/18 [History] Prazosin [Minpress] 5 mg PO BEDTIME 07/15/18 [History] Zolpidem Tartrate [Ambien] 10 mg PO BEDTIME 07/15/18 [History] clonazePAM [Klonopin] 0.5 mg PO BEDTIME PRN 07/15/18 [History] Albuterol [Ventolin HFA] 2 puff INH Q4H PRN 07/27/18 [History] Naproxen 500 mg PO BID 09/07/18 [History] OLANZapine [ZyPREXA] 1 tab PO DAILY PRN 02/14/19 [History] Past Medical History - Past Health History Medical/Surgical History: Denies Medical/Surgical History HEENT History: Reports: Impaired Vision Cardiovascular History: Reports: Hypertension Gastrointestinal History: Reports: GERD Psychiatric History: Reports: Depression, Suicidal Ideation, Other (See Below) Other Psychiatric History: SEEING THINGS AND HEARING THINGS Endocrine/Metabolic History: Reports: Obesity/BMI 30+ - Infectious Disease History Infectious Disease History: Reports: Chicken Pox - Past Surgical History Head Surgeries/Procedures: Reports: None HEENT Surgical History: Reports: None Cardiovascular Surgical History: Reports: None GI Surgical History: Reports: Cholecystectomy Endocrine Surgical History: Reports: None Social & Family History - Family History Family Medical History: Noncontributory - Tobacco Use Smoking Status *Q: Never Smoker - Caffeine Use Caffeine Use: Reports: None - Living Situation & Occupation Living situation: Reports: with Significant Other Occupation: Disabled (lives with Boyfriend in [place], [place].) ED ROS GENERAL - Review of Systems Review Of Systems: ROS reveals no pertinent complaints other than HPI. ED EXAM, SKIN/RASH Exam: See Below Exam Limited By: No Limitations Skin: Wound/Incision (There is a laceration to the palmar surface of the right hand it's generally in the area of the MCP joint of the index finger. It's diagonal about 3 cm long but it's no more than about a millimeter and a half or 2 mm deep. This laceration does not need suturing. It's a clean laceration) Course - Vital Signs Last Recorded V/S: Last Vital Signs Temp 35.8 C 02/14/19 16:28 Pulse 85 02/14/19 16:28 Resp 16 02/14/19 16:28 BP 139/85 02/14/19 16:28 Pulse Ox 94 L 02/14/19 16:28 - Orders/Labs/Meds Orders: Active Orders 24 hr Category Date Time Status Vaccines to be Administered [RC] PER UNIT ROUTINE Care 02/14/19 17:28 Ordered Bacitracin [Bacitracin Oint 1 GM] Med 02/14/19 17:27 Once 1 dose TOP ONETIME ONE Diphth,Pertuss(Acell),Tet Vac [Adacel] Med 02/14/19 17:27 Once 0.5 ml IM .ONCE ONE - Re-Assessments/Exams Free Text/Narrative Re-Assessment/Exam: 02/14/19 17:30 The laceration was cleaned up by the nurse bacitracin was applied followed by a sterile dressing. She received an Adacel injection Departure - Departure Time of Disposition: 17:30 Disposition: Home, Self-Care 01 Condition: Fair Clinical Impression: Laceration of right hand - Discharge Information Referrals: Abdifatah Aguirre MD [Primary Care Provider] - Additional Instructions: Wash the wound every day with soap and water. Apply a small amount of antibiotic ointment and keep it covered with a dressing. It should heal quickly. Watch for any signs of infection. - My Orders Last 24 Hours: My Active Orders 02/14/19 17:27 Bacitracin [Bacitracin Oint 1 GM] 1 dose TOP ONETIME ONE Diphth,Pertuss(Acell),Tet Vac [Adacel] 0.5 ml IM .ONCE ONE 02/14/19 17:28 Vaccines to be Administered [RC] PER UNIT ROUTINE - Assessment/Plan Last 24 Hours: My Active Orders 02/14/19 17:27 Bacitracin [Bacitracin Oint 1 GM] 1 dose TOP ONETIME ONE Diphth,Pertuss(Acell),Tet Vac [Adacel] 0.5 ml IM .ONCE ONE 02/14/19 17:28 Vaccines to be Administered [RC] PER UNIT ROUTINE
== END 2019-02-14 17:49 | disposition home or self-care (01) ==
LOC: JP.ED 15:10
DX: S61.210A Laceration without foreign body of right index finger without damage to nail, initial encounter (principal); I10 Essential (primary) hypertension; K21.9 Gastro-esophageal reflux disease without esophagitis; Z79.899 Other long term (current) drug therapy; Z88.0 Allergy status to penicillin; Z23 Encounter for immunization; Z88.1 Allergy status to other antibiotic agents
CPT/HCPCS: 90471; 90715; 99282

== ENCOUNTER 2019-02-15 09:18 | Emergency (ER) | payer MEDICARE, MEDICAID ==
[2019-02-15 09:58] VITALS: BP 142/85
[2019-02-15] MEDS ORDERED: Bacitracin Oint 1 GM U/D Packet TOP ONE (10:27)
--- NOTE | 2019-02-15 10:28 | EDM.PDOC ---
ED HPI GENERAL MEDICAL PROBLEM - General Chief Complaint: Neurological Problem Stated Complaint: FELL-BLACKED OUT Time Seen by Provider: 02/15/19 10:15 Source of Information: Reports: Patient, Family History Limitations: Reports: No Limitations - History of Present Illness INITIAL COMMENTS - FREE TEXT/NARRATIVE: 38-year-old female who has a laceration on her right hand since yesterday, caused what sounds like a vasovagal episode after she was cut is in for a second assessment. She came in last night, but today she was still feeling woozy so her mom brought her in to make sure she was okay. Associated Symptoms: Reports: Weakness. Denies: Confusion, Chest Pain, Cough, Shortness of Breath - Related Data Allergies Allergy/AdvReac Type Severity Reaction Status Date / Time amoxicillin Allergy Hives Verified 02/14/19 16:21 Penicillins Allergy Hives Verified 02/14/19 16:21 Home Meds: Home Meds ClonazePAM [KlonoPIN] 1 mg PO TID 11/06/16 [History] Gabapentin [Neurontin] 300 mg PO BEDTIME 11/06/16 [History] Lurasidone HCl [Latuda] 40 mg PO DAILY 11/06/16 [History] Omeprazole 20 mg PO DAILY 11/06/16 [History] Polyethylene Glycol 3350 1,000 gm MC ASDIRECTED PRN 11/06/16 [History] Sertraline [Zoloft] 150 mg PO BEDTIME 11/06/16 [History] buPROPion [Wellbutrin XL] 150 mg PO DAILY 11/06/16 [History] Metoprolol Succinate 25 mg PO DAILY 07/15/18 [History] Prazosin [Minpress] 5 mg PO BEDTIME 07/15/18 [History] Zolpidem Tartrate [Ambien] 10 mg PO BEDTIME 07/15/18 [History] clonazePAM [Klonopin] 0.5 mg PO BEDTIME PRN 07/15/18 [History] Albuterol [Ventolin HFA] 2 puff INH Q4H PRN 07/27/18 [History] Naproxen 500 mg PO BID 09/07/18 [History] OLANZapine [ZyPREXA] 1 tab PO DAILY PRN 02/14/19 [History] Past Medical History - Past Health History Medical/Surgical History: Denies Medical/Surgical History HEENT History: Reports: Impaired Vision Cardiovascular History: Reports: Hypertension Gastrointestinal History: Reports: GERD Psychiatric History: Reports: Depression, Suicidal Ideation, Other (See Below) Other Psychiatric History: SEEING THINGS AND HEARING THINGS Endocrine/Metabolic History: Reports: Obesity/BMI 30+ - Infectious Disease History Infectious Disease History: Reports: Chicken Pox - Past Surgical History Head Surgeries/Procedures: Reports: None HEENT Surgical History: Reports: None Cardiovascular Surgical History: Reports: None GI Surgical History: Reports: Cholecystectomy Endocrine Surgical History: Reports: None Social & Family History - Family History Family Medical History: Noncontributory - Tobacco Use Smoking Status *Q: Never Smoker - Caffeine Use Caffeine Use: Reports: None - Recreational Drug Use Recreational Drug Use: No - Living Situation & Occupation Living situation: Reports: with Significant Other Occupation: Disabled (lives with Boyfriend in [place], [place].) ED ROS GENERAL - Review of Systems Review Of Systems: See Below Constitutional: Reports: Malaise. Denies: Fever, Chills Respiratory: Denies: Shortness of Breath GI/Abdominal: Reports: Nausea Skin: Reports: Wound (Recent laceration of the right hand) Neurological: Reports: Dizziness, Weakness ED EXAM, NEURO - Physical Exam Exam: See Below Exam Limited By: No Limitations General Appearance: Alert, No Apparent Distress Eye Exam: Bilateral Eye: Other (Chronic disconjugate gaze is baseline) Head Exam: Atraumatic Respiratory/Chest: No Respiratory Distress, Lungs Clear Cardiovascular: Regular Rate, Rhythm Neurological: Alert, Oriented x 3 Skin Exam: Warm, Dry, Other (Superficial laceration on the right palm appears to be clean and healing appropriately) Course - Vital Signs Last Recorded V/S: Last Vital Signs Temp 96.5 F 02/15/19 10:06 Pulse 97 02/15/19 10:06 Resp 20 02/15/19 10:06 BP 142/85 H 02/15/19 10:06 Pulse Ox 93 L 02/15/19 10:06 - Orders/Labs/Meds Meds: Medications Discontinued Medications Generic Name Dose Route Start Last Admin Trade Name Freq PRN Reason Stop Dose Admin Bacitracin 1 dose 02/15/19 10:27 Bacitracin Oint 1 Gm TOP 02/15/19 10:28 ONETIME ONE - Re-Assessments/Exams Free Text/Narrative Re-Assessment/Exam: 04/22/19 11:01 Vitals are completely normal, the wound is healing nicely and the patient was reassured. Smaller bacitracin was applied to the wound with a bandage. She should increase activity as tolerated, and if she feels dizzy or lightheaded should sit or lie down. Departure - Departure Time of Disposition: 10:43 Disposition: Home, Self-Care 01 Condition: Good Clinical Impression: Syncope, near - Discharge Information Instructions: Near-Syncope, [id number] Referrals: Abdifatah Aguirre MD [Primary Care Provider] - Forms: ED Department Discharge Care Plan Goals: Keep your hand wound covered and clean while healing. Activity as tolerated, and sit down or rest if you feel lightheaded. Recheck in 2-3 days if not feeling better.
== END 2019-02-15 10:43 | disposition home or self-care (01) ==
LOC: JP.ED 09:18
DX: R55 Syncope and collapse (principal); I10 Essential (primary) hypertension; K21.9 Gastro-esophageal reflux disease without esophagitis; F32.9 Major depressive disorder, single episode, unspecified; Z79.899 Other long term (current) drug therapy; Z88.1 Allergy status to other antibiotic agents; Z88.0 Allergy status to penicillin
CPT/HCPCS: 99282; 99283

== ENCOUNTER 2019-02-21 18:59 | Emergency (ER) | payer MEDICARE, MEDICAID ==
[2019-02-21 19:47] VITALS: BP 120/70
[2019-02-21] MEDS ORDERED: Ketorolac 60 MG/2 ML SDV IM ONE (20:05)
--- NOTE | 2019-02-21 20:09 | EDM.PDOC ---
ED HPI GENERAL MEDICAL PROBLEM - General Chief Complaint: Abdominal Pain Stated Complaint: ABD PAIN BLEEDING Time Seen by Provider: 02/21/19 19:59 Source of Information: Reports: Patient, Family, RN Notes Reviewed History Limitations: Reports: No Limitations - History of Present Illness INITIAL COMMENTS - FREE TEXT/NARRATIVE: 38-year-old female presents emergency department day complaint of vaginal bleeding, she recently hasn't her wellness exam a couple weeks ago at which time she was stopped her oral control medication and was placed on nexplanon since implantation of this medication she has had vaginal bleeding initially started on heavy but 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 she only notices blood when she wipes with tissue paper she has had vaginal bleeding now for 15 days, denies any other symptoms lower abd Pain Score (Numeric/FACES): 9 - Related Data Allergies Allergy/AdvReac Type Severity Reaction Status Date / Time amoxicillin Allergy Hives Verified 02/21/19 19:35 Penicillins Allergy Hives Verified 02/21/19 19:35 Home Meds: Home Meds Gabapentin [Neurontin] 300 mg PO BEDTIME 11/06/16 [History] Lurasidone HCl [Latuda] 40 mg PO DAILY 11/06/16 [History] Omeprazole 20 mg PO DAILY 11/06/16 [History] Polyethylene Glycol 3350 1,000 gm MC ASDIRECTED PRN 11/06/16 [History] Sertraline [Zoloft] 150 mg PO BEDTIME 11/06/16 [History] buPROPion [Wellbutrin XL] 150 mg PO DAILY 11/06/16 [History] Metoprolol Succinate 25 mg PO DAILY 07/15/18 [History] Prazosin [Minpress] 5 mg PO BEDTIME 07/15/18 [History] Zolpidem Tartrate [Ambien] 10 mg PO BEDTIME 07/15/18 [History] clonazePAM [Klonopin] 1 mg PO BID 07/15/18 [History] Albuterol [Ventolin HFA] 2 puff INH Q4H PRN 07/27/18 [History] Naproxen 500 mg PO BID 09/07/18 [History] OLANZapine [ZyPREXA] 1 tab PO DAILY PRN 02/14/19 [History] Acyclovir [Zovirax 5% Oint] 1 applic TOP Q3H PRN 02/21/19 [History] Ammonium Lactate 1 applic TOP BID 02/21/19 [History] Docusate Sodium [Colace] 100 mg PO BID 02/21/19 [History] Etonogestrel [Nexplanon] 68 mg SQ Q36M 02/21/19 [History] Ibuprofen [Motrin] 600 mg PO TID PRN #30 tab 02/21/19 [Rx] Sennosides [Senna] 1 tab PO BEDTIME 02/21/19 [History] Triamcinolone Acetonide [Kenalog 0.1% Crm] 1 applic TOP BID PRN 02/21/19 [ History] Past Medical History HEENT History: Reports: Impaired Vision Cardiovascular History: Reports: Hypertension Respiratory History: Reports: Asthma Gastrointestinal History: Reports: GERD Neurological History: Reports: Migraines Psychiatric History: Reports: Anxiety, Depression, Hallucinations (Visual and auditory), Psych Hospitalization(s), Suicidal Ideation, Other (See Below) Endocrine/Metabolic History: Reports: Obesity/BMI 30+ - Infectious Disease History Infectious Disease History: Reports: Chicken Pox - Past Surgical History Head Surgeries/Procedures: Reports: None HEENT Surgical History: Reports: None Cardiovascular Surgical History: Reports: None GI Surgical History: Reports: Cholecystectomy, Colonoscopy Endocrine Surgical History: Reports: None Social & Family History - Family History Family Medical History: Noncontributory - Tobacco Use Smoking Status *Q: Never Smoker - Caffeine Use Caffeine Use: Reports: Tea - Recreational Drug Use Recreational Drug Use: No - Living Situation & Occupation Living situation: Reports: with Significant Other Occupation: Disabled (lives with Boyfriend in [place], [place].) ED ROS GENERAL - Review of Systems Review Of Systems: See Below Constitutional: Reports: No Symptoms Respiratory: Reports: No Symptoms Cardiovascular: Reports: No Symptoms : Reports: Irregular Menses ED EXAM, RENAL/ - Physical Exam Exam: See Below Exam Limited By: No Limitations General Appearance: Alert, WD/WN, No Apparent Distress Respiratory/Chest: No Respiratory Distress, Lungs Clear, Normal Breath Sounds, No Accessory Muscle Use, Chest Non-Tender Cardiovascular: Regular Rate, Rhythm, No Murmur GI/Abdominal: Soft, Non-Tender Course - Vital Signs Last Recorded V/S: Last Vital Signs Temp 97.1 F 02/21/19 19:44 Pulse 82 02/21/19 19:44 Resp 15 02/21/19 19:44 BP 120/70 02/21/19 19:44 Pulse Ox 98 02/21/19 19:44 - Orders/Labs/Meds Orders: Active Orders 24 hr Category Date Time Status CULTURE URINE [RM] Urgent Lab 02/21/19 20:46 Ordered Labs: Laboratory Tests 02/21/19 02/21/19 Range/Units 20:10 20:15 Hgb 13.6 (12.0-15.0) g/dL Urine Color Yellow Urine Appearance Slightly cloudy Urine pH 6.0 (4.5-8.0) Ur Specific [place] 1.015 (1.008-1.030) Urine Protein Negative (NEGATIVE) mg/dL Urine Glucose (UA) Normal (NEGATIVE) mg/dL Urine Ketones Negative (NEGATIVE) mg/dL Urine Occult Blood Large (NEGATIVE) Urine Nitrite Negative (NEGATIVE) Urine Bilirubin Negative (NEGATIVE) Urine Urobilinogen Normal (NORMAL) mg/dL Ur Leukocyte Esterase Small (NEGATIVE) Urine RBC 75-100 H (0-5) Urine WBC 5-10 H (0-5) Ur Epithelial Cells Few Amorphous Sediment Not seen Urine Bacteria Few Urine Mucus Not seen Meds: Medications Discontinued Medications Generic Name Dose Route Start Last Admin Trade Name Freq PRN Reason Stop Dose Admin Ketorolac Tromethamine 60 mg 02/21/19 20:05 02/21/19 20:14 Toradol IM 02/21/19 20:06 60 mg ONETIME ONE Administration Departure - Departure Time of Disposition: 20:55 Disposition: Home, Self-Care 01 Condition: Fair Clinical Impression: Vaginal bleeding - Discharge Information Referrals: Abdifatah Aguirre MD [Primary Care Provider] - Forms: ED Department Discharge Additional Instructions: Try the Motrin as needed for abdominal cramping, stopped her naproxen while using the Motrin, Please followup with your primary care provider in 7-10 days if not better, please call return to the emergency department with worsening of symptoms. - My Orders Last 24 Hours: My Active Orders 02/21/19 20:46 CULTURE URINE [RM] Urgent - Assessment/Plan Last 24 Hours: My Active Orders 02/21/19 20:46 CULTURE URINE [RM] Urgent Plan: Assessment Acuity = acute Site and laterality = vaginal bleeding Etiology = probable side effect from the Nexplanon Manifestations = none Location of injury = Home Lab values = hemoglobin 13.6, urinalysis does show large amount of blood 75-100 rbc's consistent hematuria few bacteria cultures pending Plan I did review lab work with her she would like to try watchful waiting for the next couple weeks to see if the vaginal bleeding does slow down she is going to try Motrin as needed for abdominal cramping follow-up primary care 7-10 days if no improvement This note was dictated using [employer] voice recognition software please call with any questions on syntax or grammar.
== END 2019-02-21 21:00 | disposition home or self-care (01) ==
LOC: JP.ED 18:59
DX: N93.9 Abnormal uterine and vaginal bleeding, unspecified (principal); I10 Essential (primary) hypertension; E66.9 Obesity, unspecified; F32.9 Major depressive disorder, single episode, unspecified; F41.9 Anxiety disorder, unspecified; Z79.899 Other long term (current) drug therapy; Z88.1 Allergy status to other antibiotic agents; Z88.0 Allergy status to penicillin; Z68.44 Body mass index [BMI] 60.0-69.9, adult
CPT/HCPCS: 36415; 81001; 85018; 87086; 96372; 99284; J1885

== ENCOUNTER 2019-03-03 19:32 | Emergency (ER) | payer MEDICARE, MEDICAID ==
[2019-03-03 19:39] VITALS: BP 134/74
--- NOTE | 2019-03-03 20:54 | EDM.PDOC ---
ED HPI GENERAL MEDICAL PROBLEM - General Chief Complaint: Cardiovascular Problem Stated Complaint: CHEST HURTS,RIGHT SIDE ARM,LEG NUMBNESS Time Seen by Provider: 03/03/19 19:50 Source of Information: Reports: Patient, Family History Limitations: Reports: No Limitations - History of Present Illness INITIAL COMMENTS - FREE TEXT/NARRATIVE: 38-year-old female arrives to the emergency room with a variety of nonspecific complaints. She has intermittent chest pressure, numbness in her extremities that tends to migrate, a red rash under her left breast, her voices are talking to her, she feels stressed out and fatigued a lot. She is also worried that the cut on her hand is not healing well. She is well-known to the emergency department and is seen very frequently. She has a very strong psychosomatic overlay. Onset: Unknown/Unsure Associated Symptoms: Reports: Chest Pain, Cough, Weakness. Denies: Confusion, Nausea/Vomiting Left Chest Pain Score (Numeric/FACES): 7 - Related Data Allergies Allergy/AdvReac Type Severity Reaction Status Date / Time amoxicillin Allergy Hives Verified 03/03/19 19:39 Penicillins Allergy Hives Verified 03/03/19 19:39 Home Meds: Home Meds Gabapentin [Neurontin] 300 mg PO BEDTIME 11/06/16 [History] Lurasidone HCl [Latuda] 40 mg PO DAILY 11/06/16 [History] Omeprazole 20 mg PO DAILY 11/06/16 [History] Polyethylene Glycol 3350 1,000 gm ASDIRECTED PRN 11/06/16 [History] Sertraline [Zoloft] 150 mg PO BEDTIME 11/06/16 [History] buPROPion [Wellbutrin XL] 150 mg PO DAILY 11/06/16 [History] Metoprolol Succinate 25 mg PO DAILY 07/15/18 [History] Prazosin [Minpress] 5 mg PO BEDTIME 07/15/18 [History] Zolpidem Tartrate [Ambien] 10 mg PO BEDTIME 07/15/18 [History] clonazePAM [Klonopin] 1 mg PO BID 07/15/18 [History] Albuterol [Ventolin HFA] 2 puff INH Q4H PRN 07/27/18 [History] Naproxen 500 mg PO BID 09/07/18 [History] OLANZapine [ZyPREXA] 1 tab PO DAILY PRN 02/14/19 [History] Acyclovir [Zovirax 5% Oint] 1 applic TOP Q3H PRN 02/21/19 [History] Ammonium Lactate 1 applic TOP BID 02/21/19 [History] Docusate Sodium [Colace] 100 mg PO BID 02/21/19 [History] Etonogestrel [Nexplanon] 68 mg SQ Q36M 02/21/19 [History] Ibuprofen [Motrin] 600 mg PO TID PRN #30 tab 02/21/19 [Rx] Sennosides [Senna] 1 tab PO BEDTIME 02/21/19 [History] Triamcinolone Acetonide [Kenalog 0.1% Crm] 1 applic TOP BID PRN 02/21/19 [ History] Past Medical History HEENT History: Reports: Impaired Vision Cardiovascular History: Reports: Hypertension Respiratory History: Reports: Asthma, SOB Gastrointestinal History: Reports: GERD Neurological History: Reports: Migraines Psychiatric History: Reports: Anxiety, Depression, Hallucinations, Psych Hospitalization(s), Suicidal Ideation, Other (See Below) Other Psychiatric History: SEEING THINGS AND HEARING THINGS Endocrine/Metabolic History: Reports: Obesity/BMI 30+ - Infectious Disease History Infectious Disease History: Reports: Chicken Pox - Past Surgical History Head Surgeries/Procedures: Reports: None HEENT Surgical History: Reports: None Cardiovascular Surgical History: Reports: None Respiratory Surgical History: Reports: None GI Surgical History: Reports: Cholecystectomy, Colonoscopy Endocrine Surgical History: Reports: None Neurological Surgical History: Reports: None Dermatological Surgical History: Reports: None Social & Family History - Family History Family Medical History: Noncontributory - Tobacco Use Smoking Status *Q: Former Smoker Used Tobacco, but Quit: Yes Month/Year Tobacco Last Used: 2017 Second Hand Smoke Exposure: No - Caffeine Use Caffeine Use: Reports: Tea - Recreational Drug Use Recreational Drug Use: No - Living Situation & Occupation Living situation: Reports: with Significant Other Occupation: Disabled (lives with Boyfriend in [place], [place].) ED ROS GENERAL - Review of Systems Review Of Systems: See Below Constitutional: Denies: Fever, Chills, Decreased Appetite HEENT: Reports: Other (Disconjugate gaze, chronic) Respiratory: Reports: Shortness of Breath, Cough Cardiovascular: Reports: Chest Pain (Intermittent pressure) GI/Abdominal: Denies: Abdominal Pain, Nausea : Reports: No Symptoms Skin: Reports: Other (Rash under the left breast) Neurological: Reports: Dizziness, Paresthesia (Intermittent paresthesias of the left arm and leg). Denies: Headache Psychiatric: Reports: Anxiety, Hallucinations (Frequent auditory hallucinations , chronic). Denies: Homicidal Ideation ED EXAM, GENERAL - Physical Exam Exam: See Below Exam Limited By: Uncooperative General Appearance: No Apparent Distress Eye Exam: Right Eye: Other (Disconjugate gaze, normal baseline exam) Respiratory/Chest: No Respiratory Distress, Lungs Clear Cardiovascular: Regular Rate, Rhythm. No: Extra Beats GI/Abdominal: Soft, Other (Morbid obesity) Neurological: Alert, Oriented Psychiatric: Normal Affect, Normal Mood. No: Depressed Mood, Flat Affect, Tearful Skin Exam: Warm, Dry, Other (Erythema under the left breast) Course - Vital Signs Last Recorded V/S: Last Vital Signs Temp 98.6 F 03/03/19 19:43 Pulse 83 03/03/19 19:49 Resp 18 03/03/19 19:49 BP 134/74 03/03/19 19:43 Pulse Ox 99 03/03/19 19:49 - Orders/Labs/Meds Labs: Laboratory Tests 03/03/19 03/03/19 Range/Units 20:16 20:16 WBC 9.8 (4.5-11.0) K/uL RBC 4.98 (3.30-5.50) M/uL Hgb 13.4 (12.0-15.0) g/dL Hct 43.9 (36.0-48.0) % MCV 88 (80-98) fL MCH 27 (27-31) pg MCHC 31 L (32-36) % Plt Count 310 (150-400) K/uL Neut % (Auto) 66 (36-66) % Lymph % (Auto) 23 L (24-44) % Otero % (Auto) 9 H (2-6) % Eos % (Auto) 2 (2-4) % Baso % (Auto) 0 (0-1) % Sodium 139 L (140-148) mmol/L Potassium 4.5 (3.6-5.2) mmol/L Chloride 103 (100-108) mmol/L Carbon Dioxide 30 (21-32) mmol/L Anion Gap 10.5 (5.0-14.0) mmol/L BUN 11 (7-18) mg/dL Creatinine 0.8 (0.6-1.0) mg/dL Est Cr Clr Drug Dosing 80.42 mL/min Estimated GFR (MDRD) > 60 (>60) Glucose 97 (74-106) mg/dL Calcium 9.6 (8.5-10.1) mg/dL TSH, Ultra Sensitive 1.007 (0.358-3.740) uIU/mL - Re-Assessments/Exams Free Text/Narrative Re-Assessment/Exam: 03/03/19 20:53 Patient was placed on a monitor, vitals were normal and she was in a normal sinus rhythm. She was kept on the monitor while a CBC BMP and TSH were obtained. 03/03/19 21:07 All labs are normal including her TSH. Patient was reassured, and it was recommended she try Lotrimin cream under her breast as directed for 1-2 weeks and recheck with her primary provider for follow-up. Departure - Departure Time of Disposition: 21:16 Disposition: Home, Self-Care 01 Condition: Good Clinical Impression: Atypical chest pain, Anxiety about health, Yeast dermatitis Instructions: Nonspecific Chest Pain, [id number] Referrals: Abdifatah Aguirre MD [Primary Care Provider] - Forms: ED Department Discharge Care Plan Goals: Try topical Lotrimin cream for 1-2 weeks and attempt to keep the rash area as dry as possible. Recheck with Dr. Aguirre in 10-14 days if not improving satisfactorily. No other medication changes are recommended. Consider also talking to Dr. Aguirre about your fatigue and a possible sleep study.
== END 2019-03-03 21:16 | disposition home or self-care (01) ==
LOC: JP.ED 19:32
DX: F41.9 Anxiety disorder, unspecified (principal); R07.89 Other chest pain; B37.2 Candidiasis of skin and nail; Z87.891 Personal history of nicotine dependence; I10 Essential (primary) hypertension; F32.9 Major depressive disorder, single episode, unspecified; Z79.899 Other long term (current) drug therapy; Z88.1 Allergy status to other antibiotic agents; Z88.0 Allergy status to penicillin
CPT/HCPCS: 36415; 80048; 84443; 85025; 99284

== ENCOUNTER 2019-05-13 13:25 | Emergency (ER) | payer MEDICARE, MEDICAID ==
[2019-05-13 14:09] VITALS: BP 180/60; PULSE 90
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
== END 2019-05-13 14:42 | disposition home or self-care (01) ==
LOC: JP.ED 13:25
DX: F41.9 Anxiety disorder, unspecified (principal); F32.9 Major depressive disorder, single episode, unspecified; I10 Essential (primary) hypertension; J45.909 Unspecified asthma, uncomplicated; Z79.899 Other long term (current) drug therapy; Z88.1 Allergy status to other antibiotic agents; Z88.0 Allergy status to penicillin
CPT/HCPCS: 99282; 99283

== ENCOUNTER 2019-07-30 12:33 | Emergency (ER) | payer MEDICARE, MEDICAID ==
[2019-07-30 16:14] VITALS: BP 128/82; PULSE 89
--- NOTE | 2019-07-30 16:33 | EDM.PDOC ---
ED HPI GENERAL MEDICAL PROBLEM - General Chief Complaint: Cardiovascular Problem Stated Complaint: BLOOD PRESSURE IS HIGH Time Seen by Provider: 07/30/19 16:20 Source of Information: Reports: Patient History Limitations: Reports: No Limitations - History of Present Illness INITIAL COMMENTS - FREE TEXT/NARRATIVE: Leelee verduzco 38 yo female presents to ER with significant other due to elevated blood pressure reading while at mental health clinic today. Patient had her BP taken before her mental health appointment SBP 132. Mental health provider was concerned regarding her blood pressure and recheck SBP 170. Patient remained stable during entire Er visit. Patient's blood pressure was recheck multiple time during ER visit without concerning results. Patient has not symptoms of end organ damage: no chest pain, SOB, headache with normal appetite and urine output. Patient has slight left knee pain which is not new worsen or different without fall or new injury. Right posterior knee yeast infection which she was prescribed cream from Urgent Care with slightly improving over the course of the last week. - Related Data Allergies Allergy/AdvReac Type Severity Reaction Status Date / Time amoxicillin Allergy Hives Verified 05/13/19 14:02 Penicillins Allergy Hives Verified 05/13/19 14:02 Home Meds: Home Meds Gabapentin [Neurontin] 300 mg PO BEDTIME 11/06/16 [History] Lurasidone HCl [Latuda] 40 mg PO DAILY 11/06/16 [History] Omeprazole 20 mg PO DAILY 11/06/16 [History] Sertraline [Zoloft] 150 mg PO BEDTIME 11/06/16 [History] buPROPion [Wellbutrin XL] 150 mg PO DAILY 11/06/16 [History] Metoprolol Succinate 25 mg PO DAILY 07/15/18 [History] Prazosin [Minpress] 5 mg PO BEDTIME 07/15/18 [History] Zolpidem Tartrate [Ambien] 10 mg PO BEDTIME 07/15/18 [History] clonazePAM [Klonopin] 1 mg PO BID 07/15/18 [History] Albuterol [Ventolin HFA] 2 puff INH Q4H PRN 07/27/18 [History] Naproxen 500 mg PO BID 09/07/18 [History] OLANZapine [ZyPREXA] 1 tab PO DAILY PRN 02/14/19 [History] Acyclovir [Zovirax 5% Oint] 1 applic TOP Q3H PRN 02/21/19 [History] Ammonium Lactate 1 applic TOP BID 02/21/19 [History] Etonogestrel [Nexplanon] 68 mg SQ Q36M 02/21/19 [History] Ibuprofen [Motrin] 600 mg PO TID PRN #30 tab 02/21/19 [Rx] Triamcinolone Acetonide [Kenalog 0.1% Crm] 1 applic TOP BID PRN 02/21/19 [ History] Sennosides/Docusate Sodium [Stool Softener-Laxative] 2 tab PO BID PRN 05/13/19 [ History] Past Medical History HEENT History: Reports: Impaired Vision Cardiovascular History: Reports: Hypertension Respiratory History: Reports: Asthma, SOB Gastrointestinal History: Reports: GERD Neurological History: Reports: Migraines Psychiatric History: Reports: Anxiety, Depression, Hallucinations, Psych Hospitalization(s), Schizophrenia, Suicidal Ideation, Other (See Below) Other Psychiatric History: SEEING THINGS AND HEARING THINGS Endocrine/Metabolic History: Reports: Obesity/BMI 30+ - Infectious Disease History Infectious Disease History: Reports: Chicken Pox - Past Surgical History Head Surgeries/Procedures: Reports: None GI Surgical History: Reports: Cholecystectomy, Colonoscopy Dermatological Surgical History: Reports: None Social & Family History - Family History Family Medical History: Noncontributory - Tobacco Use Smoking Status *Q: Former Smoker Used Tobacco, but Quit: Yes Month/Year Tobacco Last Used: 4 years - Caffeine Use Caffeine Use: Reports: None, Tea - Recreational Drug Use Recreational Drug Use: No - Living Situation & Occupation Living situation: Reports: with Significant Other Occupation: Disabled (lives with Boyfriend in [place], [place].) ED ROS GENERAL - Review of Systems Review Of Systems: ROS reveals no pertinent complaints other than HPI. ED EXAM, GENERAL - Physical Exam Exam: See Below Exam Limited By: No Limitations General Appearance: Alert, WD/WN, No Apparent Distress Eye Exam: Bilateral Eye: EOMI, PERRL Ears: Normal External Exam, Normal Canal Nose: Normal Inspection, Normal Mucosa Throat/Mouth: Normal Inspection, Normal Lips, Normal Teeth, Normal Gums, Normal Oropharynx, Normal Voice, No Airway Compromise Head: Atraumatic, Normocephalic Neck: Normal Inspection, Supple, Non-Tender, Full Range of Motion Respiratory/Chest: No Respiratory Distress, Lungs Clear, Normal Breath Sounds, No Accessory Muscle Use, Chest Non-Tender Cardiovascular: Normal Peripheral Pulses, Regular Rate, Rhythm, No Edema GI/Abdominal: Normal Bowel Sounds, Soft, Non-Tender, No Organomegaly, Other ( very limited due to body habitus) Back Exam: Normal Inspection, Full Range of Motion, NT Extremities: Normal Inspection, Normal Range of Motion, Non-Tender, Normal Capillary Refill, No Pedal Edema Neurological: Alert, Oriented, CN II-XII Intact, Normal Cognition, Normal Gait, Normal Reflexes, No Motor/Sensory Deficits Psychiatric: Normal Affect, Normal Mood Skin Exam: Warm, Dry, Intact, Normal Color, No Rash Course - Vital Signs Last Recorded V/S: Last Vital Signs Temp 37.2 C 07/30/19 15:34 Pulse 89 07/30/19 16:13 Resp 16 07/30/19 16:13 BP 128/82 07/30/19 16:13 Pulse Ox 97 07/30/19 16:13 Departure - Departure Time of Disposition: 16:33 Disposition: Home, Self-Care 01 Clinical Impression: Elevated blood pressure reading, Knee pain, bilateral Instructions: Knee Pain, Adult, How to Take Your Blood Pressure, Preventing Hypertension, Skin Yeast Infection, Managing Your Hypertension Referrals: Abdifatah Aguirre MD [Primary Care Provider] - (Go to appointment on August 03 as planned to discuss left knee pain, posterior right knee yeast infection and blood pressure management ) Forms: ED Department Discharge Additional Instructions: 1. Continue Blood pressure medications as prescribed. 2. Tylenol 500-1000mg every 6-8 hours for bilateral knee pain due to arthritis. 3. Take your blood pressure and pulse at the local pharmacy every 2 days. 4. Take Blood pressure and pulse reading to Dr Aguirre to review to discuss blood pressure medication management. 5. Go to you appointment next week as scheduled. 6. Return to ER if severe headache, chest pain, difficulty speaking or new significant concerns over the weekend. - Problem List & Annotations (1) Knee pain, left SNOMED Code(s): 19805388 Code(s): M25.562 - PAIN IN LEFT KNEE Status: Acute Current Visit: Yes (2) Elevated blood pressure reading SNOMED Code(s): 71955298 Code(s): R03.0 - ELEVATED BLOOD-PRESSURE READING, W/O DIAGNOSIS OF HTN Status: Acute Current Visit: Yes (3) Yeast dermatitis SNOMED Code(s): 47109500 Code(s): B37.2 - CANDIDIASIS OF SKIN AND NAIL Status: Acute Current Visit : Yes
== END 2019-07-30 16:53 | disposition home or self-care (01) ==
LOC: JP.ED 12:33
DX: I10 Essential (primary) hypertension (principal); M25.562 Pain in left knee; M25.561 Pain in right knee; K21.9 Gastro-esophageal reflux disease without esophagitis; F41.9 Anxiety disorder, unspecified; F32.9 Major depressive disorder, single episode, unspecified; E66.9 Obesity, unspecified; J45.909 Unspecified asthma, uncomplicated; F20.9 Schizophrenia, unspecified; Z87.891 Personal history of nicotine dependence; Z88.0 Allergy status to penicillin; Z88.1 Allergy status to other antibiotic agents; Z79.899 Other long term (current) drug therapy
CPT/HCPCS: 99282; 99283

== ENCOUNTER 2020-01-08 13:43 | Emergency (ER) | payer MEDICARE, MEDICAID ==
[2020-01-08 14:33] VITALS: BP 187/87; PULSE 106
--- NOTE | 2020-01-08 15:25 | EDM.PDOC ---
ED HPI GENERAL MEDICAL PROBLEM - General Chief Complaint: Skin Complaint Stated Complaint: LOWER LT LEG OOZING Time Seen by Provider: 01/08/20 15:17 Source of Information: Reports: Patient History Limitations: Reports: No Limitations - History of Present Illness INITIAL COMMENTS - FREE TEXT/NARRATIVE: Patient presents describing leaking fluid from her left leg. She thinks she scratched the leg earlier today and then fluid began to ooze from the inside. She presented for further evaluation. The left leg does not have any similar oozing. Onset: Today Location: Reports: Lower Extremity, Left Severity: Mild Improves with: Reports: None Worsens with: Reports: None Left Lower Leg Pain Score (Numeric/FACES): 6 - Related Data Allergies Allergy/AdvReac Type Severity Reaction Status Date / Time amoxicillin Allergy Hives Verified 01/08/20 14:36 Penicillins Allergy Hives Verified 01/08/20 14:36 Home Meds: Home Meds Gabapentin [Neurontin] 300 mg PO BEDTIME 11/06/16 [History] Lurasidone HCl [Latuda] 40 mg PO DAILY 11/06/16 [History] Omeprazole 20 mg PO DAILY 11/06/16 [History] Sertraline [Zoloft] 150 mg PO BEDTIME 11/06/16 [History] buPROPion [Wellbutrin XL] 150 mg PO DAILY 11/06/16 [History] Metoprolol Succinate 25 mg PO DAILY 07/15/18 [History] Prazosin [Minpress] 5 mg PO BEDTIME 07/15/18 [History] Zolpidem Tartrate [Ambien] 10 mg PO BEDTIME 07/15/18 [History] clonazePAM [Klonopin] 1 mg PO BID 07/15/18 [History] Albuterol [Ventolin HFA] 2 puff INH Q4H PRN 07/27/18 [History] Naproxen 500 mg PO BID 09/07/18 [History] OLANZapine [ZyPREXA] 1 tab PO DAILY PRN 02/14/19 [History] Acyclovir [Zovirax 5% Oint] 1 applic TOP Q3H PRN 02/21/19 [History] Ammonium Lactate 1 applic TOP BID 02/21/19 [History] Etonogestrel [Nexplanon] 68 mg SQ Q36M 02/21/19 [History] Ibuprofen [Motrin] 600 mg PO TID PRN #30 tab 02/21/19 [Rx] Triamcinolone Acetonide [Kenalog 0.1% Crm] 1 applic TOP BID PRN 02/21/19 [ History] Sennosides/Docusate Sodium [Stool Softener-Laxative] 2 tab PO BID PRN 05/13/19 [ History] Past Medical History HEENT History: Reports: Impaired Vision Cardiovascular History: Reports: Hypertension Respiratory History: Reports: Asthma, SOB Gastrointestinal History: Reports: GERD Neurological History: Reports: Migraines Psychiatric History: Reports: Anxiety, Depression, Hallucinations, Psych Hospitalization(s), Schizophrenia, Suicidal Ideation, Other (See Below) Other Psychiatric History: SEEING THINGS AND HEARING THINGS Endocrine/Metabolic History: Reports: Obesity/BMI 30+ - Infectious Disease History Infectious Disease History: Reports: Chicken Pox - Past Surgical History Head Surgeries/Procedures: Reports: None GI Surgical History: Reports: Cholecystectomy, Colonoscopy Social & Family History - Family History Family Medical History: Noncontributory - Tobacco Use Smoking Status *Q: Never Smoker - Caffeine Use Caffeine Use: Reports: None, Tea - Recreational Drug Use Recreational Drug Use: No - Living Situation & Occupation Living situation: Reports: with Significant Other Occupation: Disabled (lives with Boyfriend in [place], [place].) ED ROS GENERAL - Review of Systems Review Of Systems: Comprehensive ROS is negative, except as noted in HPI. ED EXAM, SKIN/RASH Exam: See Below Text/Narrative:: She is seated on the bed in room 11. There is clear fluid slowly oozing from the medial distal left leg. Exam Limited By: No Limitations General Appearance: Alert Extremities: Other (There is clear fluid from the medial portion of the left leg. There is substantial fat in both legs but no mottling. Extremities are warm.) Course - Vital Signs Last Recorded V/S: Last Vital Signs Temp 36.2 C 01/08/20 14:35 Pulse 106 H 01/08/20 14:35 Resp 20 01/08/20 14:35 BP 187/87 H 01/08/20 14:35 Pulse Ox 91 L 01/08/20 14:35 - Orders/Labs/Meds Orders: Active Orders 24 hr Category Date Time Status EDOUARD Bandage [Elastic Wrap] [OM.PC] Routine Oth 01/08/20 15:28 Ordered - Re-Assessments/Exams Free Text/Narrative Re-Assessment/Exam: 01/08/20 18:13 She asked if a water pill would help her and I said that it would not. Her problem is mechanical from pressure within the leg. We will apply a Band-Aid and have her use an Edouard bandage to assist with compression of the leg however with a weight over 400 pounds, there is no simple solution to her lower extremity edema/discomfort/transudate fluid discharge. She should recheck with primary care if not improved with this in the next week. Departure - Departure Time of Disposition: 15:29 Disposition: Home, Self-Care 01 Condition: Good Clinical Impression: Roya infection of flexural skin Edema Qualifiers: Edema type: unspecified Qualified Code(s): R60.9 - Edema, unspecified - Discharge Information *PRESCRIPTION DRUG MONITORING PROGRAM REVIEWED*: Not Applicable *COPY OF PRESCRIPTION DRUG MONITORING REPORT IN PATIENT BETZY: Not Applicable Instructions: Edema, [id number] Referrals: Abdifatah Aguirre MD [Primary Care Provider] - Forms: ED Department Discharge Additional Instructions: Apply a Band-Aid daily to the oozing area and then wrap the leg with the Edouard bandage. Elevating the leg will help also but it's possible that the trickle of this clear fluid may continue for some time. For the yeast rash on your chest, I recommend buying one of the athlete's foot creams such as miconazole or clotrimazole and applying a film of the cream to the red areas twice daily for 2 weeks continuously and then reassess. Recheck these conditions with your primary care provider as needed. Sepsis Event Note - Evaluation Sepsis Screening Result: No Definite Risk - Focused Exam Vital Signs: Vital Signs Temp Pulse Resp BP Pulse Ox 01/08/20 14:35 36.2 C 106 H 20 187/87 H 91 L 01/08/20 14:31 36.2 C 106 H 20 187/87 H 91 L Date Exam was Performed: 01/08/20 Time Exam was Performed: 18:09 - My Orders Last 24 Hours: My Active Orders 01/08/20 15:28 EDOUARD Bandage [Elastic Wrap] [OM.PC] Routine - Assessment/Plan Last 24 Hours: My Active Orders 01/08/20 15:28 EDOUARD Bandage [Elastic Wrap] [OM.PC] Routine
== END 2020-01-08 15:57 | disposition home or self-care (01) ==
LOC: JP.ED 13:43
DX: B37.2 Candidiasis of skin and nail (principal); R60.9 Edema, unspecified; I10 Essential (primary) hypertension; J45.909 Unspecified asthma, uncomplicated; K21.9 Gastro-esophageal reflux disease without esophagitis; F41.9 Anxiety disorder, unspecified; F32.9 Major depressive disorder, single episode, unspecified; E66.9 Obesity, unspecified; G43.909 Migraine, unspecified, not intractable, without status migrainosus; Z88.1 Allergy status to other antibiotic agents; Z88.0 Allergy status to penicillin; Z79.899 Other long term (current) drug therapy; Z68.45 Body mass index [BMI] 70 or greater, adult
CPT/HCPCS: 99282; 99283

== ENCOUNTER 2020-04-07 17:14 | Emergency (ER) | payer MEDICARE, MEDICAID ==
[2020-04-07 17:32] VITALS: BP 139/80; PULSE 98
--- NOTE | 2020-04-07 17:43 | EDM.PDOC ---
ED HPI GENERAL MEDICAL PROBLEM - General Chief Complaint: General Stated Complaint: WATER COMING OUT OF LT LEG Time Seen by Provider: 04/07/20 17:30 Source of Information: Reports: Patient History Limitations: Reports: No Limitations - History of Present Illness INITIAL COMMENTS - FREE TEXT/NARRATIVE: Wendi is a 39 year old female, presents to the ED with water leaking from her left leg. Patient has hx of leg weeping before, she is on furosemide daily. Patient denies any fever but there is new light redness today to both of her legs. Patient denies any significant pain or other complaints. Patient has not been wrapping her legs and has not been elevating them. Onset: Today - Related Data Allergies Allergy/AdvReac Type Severity Reaction Status Date / Time amoxicillin Allergy Hives Verified 04/07/20 17:33 Penicillins Allergy Hives Verified 04/07/20 17:33 Home Meds: Home Meds Gabapentin [Neurontin] 300 mg PO BEDTIME 11/06/16 [History] Lurasidone HCl [Latuda] 40 mg PO DAILY 11/06/16 [History] Omeprazole 20 mg PO DAILY 11/06/16 [History] Sertraline [Zoloft] 150 mg PO BEDTIME 11/06/16 [History] buPROPion [Wellbutrin XL] 150 mg PO DAILY 11/06/16 [History] Metoprolol Succinate 25 mg PO DAILY 07/15/18 [History] Prazosin [Minpress] 5 mg PO BEDTIME 07/15/18 [History] Zolpidem Tartrate [Ambien] 10 mg PO BEDTIME 07/15/18 [History] clonazePAM [Klonopin] 1 mg PO BID 07/15/18 [History] Albuterol [Ventolin HFA] 2 puff INH Q4H PRN 07/27/18 [History] Naproxen 500 mg PO BID 09/07/18 [History] OLANZapine [ZyPREXA] 1 tab PO DAILY PRN 02/14/19 [History] Acyclovir [Zovirax 5% Oint] 1 applic TOP Q3H PRN 02/21/19 [History] Ammonium Lactate 1 applic TOP BID 02/21/19 [History] Etonogestrel [Nexplanon] 68 mg SQ Q36M 02/21/19 [History] Ibuprofen [Motrin] 600 mg PO TID PRN #30 tab 02/21/19 [Rx] Triamcinolone Acetonide [Kenalog 0.1% Crm] 1 applic TOP BID PRN 02/21/19 [ History] Sennosides/Docusate Sodium [Stool Softener-Laxative] 2 tab PO BID PRN 05/13/19 [ History] cephALEXin [Keflex] 500 mg PO QID 10 Days #40 capsule 04/07/20 [Rx] Past Medical History HEENT History: Reports: Impaired Vision Cardiovascular History: Reports: Hypertension Respiratory History: Reports: Asthma, SOB Gastrointestinal History: Reports: GERD Neurological History: Reports: Migraines Psychiatric History: Reports: Anxiety, Depression, Hallucinations, Psych Hospitalization(s), Schizophrenia, Suicidal Ideation, Other (See Below) Other Psychiatric History: SEEING THINGS AND HEARING THINGS Endocrine/Metabolic History: Reports: Obesity/BMI 30+ - Infectious Disease History Infectious Disease History: Reports: Chicken Pox - Past Surgical History Head Surgeries/Procedures: Reports: None GI Surgical History: Reports: Cholecystectomy, Colonoscopy Social & Family History - Family History Family Medical History: Noncontributory - Caffeine Use Caffeine Use: Reports: None, Tea - Living Situation & Occupation Living situation: Reports: with Significant Other Occupation: Disabled (lives with Boyfriend in [place], [place].) ED ROS GENERAL - Review of Systems Review Of Systems: Comprehensive ROS is negative, except as noted in HPI. ED EXAM, GENERAL - Physical Exam Exam: See Below Exam Limited By: No Limitations General Appearance: Alert, Obese Throat/Mouth: Normal Inspection Head: Atraumatic Neck: Normal Inspection Respiratory/Chest: No Respiratory Distress, Lungs Clear Cardiovascular: Normal Peripheral Pulses, Regular Rate, Rhythm Back Exam: Normal Inspection Neurological: Alert, Oriented Psychiatric: Normal Affect, Normal Mood Skin Exam: Warm, Erythema (anterior bilateral lower legs, left greater than right, mildly warm to touch, clear fluid weeping from left mid pritchard) Lymphatic: No Adenopathy Course - Vital Signs Last Recorded V/S: Last Vital Signs Temp 37.2 C 04/07/20 17:39 Pulse 98 04/07/20 17:39 Resp 18 04/07/20 17:39 BP 139/80 04/07/20 17:39 Pulse Ox 94 L 04/07/20 17:39 Left leg weeping with bilateral early cellulitis in otherwise well hydrated, non toxic appearing, afebrile, morbidly obese female. Wound care discussed, legs wrapped with ELY wrap for compression. Patient instructed to continue with compression and elevation encouraged. Will start patient on Keflex for her cellulitis. Tylenol as needed. Follow up with PCP on Friday. Return here with any worsening symptoms/new concerns. patient agreeable to plan of care and discharged in stable condition. Departure - Departure Time of Disposition: 18:00 Disposition: Home, Self-Care 01 Condition: Good Clinical Impression: Cellulitis Qualifiers: Site of cellulitis: extremity Site of cellulitis of extremity: upper extremity Laterality: unspecified laterality Qualified Code(s): L03.119 - Cellulitis of unspecified part of limb - Discharge Information Prescriptions: cephALEXin [Keflex] 500 mg PO QID 10 Days #40 capsule Instructions: Cellulitis, Adult Referrals: Abdifatah Aguirre MD [Primary Care Provider] - Forms: ED Department Discharge Additional Instructions: Start Keflex tonight. Keep ELY wrap on as much as possible for compression. Keep legs elevated. follow up with PCP on friday Sepsis Event Note (ED) - Focused Exam Vital Signs: Vital Signs Temp Pulse Resp BP Pulse Ox 04/07/20 17:39 37.2 C 98 18 139/80 94 L 04/07/20 17:30 37.2 C 98 18 139/80 94 L
== END 2020-04-07 18:18 | disposition home or self-care (01) ==
LOC: JP.ED 17:14
DX: L03.116 Cellulitis of left lower limb (principal); J45.909 Unspecified asthma, uncomplicated; I10 Essential (primary) hypertension; K21.9 Gastro-esophageal reflux disease without esophagitis; E66.9 Obesity, unspecified; Z68.45 Body mass index [BMI] 70 or greater, adult; Z88.1 Allergy status to other antibiotic agents; Z88.0 Allergy status to penicillin; Z79.899 Other long term (current) drug therapy
CPT/HCPCS: 99283

== ENCOUNTER 2020-08-17 17:58 | Emergency (ER) | payer MEDICARE, MEDICAID ==
--- NOTE | 2020-08-17 18:51 | EDM.PDOC ---
ED HPI GENERAL MEDICAL PROBLEM - General Chief Complaint: General Stated Complaint: [facility] Time Seen by Provider: 08/17/20 18:35 Source of Information: Reports: Patient, EMS, Old Records, RN History Limitations: Reports: No Limitations - History of Present Illness INITIAL COMMENTS - FREE TEXT/NARRATIVE: 39 yo morbidly obese female has a red area to the back of her R leg for a few days with weeping. No fever. Called Dr. Aguirre and was told to come to the ER. Arrives via EMS. Normally lives with her boyfriend, but he is currently in the hospital. Denies a hx of diabetes. Says Dr. Aguirre started her on a "water pill" a couple weeks ago. No appt was scheduled to recheck her electrolytes. Onset: Gradual Onset Date: 08/13/20 Duration: Day(s):, Getting Worse Location: Reports: Lower Extremity, Right Quality: Reports: Dull Severity: Mild Improves with: Reports: None Worsens with: Reports: Other (time) Context: Reports: Other (see HPI) Associated Symptoms: Reports: No Other Symptoms. 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: Other (see below) (none) - Related Data Allergies Allergy/AdvReac Type Severity Reaction Status Date / Time amoxicillin Allergy Hives Verified 04/07/20 17:33 Penicillins Allergy Hives Verified 04/07/20 17:33 Home Meds: Home Meds Gabapentin [Neurontin] 300 mg PO BEDTIME 11/06/16 [History] Lurasidone HCl [Latuda] 40 mg PO DAILY 11/06/16 [History] Omeprazole 20 mg PO DAILY 11/06/16 [History] Sertraline [Zoloft] 150 mg PO BEDTIME 11/06/16 [History] buPROPion [Wellbutrin XL] 150 mg PO DAILY 11/06/16 [History] Metoprolol Succinate 25 mg PO DAILY 07/15/18 [History] Prazosin [Minpress] 5 mg PO BEDTIME 07/15/18 [History] Zolpidem Tartrate [Ambien] 10 mg PO BEDTIME 07/15/18 [History] clonazePAM [Klonopin] 1 mg PO BID 07/15/18 [History] Albuterol [Ventolin HFA] 2 puff INH Q4H PRN 10/01/18 [History] Naproxen 500 mg PO BID 09/07/18 [History] OLANZapine [ZyPREXA] 1 tab PO DAILY PRN 02/14/19 [History] Acyclovir [Zovirax 5% Oint] 1 applic TOP Q3H PRN 02/21/19 [History] Etonogestrel [Nexplanon] 68 mg SQ Q36M 02/21/19 [History] Ibuprofen [Motrin] 600 mg PO TID PRN #30 tab 02/21/19 [Rx] Triamcinolone Acetonide [Kenalog 0.1% Crm] 1 applic TOP BID PRN 02/21/19 [History] Sennosides/Docusate Sodium [Stool Softener-Laxative] 2 tab PO BID PRN 05/13/19 [History] Past Medical History HEENT History: Reports: Impaired Vision Cardiovascular History: Reports: Hypertension Respiratory History: Reports: Asthma, SOB Gastrointestinal History: Reports: GERD Neurological History: Reports: Migraines Psychiatric History: Reports: Anxiety, Depression, Hallucinations, Psych Hospitalization(s), Schizophrenia, Suicidal Ideation, Other (See Below) Other Psychiatric History: SEEING THINGS AND HEARING THINGS Endocrine/Metabolic History: Reports: Obesity/BMI 30+ - Infectious Disease History Infectious Disease History: Reports: Chicken Pox - Past Surgical History Head Surgeries/Procedures: Reports: None GI Surgical History: Reports: Cholecystectomy, Colonoscopy Dermatological Surgical History: Reports: None Social & Family History - Family History Family Medical History: Noncontributory - Tobacco Use Tobacco Use Status *Q: Never Tobacco User - Caffeine Use Caffeine Use: Reports: Coffee, Soda - Recreational Drug Use Recreational Drug Use: No - Living Situation & Occupation Living situation: Reports: with Significant Other Occupation: Disabled (lives with Boyfriend in [place], [place].) ED ROS GENERAL - Review of Systems Review Of Systems: See Below Constitutional: Reports: No Symptoms. Denies: Fever, Chills HEENT: Reports: No Symptoms Respiratory: Reports: No Symptoms Cardiovascular: Reports: No Symptoms GI/Abdominal: Reports: No Symptoms Skin: Reports: Erythema, Wound (back of right leg). Denies: Pruritis Neurological: Reports: No Symptoms ED EXAM, GENERAL - Physical Exam Exam: See Below Exam Limited By: No Limitations General Appearance: Alert, WD/WN, No Apparent Distress, Obese (morbid) Eye Exam: Bilateral Eye: Normal Inspection Ears: Normal External Exam, Normal Canal, Hearing Grossly Normal, Normal TMs Ear Exam: Bilateral Ear: Auricle Normal Nose: Normal Inspection, No Blood Throat/Mouth: Normal Inspection, Normal Lips, Normal Oropharynx, Normal Voice, No Airway Compromise Head: Atraumatic, Normocephalic Neck: Normal Inspection Respiratory/Chest: No Respiratory Distress, Lungs Clear, Normal Breath Sounds, No Accessory Muscle Use, Other (winded with just moving in the bed due to her extreme size) Cardiovascular: Normal Peripheral Pulses, Regular Rate, Rhythm, No Edema Extremities: Pedal Edema (bilaterally, R>L), Increased Warmth (posterior R calf area), Redness (posterior R calf area). No: No Pedal Edema Neurological: Alert, Oriented, CN II-XII Intact, Normal Cognition, No Motor/Sensory Deficits Psychiatric: Normal Affect, Normal Mood Skin Exam: Warm, No Rash, Erythema (posterior R leg below the knee), Increased Warmth (behind the R leg), Wound/Incision (open wound to distal R calf with weeping. There is a non-infection, chronic appearing ulcer to the area behind her R knee. ) Course - Vital Signs Last Recorded V/S: Last Vital Signs Temp 35.7 C L 08/17/20 18:16 Pulse 92 08/17/20 19:01 Resp 28 H 08/17/20 18:16 BP 158/92 H 08/17/20 19:01 Pulse Ox 96 08/17/20 18:16 - Orders/Labs/Meds Labs: Laboratory Tests 08/17/20 08/17/20 08/17/20 Range/Units 18:50 18:50 18:50 WBC 8.9 (4.5-11.0) K/uL RBC 5.32 (3.30-5.50) M/uL Hgb 13.2 (12.0-15.0) g/dL Hct 44.6 (36.0-48.0) % MCV 84 (80-98) fL MCH 25 L (27-31) pg MCHC 30 L (32-36) % Plt Count 376 (150-400) K/uL Sodium 140 (140-148) mmol/L Potassium 3.4 L (3.6-5.2) mmol/L Chloride 100 (100-108) mmol/L Carbon Dioxide 33 H (21-32) mmol/L Anion Gap 10.4 (5.0-14.0) mmol/L BUN 8 (7-18) mg/dL Creatinine 0.9 (0.6-1.0) mg/dL Est Cr Clr Drug Dosing 73.90 mL/min Estimated GFR (MDRD) > 60 (>60) Glucose 94 (74-106) mg/dL Calcium 9.1 (8.5-10.1) mg/dL Magnesium 2.3 (1.8-2.4) mg/dL C-Reactive Protein 4.90 H (0.0-0.3) mg/dL Meds: Medications Discontinued Medications Generic Name Dose Route Start Last Admin Trade Name Freq PRN Reason Stop Dose Admin Ceftriaxone Sodium 1 gm 08/17/20 19:18 08/17/20 19:43 Rocephin IM 08/17/20 19:19 1 gm ONETIME ONE Administration Doxycycline Hyclate 100 mg 08/17/20 19:19 08/17/20 19:41 Vibramycin PO 08/17/20 19:20 100 mg ONETIME ONE Administration Lidocaine HCl Confirm 08/17/20 19:33 08/17/20 19:50 Xylocaine-Mpf 1% Administered 08/17/20 19:34 Not Given Dose 5 ml .ROUTE .STK-MED ONE Lidocaine HCl 5 ml 08/17/20 19:49 08/17/20 19:51 Xylocaine-Mpf 1% INJECT 08/17/20 19:50 2.1 ml ONETIME ONE Administration Potassium Chloride 40 meq 08/17/20 19:18 08/17/20 19:41 Potassium Chloride PO 08/17/20 19:19 40 meq ONETIME ONE Administration Departure - Departure Time of Disposition: 20:10 Disposition: Home, Self-Care 01 Condition: Fair Clinical Impression: Cellulitis of right leg without foot, Morbid obesity - Discharge Information *PRESCRIPTION DRUG MONITORING PROGRAM REVIEWED*: Not Applicable *COPY OF PRESCRIPTION DRUG MONITORING REPORT IN PATIENT BETZY: Not Applicable Referrals: PCP,None [Primary Care Provider] - Forms: ED Department Discharge Additional Instructions: Take cephalexin 500 mg every 6 hrs and doxycycline 100 mg every 12 hrs for your infection. Keep your leg elevated as high as possible to reduce the weeping and improve the resolution of your infection. We are going to try to set up home care visits for you. See your doctor for recheck on Friday. Return to the ER over the weekend if you develop a fever. Wash your leg with soap and water 2-3 times a day. Dry it thoroughly and apply new clean gauze and an ELY wrap. Sepsis Event Note (ED) - Evaluation Sepsis Screening Result: Possible Sepsis Risk - Focused Exam Vital Signs: Vital Signs Temp Pulse Resp BP Pulse Ox 08/17/20 19:01 92 158/92 H 08/17/20 18:16 35.7 C L 101 H 28 H 171/92 H 96 08/17/20 18:03 35.7 C L 101 H 28 H 171/92 H 96
[2020-08-17 19:02] VITALS: BP 158/92; PULSE 92
[2020-08-17] MEDS ORDERED: Potassium Chloride 10 MEQ Cap.ER PO ONE (19:18)
[2020-08-17] MEDS ORDERED: cefTRIAXone 1 GM Vial IM ONE (19:18)
[2020-08-17] MEDS ORDERED: Doxycycline 100 MG Cap PO ONE (19:19)
== END 2020-08-17 20:30 | disposition home or self-care (01) ==
LOC: JP.ED 17:58
DX: L03.115 Cellulitis of right lower limb (principal); J45.909 Unspecified asthma, uncomplicated; I10 Essential (primary) hypertension; K21.9 Gastro-esophageal reflux disease without esophagitis; F41.9 Anxiety disorder, unspecified; F32.9 Major depressive disorder, single episode, unspecified; Z88.1 Allergy status to other antibiotic agents; E66.9 Obesity, unspecified; Z68.45 Body mass index [BMI] 70 or greater, adult; Z88.0 Allergy status to penicillin
CPT/HCPCS: 36415; 80048; 83735; 85027; 86140; 96372; 99284; A9270; J0696; J2001; 99283

== ENCOUNTER 2021-03-21 14:14 | Observation (INO) | payer MEDICARE, MEDICAID ==
--- NOTE | 2021-03-21 15:22 | EDM.PDOC ---
ED HPI GENERAL MEDICAL PROBLEM - General Chief Complaint: Respiratory Problem Stated Complaint: LOW OXYGEN LEVEL Time Seen by Provider: 03/21/21 15:14 Source of Information: Reports: Patient, Family, RN Notes Reviewed History Limitations: Reports: No Limitations - History of Present Illness INITIAL COMMENTS - FREE TEXT/NARRATIVE: 40-year-old female presents emergency department with a complaint of shortness of breath, she was evaluated by her home health nurse today found to have oxygen saturation in mid 80s on initial evaluation by nursing staff here oxygen saturation was 80%. She states just today she started feeling short of breath no nausea vomiting no chest pain no GI symptomology denies any fever she has not had any Covid vaccine or as far she knows she has not had the Covid itself Bilateral Lower Leg Pain Score (Numeric/FACES): 3 - Related Data Allergies Allergy/AdvReac Type Severity Reaction Status Date / Time amoxicillin Allergy Hives Verified 03/21/21 15:28 Penicillins Allergy Hives Verified 03/21/21 15:28 Home Meds: Home Meds Gabapentin [Neurontin] 300 mg PO BEDTIME 11/06/16 [History] Lurasidone HCl [Latuda] 40 mg PO DAILY 11/06/16 [History] Omeprazole 20 mg PO DAILY 11/06/16 [History] Sertraline [Zoloft] 150 mg PO BEDTIME 11/06/16 [History] buPROPion [buPROPion XL] 150 mg PO DAILY 11/06/16 [History] Metoprolol Succinate 25 mg PO DAILY 07/15/18 [History] Prazosin [Minpress] 5 mg PO BEDTIME 07/15/18 [History] Zolpidem Tartrate [Ambien] 10 mg PO BEDTIME 07/15/18 [History] clonazePAM [Klonopin] 1 mg PO BID 07/15/18 [History] Albuterol [Ventolin HFA] 2 puff INH Q4H PRN 07/27/18 [History] Naproxen 500 mg PO BID PRN 09/07/18 [History] OLANZapine [ZyPREXA] 1 tab PO DAILY PRN 02/14/19 [History] Acyclovir [Zovirax 5% Oint] 1 applic TOP Q3H PRN 02/21/19 [History] Etonogestrel [Nexplanon] 68 mg SQ Q36M 02/21/19 [History] Ibuprofen [Motrin] 600 mg PO TID PRN #30 tab 02/21/19 [Rx] Triamcinolone Acetonide [Kenalog 0.1% Crm] 1 applic TOP BID PRN 02/21/19 [History] Sennosides/Docusate Sodium [Stool Softener-Laxative] 2 tab PO BID PRN 05/13/19 [History] Past Medical History HEENT History: Reports: Impaired Vision Cardiovascular History: Reports: Hypertension Respiratory History: Reports: Asthma, SOB Gastrointestinal History: Reports: GERD Neurological History: Reports: Migraines Psychiatric History: Reports: Anxiety, Depression, Hallucinations, Psych Hospitalization(s), Schizophrenia, Suicidal Ideation, Other (See Below) Other Psychiatric History: SEEING THINGS AND HEARING THINGS Endocrine/Metabolic History: Reports: Obesity/BMI 30+ - Infectious Disease History Infectious Disease History: Reports: Chicken Pox - Past Surgical History Head Surgeries/Procedures: Reports: None GI Surgical History: Reports: Cholecystectomy, Colonoscopy Dermatological Surgical History: Reports: None Social & Family History - Family History Family Medical History: No Pertinent Family History - Caffeine Use Caffeine Use: Reports: Coffee, Soda - Living Situation & Occupation Living situation: Reports: with Significant Other Occupation: Disabled (lives with Boyfriend in [place], [place].) ED ROS GENERAL - Review of Systems Review Of Systems: See Below Constitutional: Denies: Fever, Chills HEENT: Reports: No Symptoms Respiratory: Reports: Shortness of Breath Cardiovascular: Reports: Dyspnea on Exertion GI/Abdominal: Reports: No Symptoms ED EXAM, GENERAL - Physical Exam Exam: See Below Exam Limited By: No Limitations General Appearance: Alert, WD/WN, No Apparent Distress Respiratory/Chest: No Respiratory Distress, Lungs Clear, Normal Breath Sounds, No Accessory Muscle Use, Chest Non-Tender Cardiovascular: Regular Rate, Rhythm, No Murmur GI/Abdominal: Soft, Non-Tender Course - Vital Signs Last Recorded V/S: Last Vital Signs Temp 98.7 F 03/23/21 07:41 Pulse 89 03/23/21 08:39 Resp 16 03/23/21 07:41 BP 138/77 03/23/21 08:39 Pulse Ox 91 L 03/23/21 08:36 - Orders/Labs/Meds Labs: Laboratory Tests 05/26/21 05/26/21 05/26/21 Range/Units 15:19 15:30 15:30 WBC 7.9 (4.5-11.0) K/uL RBC 5.68 H (3.30-5.50) M/uL Hgb 14.6 (12.0-15.0) g/dL Hct 50.5 H (36.0-48.0) % MCV 89 (80-98) fL MCH 26 L (27-31) pg MCHC 29 L (32-36) % Plt Count 282 (150-400) K/uL Neut % (Auto) 70.7 H (36-66) % Lymph % (Auto) 17.4 L (24-44) % Mcculloch % (Auto) 8.3 H (2-6) % Eos % (Auto) 3.3 (2-4) % Baso % (Auto) 0.3 (0-1) % D-Dimer, Quantitative (0.0-500.0) ng/mL Sodium 144 (140-148) mmol/L Potassium 4.4 (3.6-5.2) mmol/L Chloride 99 L (100-108) mmol/L Carbon Dioxide 35 H (21-32) mmol/L Anion Gap 14.4 H (5.0-14.0) mmol/L BUN 14 D (7-18) mg/dL Creatinine 0.9 (0.6-1.0) mg/dL Est Cr Clr Drug Dosing 73.19 mL/min Estimated GFR (MDRD) > 60 (>60) Glucose 83 (74-106) mg/dL Lactic Acid (0.4-2.0) mmol/L Calcium 8.8 (8.5-10.1) mg/dL Total Bilirubin 0.6 (0.2-1.0) mg/dL AST 12 L (15-37) U/L ALT 24 (12-78) U/L Alkaline Phosphatase 106 (46-116) U/L Troponin I (0.000-0.056) ng/mL C-Reactive Protein 4.19 H (0.0-0.3) mg/dL NT-Pro-B Natriuret Pep (5-125) pg/mL Total Protein 7.9 (6.4-8.2) g/dL Albumin 3.1 L (3.4-5.0) g/dL Globulin 4.8 H (2.3-3.5) g/dL Albumin/Globulin Ratio 0.7 L (1.2-2.2) Procalcitonin ng/mL Urine Color (YELLOW) Urine Appearance (CLEAR) Urine pH (5.0-8.0) Ur Specific Rosalie (1.008-1.030) Urine Protein (NEGATIVE) mg/dL Urine Glucose (UA) (NEGATIVE) mg/dL Urine Ketones (NEGATIVE) mg/dL Urine Occult Blood (NEGATIVE) Urine Nitrite (NEGATIVE) Urine Bilirubin (NEGATIVE) Urine Urobilinogen (0.2-1.0) EU/dL Ur Leukocyte Esterase (NEGATIVE) Urine RBC (0-5) Urine WBC (0-5) Ur Epithelial Cells Amorphous Sediment Urine Bacteria Urine Mucus Influenza Type A RNA Negative (NEGATIVE) RSV RNA (INAAT) Negative (NEGATIVE) Influenza Type B RNA Negative (NEGATIVE) SARS-CoV-2 RNA (FADIA) Negative (NEGATIVE) 03/21/21 03/21/21 03/21/21 Range/Units 15:30 15:30 15:30 WBC (4.5-11.0) K/uL RBC (3.30-5.50) M/uL Hgb (12.0-15.0) g/dL Hct (36.0-48.0) % MCV (80-98) fL MCH (27-31) pg MCHC (32-36) % Plt Count (150-400) K/uL Neut % (Auto) (36-66) % Lymph % (Auto) (24-44) % Mcculloch % (Auto) (2-6) % Eos % (Auto) (2-4) % Baso % (Auto) (0-1) % D-Dimer, Quantitative 751.13 H (0.0-500.0) ng/mL Sodium (140-148) mmol/L Potassium (3.6-5.2) mmol/L Chloride (100-108) mmol/L Carbon Dioxide (21-32) mmol/L Anion Gap (5.0-14.0) mmol/L BUN (7-18) mg/dL Creatinine (0.6-1.0) mg/dL Est Cr Clr Drug Dosing mL/min Estimated GFR (MDRD) (>60) Glucose (74-106) mg/dL Lactic Acid 0.8 (0.4-2.0) mmol/L Calcium (8.5-10.1) mg/dL Total Bilirubin (0.2-1.0) mg/dL AST (15-37) U/L ALT (12-78) U/L Alkaline Phosphatase (46-116) U/L Troponin I (0.000-0.056) ng/mL C-Reactive Protein (0.0-0.3) mg/dL NT-Pro-B Natriuret Pep (5-125) pg/mL Total Protein (6.4-8.2) g/dL Albumin (3.4-5.0) g/dL Globulin (2.3-3.5) g/dL Albumin/Globulin Ratio (1.2-2.2) Procalcitonin < 0.05 ng/mL Urine Color (YELLOW) Urine Appearance (CLEAR) Urine pH (5.0-8.0) Ur Specific Rosalie (1.008-1.030) Urine Protein (NEGATIVE) mg/dL Urine Glucose (UA) (NEGATIVE) mg/dL Urine Ketones (NEGATIVE) mg/dL Urine Occult Blood (NEGATIVE) Urine Nitrite (NEGATIVE) Urine Bilirubin (NEGATIVE) Urine Urobilinogen (0.2-1.0) EU/dL Ur Leukocyte Esterase (NEGATIVE) Urine RBC (0-5) Urine WBC (0-5) Ur Epithelial Cells Amorphous Sediment Urine Bacteria Urine Mucus Influenza Type A RNA (NEGATIVE) RSV RNA (INAAT) (NEGATIVE) Influenza Type B RNA (NEGATIVE) SARS-CoV-2 RNA (FADIA) (NEGATIVE) 03/21/21 03/21/21 03/21/21 Range/Units 15:30 15:30 17:00 WBC (4.5-11.0) K/uL RBC (3.30-5.50) M/uL Hgb (12.0-15.0) g/dL Hct (36.0-48.0) % MCV (80-98) fL MCH (27-31) pg MCHC (32-36) % Plt Count (150-400) K/uL Neut % (Auto) (36-66) % Lymph % (Auto) (24-44) % Mcculloch % (Auto) (2-6) % Eos % (Auto) (2-4) % Baso % (Auto) (0-1) % D-Dimer, Quantitative (0.0-500.0) ng/mL Sodium (140-148) mmol/L Potassium (3.6-5.2) mmol/L Chloride (100-108) mmol/L Carbon Dioxide (21-32) mmol/L Anion Gap (5.0-14.0) mmol/L BUN (7-18) mg/dL Creatinine (0.6-1.0) mg/dL Est Cr Clr Drug Dosing mL/min Estimated GFR (MDRD) (>60) Glucose (74-106) mg/dL Lactic Acid (0.4-2.0) mmol/L Calcium (8.5-10.1) mg/dL Total Bilirubin (0.2-1.0) mg/dL AST (15-37) U/L ALT (12-78) U/L Alkaline Phosphatase (46-116) U/L Troponin I < 0.017 (0.000-0.056) ng/mL C-Reactive Protein (0.0-0.3) mg/dL NT-Pro-B Natriuret Pep 113 (5-125) pg/mL Total Protein (6.4-8.2) g/dL Albumin (3.4-5.0) g/dL Globulin (2.3-3.5) g/dL Albumin/Globulin Ratio (1.2-2.2) Procalcitonin ng/mL Urine Color Yellow (YELLOW) Urine Appearance Slightly cloudy A (CLEAR) Urine pH 6.0 (5.0-8.0) Ur Specific Rosalie 1.020 (1.008-1.030) Urine Protein Negative (NEGATIVE) mg/dL Urine Glucose (UA) Negative (NEGATIVE) mg/dL Urine Ketones Negative (NEGATIVE) mg/dL Urine Occult Blood Large H (NEGATIVE) Urine Nitrite Negative (NEGATIVE) Urine Bilirubin Negative (NEGATIVE) Urine Urobilinogen 0.2 (0.2-1.0) EU/dL Ur Leukocyte Esterase Small H (NEGATIVE) Urine RBC 5-10 H (0-5) Urine WBC 5-10 H (0-5) Ur Epithelial Cells Few Amorphous Sediment Not seen Urine Bacteria Moderate Urine Mucus Few Influenza Type A RNA (NEGATIVE) RSV RNA (INAAT) (NEGATIVE) Influenza Type B RNA (NEGATIVE) SARS-CoV-2 RNA (FADIA) (NEGATIVE) Meds: Medications Discontinued Medications Generic Name Dose Route Start Last Admin Trade Name Freq PRN Reason Stop Dose Admin Acetaminophen 650 mg 03/21/21 22:33 03/23/21 10:17 Acetaminophen 325 Mg Tab PO 650 mg Q4H PRN Administration Pain (Mild 1-3)/fever Albuterol 0 gm 03/21/21 22:33 Albuterol 8 Gm Inhaler INH Q4H PRN sob Albuterol/Ipratropium 3 ml 03/21/21 16:46 03/21/21 21:25 Albuterol/Ipratropium 3.0-0.5 Mg/3 Ml Neb Soln NEB 03/21/21 16:47 3 ml ONETIME ONE Administration Albuterol/Ipratropium Confirm 03/21/21 21:23 03/21/21 22:12 Albuterol/Ipratropium 3.0-0.5 Mg/3 Ml Neb Soln Administered 03/21/21 21:24 Not Given Dose 3 ml .ROUTE .STK-MED ONE Albuterol/Ipratropium 3 ml 03/21/21 22:33 03/22/21 05:02 Albuterol/Ipratropium 3.0-0.5 Mg/3 Ml Neb Soln NEB 3 ml QID BERNARDO Administration Albuterol/Ipratropium 3 ml 03/22/21 11:00 03/23/21 10:55 Albuterol/Ipratropium 3.0-0.5 Mg/3 Ml Neb Soln NEB Not Given QIDRT BERNARDO Bisacodyl 5 mg 03/21/21 22:33 Bisacodyl 5 Mg Tab PO DAILY PRN Constipation Bupropion HCl 150 mg 03/22/21 09:00 03/23/21 08:39 Bupropion 150 Mg Tab.Er PO 150 mg DAILY BERNARDO Administration Clonazepam 1 mg 03/21/21 21:05 03/21/21 21:25 Clonazepam 1 Mg Tab PO 03/21/21 21:06 1 mg BEDTIME ONE Administration Clonazepam 1 mg 03/22/21 09:00 03/23/21 08:41 Clonazepam 1 Mg Tab PO 1 mg BID BERNARDO Administration Docusate Sodium 100 mg 03/21/21 22:33 Docusate Sodium 100 Mg Cap PO BID PRN Constipation Enoxaparin Sodium 40 mg 03/21/21 22:33 03/21/21 22:58 Enoxaparin 40 Mg/0.4 Ml Syringe SUBCUT 40 mg DAILY BERNARDO Administration Enoxaparin Sodium 40 mg 03/22/21 21:00 03/22/21 21:17 Enoxaparin 40 Mg/0.4 Ml Syringe SUBCUT 40 mg BEDTIME BERNARDO Administration Gabapentin 300 mg 03/21/21 20:58 03/21/21 21:25 Gabapentin 300 Mg Cap PO 03/21/21 20:59 300 mg ONETIME ONE Administration Gabapentin 300 mg 03/22/21 21:00 03/22/21 21:18 Gabapentin 300 Mg Cap PO 300 mg BEDTIME BERNARDO Administration Sodium Chloride 1,000 mls @ 500 mls/hr 03/21/21 16:45 03/21/21 22:12 Normal Saline IV 500 mls/hr ASDIRECTED BERNARDO Administration Sodium Chloride 100 mls @ 4 mls/sec 03/21/21 17:15 03/21/21 17:31 Normal Saline IV 03/21/21 21:00 4 mls/sec ASDIRECTED BERNARDO Administration Ciprofloxacin/Dextrose 400 mg/ 200 mls @ 200 mls/hr 03/21/21 22:30 03/23/21 10:22 Premix IV Not Given Q12H BERNARDO Sodium Chloride 1,000 mls @ 125 mls/hr 03/21/21 23:00 03/22/21 05:03 Normal Saline IV 125 mls/hr ASDIRECTED BERNARDO Administration Ibuprofen 600 mg 03/21/21 22:33 Ibuprofen 600 Mg Tab PO TID PRN Pain Iopamidol 100 ml 03/21/21 17:15 03/21/21 17:31 Iopamidol 755 Mg/Ml 100 Ml Bottle IV 03/21/21 21:00 100 ml . DIRECTED BERNARDO Administration Lorazepam 1 mg 03/21/21 22:33 Lorazepam 2 Mg/Ml Sdv IV Q6H PRN Anxiety Lurasidone HCl 40 mg 03/22/21 08:00 03/23/21 07:57 Lurasidone 40 Mg Tab PO 40 mg DAILY@0800 BERNARDO Administration Metoprolol Succinate 25 mg 03/22/21 09:00 03/23/21 08:39 Metoprolol Succinate 25 Mg Tab.Er PO 25 mg DAILY BERNARDO Administration Morphine Sulfate 2 mg 03/21/21 22:33 Morphine 2 Mg/Ml Syringe IVPUSH Q2H PRN Pain (severe 7-10) Nystatin 0 gm 03/22/21 18:02 03/23/21 05:58 Nystatin Topical Powder 15 Gm Bottle TOP 1 applic QID BERNARDO Administration Nystatin 0 gm 03/23/21 10:00 03/23/21 10:18 Nystatin Topical Powder 15 Gm Bottle TOP 1 applic QID BERNARDO Administration Olanzapine 5 mg 03/21/21 22:33 Olanzapine 5 Mg Tab PO DAILY PRN Agitation Ondansetron HCl 4 mg 03/21/21 22:33 Ondansetron 4 Mg Tab.Dis PO Q6H PRN Nausea able to take PO Oxycodone HCl 5 mg 03/21/21 22:33 Oxycodone 5 Mg Tab PO Q4H PRN Pain (moderate 4-6) Pantoprazole Sodium 40 mg 03/22/21 07:30 03/23/21 07:57 Pantoprazole 40 Mg Tab.Cr PO 40 mg ACBREAKFAST BERNARDO Administration Pneumococcal Polyvalent Vaccine 0.5 ml 03/23/21 10:45 03/23/21 10:46 Pneumococcal Polyvalent-23 Vaccine 0.5 Ml Sdv IM 03/23/21 10:46 0.5 ml .ONCE ONE Administration Prazosin HCl 5 mg 03/21/21 21:00 03/21/21 21:25 Prazosin 1 Mg Cap PO 5 mg BEDTIME BERNARDO Administration Prazosin HCl 5 mg 03/22/21 21:00 03/22/21 21:20 Prazosin 1 Mg Cap PO 5 mg BEDTIME BERNARDO Administration Senna/Docusate Sodium 2 tab 03/21/21 22:33 Docusate Sodium/Sennosides 50-8.6 Mg Tab PO BID PRN Constipation Sertraline HCl 150 mg 03/21/21 20:59 03/21/21 21:43 Sertraline 50 Mg Tab PO 03/21/21 21:00 150 mg ONETIME ONE Administration Sertraline HCl 150 mg 03/22/21 21:00 03/22/21 21:18 Sertraline 50 Mg Tab PO 150 mg BEDTIME BERNARDO Administration Sodium Chloride 10 ml 03/21/21 16:45 03/21/21 17:31 Sodium Chloride 0.9% 10 Ml Syringe FLUSH 10 ml ASDIRECTED PRN Administration Keep Vein Open Sodium Chloride 10 ml 03/21/21 17:10 03/21/21 22:14 Sodium Chloride 0.9% 10 Ml Syringe FLUSH 03/21/21 17:11 10 ml ONETIME ONE Administration Triamcinolone Acetonide 1 gm 03/21/21 22:33 Triamcinolone Acetonide 0.1% Crm 80 Gm Tube TOP BID PRN Rash Zolpidem Tartrate 10 mg 03/22/21 21:00 03/22/21 21:17 Zolpidem 5 Mg Tab PO 10 mg BEDTIME BERNARDO Administration Departure - Departure Time of Disposition: 17:44 Disposition: Refer to Observation Clinical Impression: Hypoventilation associated with obesity Qualifiers: Obesity classification: adult class 3 (BMI >= 40) Serious obesity comorbidity presence: with serious comorbidity Body mass index: BMI 70 or greater Qualified Code(s): E66.2 - Morbid (severe) obesity with alveolar hypoventilation; Z68.45 - Body mass index [BMI] 70 or greater, adult - Discharge Information - Assessment/Plan Plan: Assessment Acuity = acute Site and laterality = obesity hypoventilation syndrome Etiology = morbid obesity Manifestations = hypoxia Location of injury = Home Lab values = CBC unremarkable D-dimer elevated 751 once shortness significance troponin is negative CRP elevated 4.[address] scan indeterminate for pulmonary embolism Plan Call discussed case with hospitalist on-call at 1800 kindly agreed to come evaluate the patient emergency department for admission This note was dictated using [employer] voice recognition software please call with any questions on syntax or grammar.
[2021-03-21 16:20] LABS: CORONAVIRUS COVID-19 NAA NEGATIVE (NEGATIVE)
[2021-03-21] MEDS ORDERED: Sodium Chloride 0.9% 10 ML Syringe FLUSH PRN (16:45)
[2021-03-21] MEDS ORDERED: Sodium Chloride 0.9% 1,000 ML IV SCH (16:45)
[2021-03-21] MEDS ORDERED: Albuterol/Ipratropium 3.0-0.5 MG/3 ML Neb Soln NEB ONE (16:46)
[2021-03-21] MEDS ORDERED: Sodium Chloride 0.9% 10 ML Syringe FLUSH ONE (17:10)
[2021-03-21] MEDS ORDERED: Iopamidol 755 Mg/ML 100 ML Bottle IV SCH (17:15)
[2021-03-21] MEDS ORDERED: Sodium Chloride 0.9% 100 ML IV SCH (17:15)
--- NOTE | 2021-03-21 18:22 | CRLCT ---
INDICATION: Hypoxia, elevated D-dimer TECHNIQUE: CT chest PE was acquired with 100 cc Isovue 370 intravenous contrast. COMPARISON: None. FINDINGS: Heart and vasculature: Nondiagnostic examination for the detection of pulmonary emboli secondary to inadequate opacification of the pulmonary vasculature. Thoracic aorta is left-sided. No thoracic aortic aneurysm. No pericardial effusion. Lungs and pleural: No pleural effusion or pneumothorax. Mosaic attenuation pattern of the lungs. Right upper lobe pulmonary nodule measuring 6 millimeters (6, 60). Areas of discoid atelectasis within the left lower lobe. Lymph nodes/mediastinum: No mediastinal, hilar, or axillary adenopathy. Chest wall: No masses. Upper abdomen: Surgical clips partially imaged at the gallbladder fossa, likely prior cholecystectomy. Bones: Unremarkable for age. IMPRESSION: 1. Nondiagnostic examination for the detection of pulmonary emboli secondary to inadequate opacification of the pulmonary vasculature. 2. Mosaic attenuation pattern of the lungs suggesting small airways disease. 3. Indeterminate pulmonary nodule in the right upper lobe measuring 6 millimeters. Follow-up chest CT suggested in 12 months. Please note that all CT scans at this facility use dose modulation, iterative reconstruction, and/or weight-based dosing when appropriate to reduce radiation dose to as low as reasonably achievable. Dictated by Kwesi Pugh MD @ 03/21/2021 6:21:[address] Kwesi Pugh @ Mar 21 2021 6:21PM
[2021-03-21] MEDS ORDERED: Gabapentin 300 MG Cap PO ONE (20:58)
[2021-03-21] MEDS ORDERED: Sertraline 50 MG Tab PO ONE (20:59)
[2021-03-21] MEDS ORDERED: Prazosin 1 MG Cap PO SCH (21:00)
[2021-03-21] MEDS ORDERED: ClonazePAM 1 MG Tab PO ONE (21:05)
[2021-03-21] MEDS ORDERED: Albuterol/Ipratropium 3.0-0.5 MG/3 ML Neb Soln ONE (21:23)
--- NOTE | 2021-03-21 21:57 | PCM.HP.2 ---
H&P History of Present Illness - General Date of Service: 03/21/21 Admit Problem/Dx: Admission Diagnosis/Problem Admission Diagnosis/Problem Hypoxia Source of Information: Patient, Provider, RN History Limitations: Reports: Other (cognitive impairment) - History of Present Illness Initial Comments - Free Text/Narative: chief complaint- low oxygen levels at home today. - History of Present Illness INITIAL COMMENTS - FREE TEXT/NARRATIVE: 40-year-old female presents emergency department with a complaint of shortness of breath, she was evaluated by her home health nurse today found to have oxygen saturation in mid 80s on initial evaluation by nursing staff here oxygen s aturation was 80%. She states just today she started feeling short of breath, no nausea vomiting no chest pain no GI symptoms, denies any fever, she has not had any Covid vaccine or as far she knows she has not had the Covid itself Onset of Symptoms: Reports: Today, Unknown/Unsure Duration of Symptoms: Reports: Constant Location: Reports: Generalized Quality: Reports: Other (shortness of breath) Severity: Severe (oxygen levels at 80% at home) Improves with: Reports: Other (placed on oxygen at 3 liter now at 95%) Worsens with: Reports: Other (without oxygen) Associated Symptoms: Reports: Shortness of Breath Bilateral Lower Leg Pain Score (Numeric/FACES): 3 - Related Data Allergies/Adverse Reactions: Allergies Allergy/AdvReac Type Severity Reaction Status Date / Time amoxicillin Allergy Hives Verified 03/21/21 15:28 Penicillins Allergy Hives Verified 03/21/21 15:28 Home Medications: Home Meds Gabapentin [Neurontin] 300 mg PO BEDTIME 11/06/16 [History] Lurasidone HCl [Latuda] 40 mg PO DAILY 11/06/16 [History] Omeprazole 20 mg PO DAILY 11/06/16 [History] Sertraline [Zoloft] 150 mg PO BEDTIME 11/06/16 [History] buPROPion [Wellbutrin XL] 150 mg PO DAILY 11/06/16 [History] Metoprolol Succinate 25 mg PO DAILY 07/15/18 [History] Prazosin [Minpress] 5 mg PO BEDTIME 07/15/18 [History] Zolpidem Tartrate [Ambien] 10 mg PO BEDTIME 07/15/18 [History] clonazePAM [Klonopin] 1 mg PO BID 07/15/18 [History] Albuterol [Ventolin HFA] 2 puff INH Q4H PRN 07/27/18 [History] Naproxen 500 mg PO BID PRN 09/07/18 [History] OLANZapine [ZyPREXA] 1 tab PO DAILY PRN 02/14/19 [History] Acyclovir [Zovirax 5% Oint] 1 applic TOP Q3H PRN 02/21/19 [History] Etonogestrel [Nexplanon] 68 mg SQ Q36M 02/21/19 [History] Ibuprofen [Motrin] 600 mg PO TID PRN #30 tab 02/21/19 [Rx] Triamcinolone Acetonide [Kenalog 0.1% Crm] 1 applic TOP BID PRN 02/21/19 [History] Sennosides/Docusate Sodium [Stool Softener-Laxative] 2 tab PO BID PRN 05/13/19 [History] Past Medical History HEENT History: Reports: Impaired Vision Cardiovascular History: Reports: Hypertension Respiratory History: Reports: Asthma, SOB Gastrointestinal History: Reports: GERD Neurological History: Reports: Migraines Psychiatric History: Reports: Anxiety, Depression, Hallucinations, Psych Hospitalization(s), Schizophrenia, Suicidal Ideation, Other (See Below) Other Psychiatric History: SEEING THINGS AND HEARING THINGS Endocrine/Metabolic History: Reports: Obesity/BMI 30+ - Infectious Disease History Infectious Disease History: Reports: Chicken Pox - Past Surgical History Head Surgeries/Procedures: Reports: None HEENT Surgical History: Reports: None Cardiovascular Surgical History: Reports: None Respiratory Surgical History: Reports: None GI Surgical History: Reports: Cholecystectomy, Colonoscopy Endocrine Surgical History: Reports: None Neurological Surgical History: Reports: None Dermatological Surgical History: Reports: None Social & Family History - Family History Family Medical History: No Pertinent Family History - Tobacco Use Tobacco Use Status *Q: Never Tobacco User - Caffeine Use Caffeine Use: Reports: Coffee, Soda - Recreational Drug Use Recreational Drug Use: No - Living Situation & Occupation Living situation: Reports: with Significant Other (lives with Primitivo Benedict for the past 16 years, no children.) Occupation: Disabled (lives with Boyfriend in [place], [place].) H&P Review of Systems - Review of Systems: Review Of Systems: See Below General: Reports: Other (morbid obesity, shortness of breath with activity.) HEENT: Reports: Glasses Pulmonary: Reports: Shortness of Breath Cardiovascular: Reports: No Symptoms Gastrointestinal: Reports: No Symptoms Genitourinary: Reports: No Symptoms Musculoskeletal: Reports: No Symptoms Skin: Reports: No Symptoms Psychiatric: Reports: Anxiety (schizophrenia and depression) Neurological: Reports: Pre-Existing Deficit Hematologic/Lymphatic: Reports: No Symptoms Immunologic: Reports: No Symptoms Exam - Exam Exam: See Below - Vital Signs Vital Signs: Last Vital Signs Temp 98 F 03/21/21 15:26 Pulse 88 03/21/21 21:08 Resp 24 H 03/21/21 16:01 BP 200/112 H 03/21/21 21:25 Pulse Ox 94 L 03/21/21 21:08 Weight: 443 lb 5.593 oz - Exam Quality Assessment: Supplemental Oxygen, DVT Prophylaxis General: Alert, Oriented, Cooperative HEENT: PERRLA, Conjunctiva Clear, EACs Clear, EOMI, Hearing Intact, Nares Patent, Glasses Neck: Supple, Trachea Midline, 2 Lungs: Clear to Auscultation, Normal Respiratory Effort Cardiovascular: Regular Rate, Regular Rhythm, Normal S1, Normal S2 GI/Abdominal Exam: Normal Bowel Sounds, Soft (Female) Exam: Deferred Rectal (Female) Exam: Deferred Back Exam: Normal Inspection Extremities: Pedal Edema (legs with edema due to weight), Limited Range of Motion Skin: Warm, Dry, Intact Neurological: Strength Equal Bilateral Neuro Extensive - Mental Status: Alert, Oriented x3 Neuro Extensive - Motor, Sensory, Reflexes: Motor/Sensory Deficits (chronic due to weight and size) Psychiatric: Alert, Normal Affect, Normal Mood, Anxious - Patient Data Lab Results Last 24 hrs: Laboratory Results - last 24 hr 03/21/21 03/21/21 03/21/21 Range/Units 15:19 15:30 15:30 WBC 7.9 (4.5-11.0) K/uL RBC 5.68 H (3.30-5.50) M/uL Hgb 14.6 (12.0-15.0) g/dL Hct 50.5 H (36.0-48.0) % MCV 89 (80-98) fL MCH 26 L (27-31) pg MCHC 29 L (32-36) % Plt Count 282 (150-400) K/uL Neut % (Auto) 70.7 H (36-66) % Lymph % (Auto) 17.4 L (24-44) % [place] % (Auto) 8.3 H (2-6) % Eos % (Auto) 3.3 (2-4) % Baso % (Auto) 0.3 (0-1) % D-Dimer, Quantitative (0.0-500.0) ng/mL Sodium 144 (140-148) mmol/L Potassium 4.4 (3.6-5.2) mmol/L Chloride 99 L (100-108) mmol/L Carbon Dioxide 35 H (21-32) mmol/L Anion Gap 14.4 H (5.0-14.0) mmol/L BUN 14 D (7-18) mg/dL Creatinine 0.9 (0.6-1.0) mg/dL Est Cr Clr Drug Dosing 73.19 mL/min Estimated GFR (MDRD) > 60 (>60) Glucose 83 (74-106) mg/dL Lactic Acid (0.4-2.0) mmol/L Calcium 8.8 (8.5-10.1) mg/dL Total Bilirubin 0.6 (0.2-1.0) mg/dL AST 12 L (15-37) U/L ALT 24 (12-78) U/L Alkaline Phosphatase 106 (46-116) U/L Troponin I (0.000-0.056) ng/mL C-Reactive Protein 4.19 H (0.0-0.3) mg/dL NT-Pro-B Natriuret Pep (5-125) pg/mL Total Protein 7.9 (6.4-8.2) g/dL Albumin 3.1 L (3.4-5.0) g/dL Globulin 4.8 H (2.3-3.5) g/dL Albumin/Globulin Ratio 0.7 L (1.2-2.2) Procalcitonin ng/mL Urine Color (YELLOW) Urine Appearance (CLEAR) Urine pH (5.0-8.0) Ur Specific [place] (1.008-1.030) Urine Protein (NEGATIVE) mg/dL Urine Glucose (UA) (NEGATIVE) mg/dL Urine Ketones (NEGATIVE) mg/dL Urine Occult Blood (NEGATIVE) Urine Nitrite (NEGATIVE) Urine Bilirubin (NEGATIVE) Urine Urobilinogen (0.2-1.0) EU/dL Ur Leukocyte Esterase (NEGATIVE) Urine RBC (0-5) Urine WBC (0-5) Ur Epithelial Cells Amorphous Sediment Urine Bacteria Urine Mucus Influenza Type A RNA Negative (NEGATIVE) RSV RNA (INAAT) Negative (NEGATIVE) Influenza Type B RNA Negative (NEGATIVE) SARS-CoV-2 RNA (FADIA) Negative (NEGATIVE) 03/21/21 03/21/21 03/21/21 Range/Units 15:30 15:30 15:30 WBC (4.5-11.0) K/uL RBC (3.30-5.50) M/uL Hgb (12.0-15.0) g/dL Hct (36.0-48.0) % MCV (80-98) fL MCH (27-31) pg MCHC (32-36) % Plt Count (150-400) K/uL Neut % (Auto) (36-66) % Lymph % (Auto) (24-44) % [place] % (Auto) (2-6) % Eos % (Auto) (2-4) % Baso % (Auto) (0-1) % D-Dimer, Quantitative 751.13 H (0.0-500.0) ng/mL Sodium (140-148) mmol/L Potassium (3.6-5.2) mmol/L Chloride (100-108) mmol/L Carbon Dioxide (21-32) mmol/L Anion Gap (5.0-14.0) mmol/L BUN (7-18) mg/dL Creatinine (0.6-1.0) mg/dL Est Cr Clr Drug Dosing mL/min Estimated GFR (MDRD) (>60) Glucose (74-106) mg/dL Lactic Acid 0.8 (0.4-2.0) mmol/L Calcium (8.5-10.1) mg/dL Total Bilirubin (0.2-1.0) mg/dL AST (15-37) U/L ALT (12-78) U/L Alkaline Phosphatase (46-116) U/L Troponin I (0.000-0.056) ng/mL C-Reactive Protein (0.0-0.3) mg/dL NT-Pro-B Natriuret Pep (5-125) pg/mL Total Protein (6.4-8.2) g/dL Albumin (3.4-5.0) g/dL Globulin (2.3-3.5) g/dL Albumin/Globulin Ratio (1.2-2.2) Procalcitonin < 0.05 ng/mL Urine Color (YELLOW) Urine Appearance (CLEAR) Urine pH (5.0-8.0) Ur Specific [place] (1.008-1.030) Urine Protein (NEGATIVE) mg/dL Urine Glucose (UA) (NEGATIVE) mg/dL Urine Ketones (NEGATIVE) mg/dL Urine Occult Blood (NEGATIVE) Urine Nitrite (NEGATIVE) Urine Bilirubin (NEGATIVE) Urine Urobilinogen (0.2-1.0) EU/dL Ur Leukocyte Esterase (NEGATIVE) Urine RBC (0-5) Urine WBC (0-5) Ur Epithelial Cells Amorphous Sediment Urine Bacteria Urine Mucus Influenza Type A RNA (NEGATIVE) RSV RNA (INAAT) (NEGATIVE) Influenza Type B RNA (NEGATIVE) SARS-CoV-2 RNA (FADIA) (NEGATIVE) 03/21/21 03/21/21 03/21/21 Range/Units 15:30 15:30 17:00 WBC (4.5-11.0) K/uL RBC (3.30-5.50) M/uL Hgb (12.0-15.0) g/dL Hct (36.0-48.0) % MCV (80-98) fL MCH (27-31) pg MCHC (32-36) % Plt Count (150-400) K/uL Neut % (Auto) (36-66) % Lymph % (Auto) (24-44) % [place] % (Auto) (2-6) % Eos % (Auto) (2-4) % Baso % (Auto) (0-1) % D-Dimer, Quantitative (0.0-500.0) ng/mL Sodium (140-148) mmol/L Potassium (3.6-5.2) mmol/L Chloride (100-108) mmol/L Carbon Dioxide (21-32) mmol/L Anion Gap (5.0-14.0) mmol/L BUN (7-18) mg/dL Creatinine (0.6-1.0) mg/dL Est Cr Clr Drug Dosing mL/min Estimated GFR (MDRD) (>60) Glucose (74-106) mg/dL Lactic Acid (0.4-2.0) mmol/L Calcium (8.5-10.1) mg/dL Total Bilirubin (0.2-1.0) mg/dL AST (15-37) U/L ALT (12-78) U/L Alkaline Phosphatase (46-116) U/L Troponin I < 0.017 (0.000-0.056) ng/mL C-Reactive Protein (0.0-0.3) mg/dL NT-Pro-B Natriuret Pep 113 (5-125) pg/mL Total Protein (6.4-8.2) g/dL Albumin (3.4-5.0) g/dL Globulin (2.3-3.5) g/dL Albumin/Globulin Ratio (1.2-2.2) Procalcitonin ng/mL Urine Color Yellow (YELLOW) Urine Appearance Slightly cloudy A (CLEAR) Urine pH 6.0 (5.0-8.0) Ur Specific [place] 1.020 (1.008-1.030) Urine Protein Negative (NEGATIVE) mg/dL Urine Glucose (UA) Negative (NEGATIVE) mg/dL Urine Ketones Negative (NEGATIVE) mg/dL Urine Occult Blood Large H (NEGATIVE) Urine Nitrite Negative (NEGATIVE) Urine Bilirubin Negative (NEGATIVE) Urine Urobilinogen 0.2 (0.2-1.0) EU/dL Ur Leukocyte Esterase Small H (NEGATIVE) Urine RBC 5-10 H (0-5) Urine WBC 5-10 H (0-5) Ur Epithelial Cells Few Amorphous Sediment Not seen Urine Bacteria Moderate Urine Mucus Few Influenza Type A RNA (NEGATIVE) RSV RNA (INAAT) (NEGATIVE) Influenza Type B RNA (NEGATIVE) SARS-CoV-2 RNA (FADIA) (NEGATIVE) Result Diagrams: 03/21/21 15:30 03/21/21 15:30 Sepsis Event Note - Evaluation Sepsis Screening Result: No Definite Risk - Focused Exam Vital Signs: Vital Signs Temp Pulse Resp BP BP Pulse Ox 03/21/21 21:25 200/112 H 03/21/21 21:08 88 186/119 H 94 L 03/21/21 20:24 80 161/113 H 91 L 03/21/21 18:50 79 159/101 H 94 L 03/21/21 18:00 81 155/103 H 97 03/21/21 17:00 83 152/101 H 03/21/21 16:01 84 24 H 164/100 H 96 03/21/21 15:26 98 F 86 26 H 192/111 H 97 03/21/21 15:21 86 192/111 H 97 03/21/21 15:01 93 L 03/21/21 14:54 98 F 89 26 H 187/109 H 80 L - Problem List (1) Hypoventilation associated with obesity SNOMED Code(s): 562882632 ICD Code: E66.2 - MORBID (SEVERE) OBESITY WITH ALVEOLAR HYPOVENTILATION Status: Acute Current Visit: Yes Qualifiers: Obesity classification: adult class 3 (BMI >= 40) Body mass index: BMI 70 or greater (2) Schizophrenia SNOMED Code(s): 42898078 ICD Code: F20.9 - SCHIZOPHRENIA, UNSPECIFIED Status: Chronic Priority: Low Current Visit: Yes Qualifiers: Schizophrenia type: unspecified Qualified Code(s): F20.9 - Schizophrenia, unspecified (3) Hypertension SNOMED Code(s): 81464624 ICD Code: I10 - ESSENTIAL (PRIMARY) HYPERTENSION Status: Acute Current Visit: Yes Qualifiers: Hypertension type: essential hypertension Qualified Code(s): I10 - E ssential (primary) hypertension (4) Urinary tract infection SNOMED Code(s): 69364811 ICD Code: N39.0 - URINARY TRACT INFECTION, SITE NOT SPECIFIED Status: Acute Priority: Low Current Visit: Yes Qualifiers: Urinary tract infection type: site unspecified Hematuria presence: with hematuria Qualified Code(s): N39.0 - Urinary tract infection, site not specified; R31.9 - Hematuria, unspecified Problem List Initiated/Reviewed/Updated: Yes Orders Last 24hrs: Active Orders 24 hr Category Date Time Status Patient Status Manage Transfer [TRANSFER] Routine ADT 03/21/21 21:40 Ordered Peripheral IV Care [RC] . DIRECTED Care 03/21/21 16:45 Active RT Aerosol Therapy [RC] ASDIRECTED Care 03/21/21 16:46 Active Vital Signs [RC] Q1H Care 03/21/21 15:18 Active Chest 1V Frontal [CR] Urgent Exams 03/21/21 15:19 Taken CULTURE BLOOD [BC] Urgent Lab 03/21/21 15:30 Received CULTURE BLOOD [BC] Urgent Lab 03/21/21 15:30 Received CULTURE URINE [RM] Stat Lab 03/21/21 21:28 Received Prazosin [Minpress] Med 03/21/21 21:00 Active 5 mg PO BEDTIME Sodium Chloride 0.9% [Normal Saline] 1,000 ml Med 03/21/21 16:45 Active IV ASDIRECTED Sodium Chloride 0.9% [Saline Flush] Med 03/21/21 16:45 Active 10 ml FLUSH ASDIRECTED PRN Blood Culture x2 Reflex Set [OM.PC] Urgent Oth 03/21/21 15:18 Ordered Isolation [COMM] Stat Oth 03/21/21 15:19 Ordered Peripheral IV Insertion Adult [OM.PC] Urgent Oth 03/21/21 16:45 Ordered Resuscitation Status Routine Resus Stat 03/21/21 21:42 Ordered Medication Orders Sodium Chloride (Normal Saline) 1,000 mls @ 500 mls/hr IV ASDIRECTED BERNARDO Prazosin HCl (Prazosin 1 Mg Cap) 5 mg PO BEDTIME BERNARDO Last Admin: 03/21/21 21:25 Dose: 5 mg Documented by: NIYAH Sodium Chloride (Sodium Chloride 0.9% 10 Ml Syringe) 10 ml FLUSH ASDIRECTED PRN PRN Reason: Keep Vein Open Last Admin: 03/21/21 17:31 Dose: 10 ml Documented by: THEODORE Assessment/Plan Comment:: ASSESSMENT / PLAN Hypoventalation associated with obesity- This is a 40 year old female present to the ER with her S.O. Jak, report the home health nurse was at their apartment and noted her oxygen level to be 80%. She was referred to ER for evaluation. At ER her oxygen saturation were noted to be upper 80% to 90%. Place on oxygen at 3 liter and oxygen level increased to 95%. Labs show elevated d- dimer 751.13, Chest x-ray negative, CT Chest angio did not show any acute process. CBC and Chemistries no acute process, Creatinine 0.9. She was given nebulizer treatment which improved she shortness of breath. plan to admit observation for oxygen with plan to consult for home oxygen in am. Hypoxia -elevated d-dimer -continue pulse oxygen -oxygen 3 liter per NC -nebulizer as needed for shortness of breath -consult to Case Management for home oxygen Urinary Tract Infection -Admit to [address] [place] [address] for further monitoring -IV Fluids for rehydration NS 125 mL per hour. -IV Antibiotic; Cipro 400mg IV every 12 hours -Tylenol, Motrin or Oxycodone for pain control -Advise to notify nurses of any fever or worsen pain -blood cultures x2 pending -urine culture pending -And a.m. labs: CBC, BMP Hypertension -continue outpatient medications Schizophrenia with anxiety -continue outpatient plan of care Maintenance issues -Orders home meds: chronic medication -Nutrition: regular diet -Pruett catheter - not indicated -DVT Lovenox 40 mg subcut daily -PPI - PPI daily CODE STATUS: FULL Admission status: Admit to [address] [place] [address] Admission justification. This patient will be admitted for inpatient services and is medically appropriate meeting medical necessity for inpatient admission as outlined in my documentation. I reasonably expect the patient will require inpatient services that span. Time over 2 midnights. I reasonably expect this patient to be discharged or transferred within 96 hours after admission to the [facility]. Disposition: home with Partner Primary care provider: Dr. Aguirre Hospitalist: Dr. Quinteros - Mortality Measure Prognosis:: Good
[2021-03-21] MEDS ORDERED: Albuterol 8 GM Inhaler INH PRN (22:33)
[2021-03-21] MEDS ORDERED: OLANZapine 5 MG Tab PO PRN (22:33)
[2021-03-21] MEDS ORDERED: Enoxaparin 40 MG/0.4 ML Syringe SUBCUT SCH (22:33)
[2021-03-21] MEDS ORDERED: Docusate Sodium 100 MG Cap PO PRN (22:33)
[2021-03-21] MEDS ORDERED: Ibuprofen 600 MG Tab PO PRN (22:33)
[2021-03-21] MEDS ORDERED: LORazepam 2 MG/ML SDV IV PRN (22:33)
[2021-03-21] MEDS ORDERED: Ondansetron 4 MG Tab.DIS PO PRN (22:33)
[2021-03-21] MEDS ORDERED: Bisacodyl 5 MG Tab PO PRN (22:33)
[2021-03-21] MEDS ORDERED: Triamcinolone Acetonide 0.1% Crm 80 GM Tube TOP PRN (22:33)
[2021-03-21] MEDS ORDERED: oxyCODONE 5 MG Tab PO PRN (22:33)
[2021-03-21] MEDS ORDERED: Morphine 2 MG/ML SYRINGE IVPUSH PRN (22:33)
[2021-03-21] MEDS: Albuterol/Ipratropium 3.0-0.5 MG/3 ML Neb Soln NEB SCH (22:58)
[2021-03-21] MEDS: Ciprofloxacin in D5W 400 MG in Premix Bag 1 BAG IV SCH ×2 (22:58)
[2021-03-21] MEDS: Sodium Chloride 0.9% 1,000 ML IV SCH (23:04)
[2021-03-21] MEDS: Acetaminophen 325 MG Tab PO PRN (23:07)
[2021-03-22] MEDS: Acetaminophen 325 MG Tab PO PRN ×3 (05:02→19:21)
[2021-03-22] MEDS: Albuterol/Ipratropium 3.0-0.5 MG/3 ML Neb Soln NEB SCH ×4 (05:02→21:17)
[2021-03-22] MEDS: Sodium Chloride 0.9% 1,000 ML IV SCH (05:03)
[2021-03-22] MEDS: Metoprolol Succinate 25 MG Tab.ER PO SCH (08:41)
[2021-03-22] MEDS: buPROPion 150 MG Tab.ER PO SCH (08:41)
[2021-03-22] MEDS: Lurasidone 40 MG Tab PO SCH (08:41)
[2021-03-22] MEDS: Pantoprazole 40 MG Tab.CR PO SCH (08:41)
[2021-03-22] MEDS: ClonazePAM 1 MG Tab PO SCH ×2 (08:44→21:17)
--- NOTE | 2021-03-22 08:56 | CR ---
CHEST: Portable 03/21/2021 at 4:03 PM CLINICAL HISTORY:Hypoxia COMPARISON:2018 FINDINGS: Heart is mildly enlarged. Pulmonary vascularity is normal. Lung markings are exaggerated by less than optimal inspiration and patient's large body habitus. No definite infiltrates are seen. Impression: Cardiomegaly Limited portable study If clinical symptomatology persists or worsens a repeat exam is recommended.
[2021-03-22] MEDS: Ciprofloxacin in D5W 400 MG in Premix Bag 1 BAG IV SCH ×4 (11:08→22:25)
--- NOTE | 2021-03-22 18:01 | PCM.PN ---
- General Info Date of Service: 03/22/21 Subjective Update: Ms. Elliott has been fairly stable since admission yesterday. Oxygen saturations improved with use of continuous supplemental oxygen. She is feeling well and has not had significant fevers or white blood cell count elevation. 1 of 3 blood culture bottles is found to be positive with gram-positive cocci. Functional Status: Reports: Tolerating Diet, Ambulating, Urinating - Review of Systems General: Reports: Weakness, Fatigue. Denies: Fever, Chills Pulmonary: Reports: No Symptoms Cardiovascular: Reports: No Symptoms Gastrointestinal: Reports: No Symptoms Genitourinary: Reports: No Symptoms - Patient Data Vitals - Most Recent: Last Vital Signs Temp 98.5 F 03/22/21 13:08 Pulse 90 03/22/21 14:33 Resp 18 03/22/21 13:08 BP 130/69 03/22/21 13:08 Pulse Ox 93 L 03/22/21 15:51 Weight - Most Recent: 462 lb 7.983 oz I&O - Last 24 Hours: Intake & Output 03/22/21 03/22/21 03/22/21 06:59 14:59 22:59 Intake Total 1442 Balance 1442 Lab Results Last 24 Hours: Laboratory Results - last 24 hr 03/22/21 03/22/21 Range/Units 04:42 04:42 WBC 8.9 (4.5-11.0) K/uL RBC 5.14 (3.30-5.50) M/uL Hgb 13.5 (12.0-15.0) g/dL Hct 46.0 (36.0-48.0) % MCV 90 (80-98) fL MCH 26 L (27-31) pg MCHC 29 L (32-36) % Plt Count 288 (150-400) K/uL Neut % (Auto) 64.8 (36-66) % Lymph % (Auto) 23.8 L (24-44) % Kendall % (Auto) 8.6 H (2-6) % Eos % (Auto) 2.1 (2-4) % Baso % (Auto) 0.7 (0-1) % Sodium 144 (140-148) mmol/L Potassium 4.2 (3.6-5.2) mmol/L Chloride 103 (100-108) mmol/L Carbon Dioxide 36 H (21-32) mmol/L Anion Gap 9.2 (5.0-14.0) mmol/L BUN 10 (7-18) mg/dL Creatinine 0.8 (0.6-1.0) mg/dL Est Cr Clr Drug Dosing 82.33 mL/min Estimated GFR (MDRD) > 60 (>60) Glucose 83 (74-106) mg/dL Calcium 8.5 (8.5-10.1) mg/dL Skyler Results Last 24 Hours: Microbiology 03/21/21 15:30 Aerobic Blood Culture - Preliminary Blood - Arm, Left NO GROWTH AFTER 1 DAY Anaerobic Blood Culture - Preliminary NO GROWTH AFTER 1 DAY 03/21/21 15:30 Aerobic Blood Culture - Preliminary Blood - Arm, Right Med Orders - Current: Current Medications Acetaminophen (Acetaminophen 325 Mg Tab) 650 mg PO Q4H PRN PRN Reason: Pain (Mild 1-3)/fever Last Admin: 03/22/21 14:13 Dose: 650 mg Documented by: Albuterol (Albuterol 8 Gm Inhaler) 0 gm INH Q4H PRN PRN Reason: sob Albuterol/Ipratropium (Albuterol/Ipratropium 3.0-0.5 Mg/3 Ml Neb Soln) 3 ml NEB QIDRT [facility] Last Admin: 03/22/21 14:33 Dose: 3 ml Documented by: Bisacodyl (Bisacodyl 5 Mg Tab) 5 mg PO DAILY PRN PRN Reason: Constipation Bupropion HCl (Bupropion 150 Mg Tab.Er) 150 mg PO DAILY [facility] Last Admin: 03/22/21 08:41 Dose: 150 mg Documented by: Clonazepam (Clonazepam 1 Mg Tab) 1 mg PO BID [facility] Last Admin: 03/22/21 08:44 Dose: 1 mg Documented by: Docusate Sodium (Docusate Sodium 100 Mg Cap) 100 mg PO BID PRN PRN Reason: Constipation Enoxaparin Sodium (Enoxaparin 40 Mg/0.4 Ml Syringe) 40 mg SUBCUT BEDTIME [facility] Gabapentin (Gabapentin 300 Mg Cap) 300 mg PO BEDTIME [facility] Ciprofloxacin/Dextrose 400 mg/ (Premix) 200 mls @ 200 mls/hr IV Q12H [facility] Last Admin: 03/22/21 11:08 Dose: 200 mls/hr Documented by: Ibuprofen (Ibuprofen 600 Mg Tab) 600 mg PO TID PRN PRN Reason: Pain Lorazepam (Lorazepam 2 Mg/Ml Sdv) 1 mg IV Q6H PRN PRN Reason: Anxiety Lurasidone HCl (Lurasidone 40 Mg Tab) 40 mg PO DAILY@0800 [facility] Last Admin: 03/22/21 08:41 Dose: 40 mg Documented by: Metoprolol Succinate (Metoprolol Succinate 25 Mg Tab.Er) 25 mg PO DAILY [facility] Last Admin: 03/22/21 08:41 Dose: 25 mg Documented by: Morphine Sulfate (Morphine 2 Mg/Ml Syringe) 2 mg IVPUSH Q2H PRN PRN Reason: Pain (severe 7-10) Olanzapine (Olanzapine 5 Mg Tab) 5 mg PO DAILY PRN PRN Reason: Agitation Ondansetron HCl (Ondansetron 4 Mg Tab.Dis) 4 mg PO Q6H PRN PRN Reason: Nausea able to take PO Oxycodone HCl (Oxycodone 5 Mg Tab) 5 mg PO Q4H PRN PRN Reason: Pain (moderate 4-6) Pantoprazole Sodium (Pantoprazole 40 Mg Tab.Cr) 40 mg PO ACBREAKFAST [facility] Last Admin: 03/22/21 08:41 Dose: 40 mg Documented by: Prazosin HCl (Prazosin 1 Mg Cap) 5 mg PO BEDTIME [facility] Senna/Docusate Sodium (Docusate Sodium/Sennosides 50-8.6 Mg Tab) 2 tab PO BID PRN PRN Reason: Constipation Sertraline HCl (Sertraline 50 Mg Tab) 150 mg PO BEDTIME [facility] Sodium Chloride (Sodium Chloride 0.9% 10 Ml Syringe) 10 ml FLUSH ASDIRECTED PRN PRN Reason: Keep Vein Open Last Admin: 03/21/21 17:31 Dose: 10 ml Documented by: Triamcinolone Acetonide (Triamcinolone Acetonide 0.1% Crm 80 Gm Tube) 1 gm TOP BID PRN PRN Reason: Rash Zolpidem Tartrate (Zolpidem 5 Mg Tab) 10 mg PO BEDTIME [facility] Discontinued Medications Albuterol/Ipratropium (Albuterol/Ipratropium 3.0-0.5 Mg/3 Ml Neb Soln) 3 ml NEB ONETIME ONE Stop: 03/21/21 16:47 Last Admin: 03/21/21 21:25 Dose: 3 ml Documented by: Albuterol/Ipratropium (Albuterol/Ipratropium 3.0-0.5 Mg/3 Ml Neb Soln) Confirm Administered Dose 3 ml .ROUTE .STK-MED ONE Stop: 03/21/21 21:24 Last Admin: 03/21/21 22:12 Dose: Not Given Documented by: Albuterol/Ipratropium (Albuterol/Ipratropium 3.0-0.5 Mg/3 Ml Neb Soln) 3 ml NEB QID [facility] Last Admin: 03/22/21 05:02 Dose: 3 ml Documented by: Clonazepam (Clonazepam 1 Mg Tab) 1 mg PO BEDTIME ONE Stop: 03/21/21 21:06 Last Admin: 03/21/21 21:25 Dose: 1 mg Documented by: Enoxaparin Sodium (Enoxaparin 40 Mg/0.4 Ml Syringe) 40 mg SUBCUT DAILY [facility] Last Admin: 03/21/21 22:58 Dose: 40 mg Documented by: Gabapentin (Gabapentin 300 Mg Cap) 300 mg PO ONETIME ONE Stop: 03/21/21 20:59 Last Admin: 03/21/21 21:25 Dose: 300 mg Documented by: Sodium Chloride (Normal Saline) 1,000 mls @ 500 mls/hr IV ASDIRECTED [facility] Last Admin: 03/21/21 22:12 Dose: 500 mls/hr Documented by: Sodium Chloride (Normal Saline) 100 mls @ 4 mls/sec IV ASDIRECTED [facility] Stop: 03/21/21 21:00 Last Admin: 03/21/21 17:31 Dose: 4 mls/sec Documented by: Sodium Chloride (Normal Saline) 1,000 mls @ 125 mls/hr IV ASDIRECTED [facility] Last Admin: 03/22/21 05:03 Dose: 125 mls/hr Documented by: Iopamidol (Iopamidol 755 Mg/Ml 100 Ml Bottle) 100 ml IV . DIRECTED [facility] Stop: 03/21/21 21:00 Last Admin: 03/21/21 17:31 Dose: 100 ml Documented by: Prazosin HCl (Prazosin 1 Mg Cap) 5 mg PO BEDTIME [facility] Last Admin: 03/21/21 21:25 Dose: 5 mg Documented by: Sertraline HCl (Sertraline 50 Mg Tab) 150 mg PO ONETIME ONE Stop: 03/21/21 21:00 Last Admin: 03/21/21 21:43 Dose: 150 mg Documented by: Sodium Chloride (Sodium Chloride 0.9% 10 Ml Syringe) 10 ml FLUSH ONETIME ONE Stop: 03/21/21 17:11 Last Admin: 03/21/21 22:14 Dose: 10 ml Documented by: - Exam Quality Assessment: Supplemental Oxygen General: Alert, Oriented, Cooperative, Mild Distress Lungs: Clear to Auscultation, Normal Respiratory Effort, Decreased Breath Sounds Cardiovascular: Regular Rate, Regular Rhythm, No Murmurs GI/Abdominal Exam: Soft, Non-Tender, No Organomegaly, No Distention Extremities: Non-Tender, No Pedal Edema - Patient Data Lab Results Last 24 hrs: Laboratory Results - last 24 hr 03/22/21 03/22/21 Range/Units 04:42 04:42 WBC 8.9 (4.5-11.0) K/uL RBC 5.14 (3.30-5.50) M/uL Hgb 13.5 (12.0-15.0) g/dL Hct 46.0 (36.0-48.0) % MCV 90 (80-98) fL MCH 26 L (27-31) pg MCHC 29 L (32-36) % Plt Count 288 (150-400) K/uL Neut % (Auto) 64.8 (36-66) % Lymph % (Auto) 23.8 L (24-44) % Kendall % (Auto) 8.6 H (2-6) % Eos % (Auto) 2.1 (2-4) % Baso % (Auto) 0.7 (0-1) % Sodium 144 (140-148) mmol/L Potassium 4.2 (3.6-5.2) mmol/L Chloride 103 (100-108) mmol/L Carbon Dioxide 36 H (21-32) mmol/L Anion Gap 9.2 (5.0-14.0) mmol/L BUN 10 (7-18) mg/dL Creatinine 0.8 (0.6-1.0) mg/dL Est Cr Clr Drug Dosing 82.33 mL/min Estimated GFR (MDRD) > 60 (>60) Glucose 83 (74-106) mg/dL Calcium 8.5 (8.5-10.1) mg/dL Result Diagrams: 03/22/21 04:42 03/22/21 04:42 Skyler Results Last 24 hrs: Microbiology 03/21/21 15:30 Aerobic Blood Culture - Preliminary Blood - Arm, Left NO GROWTH AFTER 1 DAY Anaerobic Blood Culture - Preliminary NO GROWTH AFTER 1 DAY 03/21/21 15:30 Aerobic Blood Culture - Preliminary Blood - Arm, Right Sepsis Event Note - Evaluation Sepsis Screening Result: No Definite Risk - Focused Exam Vital Signs: Vital Signs Temp Pulse Pulse Resp BP BP Pulse Ox 03/22/21 15:51 93 L 03/22/21 14:33 90 03/22/21 13:08 98.5 F 96 18 130/69 93 L 03/22/21 10:45 90 03/22/21 08:41 90 135/86 03/22/21 07:20 91 L 03/22/21 07:17 97.3 F 90 18 135/86 92 L - Problem List Review Problem List Initiated/Reviewed/Updated: Yes - My Orders Last 24 Hours: My Active Orders 03/22/21 10:11 RT Evaluate for Home Oxygen [RC] Click to Edit 03/22/21 11:51 Discontinue Telemetry Monitoring [Cardiac Monitoring Discontinue] [RC] Click to Edit Convert IV to Saline Lock [OM.PC] Routine 03/22/21 17:56 Convert IV to Saline Lock [OM.PC] Routine - Plan Plan:: ASSESSMENT / PLAN Obesity hypoventilation syndrome-likely longstanding and slowly progressive over time -oxygen 3 liter per NC -nebulizer as needed for shortness of breath -consult to Case Management for home oxygen Positive blood culture-1 of 3 blood culture bottles growing gram-positive cocci -Probable contaminant Urinary Tract Infection -Admit to [address] [place] [address] for further monitoring -Saline lock IV -IV Antibiotic; Cipro 400mg IV every 12 hours -Tylenol, Motrin or Oxycodone for pain control -Advise to notify nurses of any fever or worsen pain -blood cultures x2 pending -urine culture pending Hypertension -continue outpatient medications Schizophrenia with anxiety -continue outpatient plan of care Maintenance issues -Orders home meds: chronic medication -Nutrition: regular diet -Pruett catheter - not indicated -DVT Lovenox 40 mg subcut daily -PPI - PPI daily CODE STATUS: FULL Admission status: Admit to [address] [place] [address] Admission justification. This patient will be admitted for inpatient services and is medically appropriate meeting medical necessity for inpatient admission as outlined in my documentation. I reasonably expect the patient will require inpatient services that span. Time over 2 midnights. I reasonably expect this patient to be discharged or transferred within 96 hours after admission to the critical [facility]. Disposition: home with Partner Primary care provider: Dr. Aguirre Hospitalist: Dr. Quinteros
[2021-03-22] MEDS: Nystatin Topical Powder 15 GM Bottle TOP SCH ×2 (19:30→22:26)
[2021-03-22] MEDS ORDERED: Sertraline 50 MG Tab PO SCH (21:00)
[2021-03-22] MEDS ORDERED: Prazosin 1 MG Cap PO SCH (21:00)
[2021-03-22] MEDS ORDERED: Enoxaparin 40 MG/0.4 ML Syringe SUBCUT SCH (21:00)
[2021-03-22] MEDS ORDERED: Zolpidem 5 MG Tab PO SCH (21:00)
[2021-03-22] MEDS ORDERED: Gabapentin 300 MG Cap PO SCH (21:00)
[2021-03-23] MEDS: Nystatin Topical Powder 15 GM Bottle TOP SCH (05:58)
[2021-03-23 07:43] VITALS: PULSE 89
[2021-03-23] MEDS: Albuterol/Ipratropium 3.0-0.5 MG/3 ML Neb Soln NEB SCH ×2 (07:47→10:55)
[2021-03-23] MEDS: Lurasidone 40 MG Tab PO SCH (07:57)
[2021-03-23] MEDS: Pantoprazole 40 MG Tab.CR PO SCH (07:57)
[2021-03-23 08:39] VITALS: BP 138/77
[2021-03-23] MEDS: Metoprolol Succinate 25 MG Tab.ER PO SCH (08:39)
[2021-03-23] MEDS: buPROPion 150 MG Tab.ER PO SCH (08:39)
[2021-03-23] MEDS: ClonazePAM 1 MG Tab PO SCH (08:41)
[2021-03-23] MEDS ORDERED: Nystatin Topical Powder 15 GM Bottle TOP SCH (10:00)
[2021-03-23] MEDS: Acetaminophen 325 MG Tab PO PRN (10:17)
[2021-03-23] MEDS: Ciprofloxacin in D5W 400 MG in Premix Bag 1 BAG IV SCH ×2 (10:22)
[2021-03-23] MEDS ORDERED: Pneumococcal Polyvalent-23 Vaccine 0.5 ML SDV IM ONE (10:45)
--- NOTE | 2021-03-23 10:46 | PCM.DCSUM1 ---
Discharge Summary - Hospital Course Brief History: Ms. Elliott is a 40-year-old woman who was admitted to observation status through the emergency department for further management of hypoxemia secondary to obesity hypoventilation syndrome - Discharge Data Discharge Date: 03/23/21 Discharge Disposition: Home, W Home Health Agency 06 Condition: Fair - Referral to Home Health Date of Face to Face Encounter: 03/23/21 Reason for Homebound Status: Obesity related hypoventilation with hypoxemia, generalized weakness Primary Care Physician: Abdifatah Aguirre MD Skilled Need: Obesity related hypoventilation with hypoxemia, generalized weakness - Discharge Diagnosis/Problem(s) (1) Hypoxia SNOMED Code(s): 775631254 ICD Code: R09.02 - HYPOXEMIA Status: Acute Current Visit: Yes (2) Hypoventilation associated with obesity SNOMED Code(s): 799166272 ICD Code: E66.2 - MORBID (SEVERE) OBESITY WITH ALVEOLAR HYPOVENTILATION Status: Acute Current Visit: Yes Qualifiers: Obesity classification: adult class 3 (BMI >= 40) Body mass index: BMI 70 or greater (3) Schizophrenia SNOMED Code(s): 40430854 ICD Code: F20.9 - SCHIZOPHRENIA, UNSPECIFIED Status: Chronic Priority: Low Current Visit: Yes Qualifiers: Schizophrenia type: unspecified Qualified Code(s): F20.9 - Schizophrenia, unspecified (4) Morbid obesity SNOMED Code(s): 811836004 ICD Code: E66.01 - MORBID (SEVERE) OBESITY DUE TO EXCESS CALORIES Status: Chronic Current Visit: No - Patient Summary/Data Consults: Consultations 03/21/21 22:33 Consult to Case Management/Editing Computer Publisher [CONS] Routine Comment: Physician Instructions: Service(s) to be Consulted: Case Management Reason for Consult: home oxygen Case Management Specialty/Editing Computer Publisher: Case Management Hospital Course: Ms. Elliott is a 40-year-old female who was admitted to observation status through the emergency department for further management of hypoxemia secondary to obesity hypoventilation syndrome. She denied new symptoms of shortness of breath. She had been evaluated at home by her home health care nurse and was found to be hypoxic. She was also noted to be hypoxic when seen in the emergency department. She was placed on supplemental oxygen with good i mprovement in oxygenation. CT scan of the chest was obtained showing no obvious pulmonary emboli although the study was somewhat limited by motion artifact. She was noted to have an indeterminate pulmonary nodule and will need to have follow-up CT scan for this in 12 months. There were no obvious infiltrates or other significant abnormalities to explain her hypoxia. She is morbidly obese with a BMI of 79. There was some elevation in her carbon dioxide level suggesting that she has developed obesity related hypoventilation with associated hypercapnia. It was in the evening and we were unable to get her arranged for home oxygen so she was admitted to observation status. On admission there was question of possible urinary tract infection and she was started on IV antibiotic therapy with ciprofloxacin. Urine culture returned showing only mixed jasper, ruling out significant infection and antibiotic therapy was discontinued. Blood cultures were obtained in the emergency department and 1 of 3 bottles did grow gram-positive cocci. She had no fevers and no significant elevation of white count. Positive blood culture was felt to represent a contaminant and not a true infection. She will be discharged home with supplemental oxygen 2 L/min via nasal cannula. Consider scheduling a sleep study for evaluation of probable sleep apnea. Activity will be as tolerated and she will resume her usual diet. Home care services will be arranged for her after discharge. Follow-up appointment with her primary care provider will be scheduled within 1 week. - Patient Instructions Diet: Usual Diet as Tolerated Activity: As Tolerated Other/Special Instructions: Please schedule follow-up appointment with primary care provider within 1 week. - Discharge Plan *PRESCRIPTION DRUG MONITORING PROGRAM REVIEWED*: Not Applicable *COPY OF PRESCRIPTION DRUG MONITORING REPORT IN PATIENT BETZY: Not Applicable Home Medications: Home Meds Gabapentin [Neurontin] 300 mg PO BEDTIME 11/06/16 [History] Lurasidone HCl [Latuda] 40 mg PO DAILY 11/06/16 [History] Omeprazole 20 mg PO DAILY 11/06/16 [History] Sertraline [Zoloft] 150 mg PO BEDTIME 11/06/16 [History] buPROPion [buPROPion XL] 150 mg PO DAILY 11/06/16 [History] Metoprolol Succinate 25 mg PO DAILY 07/15/18 [History] Prazosin [Minpress] 5 mg PO BEDTIME 07/15/18 [History] Zolpidem Tartrate [Ambien] 10 mg PO BEDTIME 07/15/18 [History] clonazePAM [Klonopin] 1 mg PO BID 07/15/18 [History] Albuterol [Ventolin HFA] 2 puff INH Q4H PRN 07/27/18 [History] Naproxen 500 mg PO BID PRN 09/07/18 [History] OLANZapine [ZyPREXA] 1 tab PO DAILY PRN 02/14/19 [History] Acyclovir [Zovirax 5% Oint] 1 applic TOP Q3H PRN 02/21/19 [History] Etonogestrel [Nexplanon] 68 mg SQ Q36M 02/21/19 [History] Ibuprofen [Motrin] 600 mg PO TID PRN #30 tab 02/21/19 [Rx] Triamcinolone Acetonide [Kenalog 0.1% Crm] 1 applic TOP BID PRN 02/21/19 [History] Sennosides/Docusate Sodium [Stool Softener-Laxative] 2 tab PO BID PRN 05/13/19 [History] Oxygen Therapy Mode: Nasal Cannula Oxygen Flow Rate (L/min): 2 Patient Handouts: Shortness of Breath, Adult, [id number], Home Oxygen Use, Adult Referrals: Abdifatah Aguirre MD [Primary Care Provider] - 03/29/21 1:30 pm (Please arrive 15 minutes early to register for your appointment.) - Discharge Summary/Plan Comment DC Time >30 min.: No - Patient Data Vitals - Most Recent: Last Vital Signs Temp 98.7 F 03/23/21 07:41 Pulse 89 03/23/21 08:39 Resp 16 03/23/21 07:41 BP 138/77 03/23/21 08:39 Pulse Ox 91 L 03/23/21 08:36 Weight - Most Recent: 462 lb 7.983 oz I&O - Last 24 hours: Intake & Output 03/22/21 03/23/21 03/23/21 22:59 06:59 14:59 Intake Total 180 900 Balance 180 900 MED Results - Last 24 hrs: Microbiology 03/21/21 15:30 Aerobic Blood Culture - Preliminary Blood - Arm, Right 03/21/21 21:28 Urine Culture - Preliminary Urine, Clean Catch MIXED POSITIVE JASPER DAY 1 03/21/21 15:30 Aerobic Blood Culture - Preliminary Blood - Arm, Left NO GROWTH AFTER 1 DAY Anaerobic Blood Culture - Preliminary NO GROWTH AFTER 1 DAY Med Orders - Current: Current Medications Acetaminophen (Acetaminophen 325 Mg Tab) 650 mg PO Q4H PRN PRN Reason: Pain (Mild 1-3)/fever Last Admin: 03/23/21 10:17 Dose: 650 mg Documented by: Albuterol (Albuterol 8 Gm Inhaler) 0 gm INH Q4H PRN PRN Reason: sob Albuterol/Ipratropium (Albuterol/Ipratropium 3.0-0.5 Mg/3 Ml Neb Soln) 3 ml NEB QIDRT [facility] Last Admin: 03/23/21 07:47 Dose: 3 ml Documented by: Bisacodyl (Bisacodyl 5 Mg Tab) 5 mg PO DAILY PRN PRN Reason: Constipation Bupropion HCl (Bupropion 150 Mg Tab.Er) 150 mg PO DAILY [facility] Last Admin: 03/23/21 08:39 Dose: 150 mg Documented by: Clonazepam (Clonazepam 1 Mg Tab) 1 mg PO BID [facility] Last Admin: 03/23/21 08:41 Dose: 1 mg Documented by: Docusate Sodium (Docusate Sodium 100 Mg Cap) 100 mg PO BID PRN PRN Reason: Constipation Enoxaparin Sodium (Enoxaparin 40 Mg/0.4 Ml Syringe) 40 mg SUBCUT BEDTIME [facility] Last Admin: 03/22/21 21:17 Dose: 40 mg Documented by: Gabapentin (Gabapentin 300 Mg Cap) 300 mg PO BEDTIME [facility] Last Admin: 03/22/21 21:18 Dose: 300 mg Documented by: Ibuprofen (Ibuprofen 600 Mg Tab) 600 mg PO TID PRN PRN Reason: Pain Lorazepam (Lorazepam 2 Mg/Ml Sdv) 1 mg IV Q6H PRN PRN Reason: Anxiety Lurasidone HCl (Lurasidone 40 Mg Tab) 40 mg PO DAILY@0800 [facility] Last Admin: 03/23/21 07:57 Dose: 40 mg Documented by: Metoprolol Succinate (Metoprolol Succinate 25 Mg Tab.Er) 25 mg PO DAILY [facility] Last Admin: 03/23/21 08:39 Dose: 25 mg Documented by: Morphine Sulfate (Morphine 2 Mg/Ml Syringe) 2 mg IVPUSH Q2H PRN PRN Reason: Pain (severe 7-10) Nystatin (Nystatin Topical Powder 15 Gm Bottle) 0 gm TOP QID [facility] Last Admin: 03/23/21 10:18 Dose: 1 applic Documented by: Olanzapine (Olanzapine 5 Mg Tab) 5 mg PO DAILY PRN PRN Reason: Agitation Ondansetron HCl (Ondansetron 4 Mg Tab.Dis) 4 mg PO Q6H PRN PRN Reason: Nausea able to take PO Oxycodone HCl (Oxycodone 5 Mg Tab) 5 mg PO Q4H PRN PRN Reason: Pain (moderate 4-6) Pantoprazole Sodium (Pantoprazole 40 Mg Tab.Cr) 40 mg PO ACBREAKFAST [facility] Last Admin: 03/23/21 07:57 Dose: 40 mg Documented by: Pneumococcal Polyvalent Vaccine (Pneumococcal Polyvalent-23 Vaccine 0.5 Ml Sdv) 0.5 ml IM .ONCE ONE Stop: 03/23/21 10:46 Prazosin HCl (Prazosin 1 Mg Cap) 5 mg PO BEDTIME [facility] Last Admin: 03/22/21 21:20 Dose: 5 mg Documented by: Senna/Docusate Sodium (Docusate Sodium/Sennosides 50-8.6 Mg Tab) 2 tab PO BID PRN PRN Reason: Constipation Sertraline HCl (Sertraline 50 Mg Tab) 150 mg PO BEDTIME [facility] Last Admin: 03/22/21 21:18 Dose: 150 mg Documented by: Sodium Chloride (Sodium Chloride 0.9% 10 Ml Syringe) 10 ml FLUSH ASDIRECTED PRN PRN Reason: Keep Vein Open Last Admin: 03/21/21 17:31 Dose: 10 ml Documented by: Triamcinolone Acetonide (Triamcinolone Acetonide 0.1% Crm 80 Gm Tube) 1 gm TOP BID PRN PRN Reason: Rash Zolpidem Tartrate (Zolpidem 5 Mg Tab) 10 mg PO BEDTIME [facility] Last Admin: 03/22/21 21:17 Dose: 10 mg Documented by: Discontinued Medications Albuterol/Ipratropium (Albuterol/Ipratropium 3.0-0.5 Mg/3 Ml Neb Soln) 3 ml NEB ONETIME ONE Stop: 03/21/21 16:47 Last Admin: 03/21/21 21:25 Dose: 3 ml Documented by: Albuterol/Ipratropium (Albuterol/Ipratropium 3.0-0.5 Mg/3 Ml Neb Soln) Confirm Administered Dose 3 ml .ROUTE .STK-MED ONE Stop: 03/21/21 21:24 Last Admin: 03/21/21 22:12 Dose: Not Given Documented by: Albuterol/Ipratropium (Albuterol/Ipratropium 3.0-0.5 Mg/3 Ml Neb Soln) 3 ml NEB QID [facility] Last Admin: 03/22/21 05:02 Dose: 3 ml Documented by: Clonazepam (Clonazepam 1 Mg Tab) 1 mg PO BEDTIME ONE Stop: 03/21/21 21:06 Last Admin: 03/21/21 21:25 Dose: 1 mg Documented by: Enoxaparin Sodium (Enoxaparin 40 Mg/0.4 Ml Syringe) 40 mg SUBCUT DAILY [facility] Last Admin: 03/21/21 22:58 Dose: 40 mg Documented by: Gabapentin (Gabapentin 300 Mg Cap) 300 mg PO ONETIME ONE Stop: 03/21/21 20:59 Last Admin: 03/21/21 21:25 Dose: 300 mg Documented by: Sodium Chloride (Normal Saline) 1,000 mls @ 500 mls/hr IV ASDIRECTED [facility] Last Admin: 03/21/21 22:12 Dose: 500 mls/hr Documented by: Sodium Chloride (Normal Saline) 100 mls @ 4 mls/sec IV ASDIRECTED [facility] Stop: 03/21/21 21:00 Last Admin: 03/21/21 17:31 Dose: 4 mls/sec Documented by: Ciprofloxacin/Dextrose 400 mg/ (Premix) 200 mls @ 200 mls/hr IV Q12H [facility] Last Admin: 03/23/21 10:22 Dose: Not Given Documented by: Sodium Chloride (Normal Saline) 1,000 mls @ 125 mls/hr IV ASDIRECTED [facility] Last Admin: 03/22/21 05:03 Dose: 125 mls/hr Documented by: Iopamidol (Iopamidol 755 Mg/Ml 100 Ml Bottle) 100 ml IV . DIRECTED [facility] Stop: 03/21/21 21:00 Last Admin: 03/21/21 17:31 Dose: 100 ml Documented by: Nystatin (Nystatin Topical Powder 15 Gm Bottle) 0 gm TOP QID [facility] Last Admin: 03/23/21 05:58 Dose: 1 applic Documented by: Prazosin HCl (Prazosin 1 Mg Cap) 5 mg PO BEDTIME [facility] Last Admin: 03/21/21 21:25 Dose: 5 mg Documented by: Sertraline HCl (Sertraline 50 Mg Tab) 150 mg PO ONETIME ONE Stop: 03/21/21 21:00 Last Admin: 03/21/21 21:43 Dose: 150 mg Documented by: Sodium Chloride (Sodium Chloride 0.9% 10 Ml Syringe) 10 ml FLUSH ONETIME ONE Stop: 03/21/21 17:11 Last Admin: 03/21/21 22:14 Dose: 10 ml Documented by: - Exam Quality Assessment: Reports: Supplemental Oxygen General: Reports: Alert, Oriented, Cooperative, No Acute Distress Lungs: Reports: Clear to Auscultation, Normal Respiratory Effort, Decreased Breath Sounds Cardiovascular: Reports: Regular Rate, Regular Rhythm, No Murmurs GI/Abdominal Exam: Soft, Non-Tender, No Organomegaly, No Distention Extremities: Non-Tender, No Pedal Edema
== END 2021-03-23 11:59 | disposition home health service (06) ==
LOC: JP.ED 14:14 → JP.MS 21:40
PROVIDERS: ADMIT Hospitalist; ATTEND Hospitalist
DX: R09.02 Hypoxemia (principal); E66.2 Morbid (severe) obesity with alveolar hypoventilation; F20.9 Schizophrenia, unspecified; Z23 Encounter for immunization; I10 Essential (primary) hypertension; J45.909 Unspecified asthma, uncomplicated; Z20.822 Contact with and (suspected) exposure to COVID-19; N39.0 Urinary tract infection, site not specified; R31.9 Hematuria, unspecified; Z68.45 Body mass index [BMI] 70 or greater, adult; Z88.0 Allergy status to penicillin; Z88.1 Allergy status to other antibiotic agents; Z79.899 Other long term (current) drug therapy
CPT/HCPCS: 0241U; 36415; 71045; 71275; 80048; 80053; 81001; 83605; 83880; 84145; 84484; 85025; 85379; 86140; 87040; 87077; 87086; 87186; 90732; 94640; 94762; A9270; G0009; J0744; J1650; J7030; Q9967; 96365; 96366; 96372; 99285-25; G0378; J7620-GY

== ENCOUNTER 2021-04-11 08:29 | Emergency (ER) | payer MEDICARE, MEDICAID ==
[2021-04-11] MEDS ORDERED: Sodium Chloride 0.9% 10 ML Syringe FLUSH PRN (08:53)
--- NOTE | 2021-04-11 08:58 | EDM.PDOC ---
ED HPI GENERAL MEDICAL PROBLEM - General Chief Complaint: Respiratory Problem Stated Complaint: SHORT NESS OF BREATH Time Seen by Provider: 04/11/21 08:47 Source of Information: Reports: Patient, RN Notes Reviewed History Limitations: Reports: Respiratory Distress - History of Present Illness INITIAL COMMENTS - FREE TEXT/NARRATIVE: 40-year-old female presents emergency department today complaint of fever and increasing shortness of breath. She has a known history of hypoxic hypoventilation syndrome associated with obesity, last hospitalization she was started on home oxygen usually uses about 3 L continuous. She states over the last couple days she has had a fever at home up to 101 denies any exposures has had increased wheezing and cough increasing shortness of breath. Was brought in by EMS services per report from EMS staff audibly wheezing at presentation was given DuoNeb treatment which states did help wheezing improved. 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 only to speak in 2 and 3 word sentences Treatments GROUP PRACTICE PEDIATRICIAN: Reports: Oxygen, Other (see below) Other Treatments GROUP PRACTICE PEDIATRICIAN: nebs albuterol and duo - Related Data Allergies Allergy/AdvReac Type Severity Reaction Status Date / Time amoxicillin Allergy Hives Verified 04/11/21 08:42 Penicillins Allergy Hives Verified 04/11/21 08:42 Home Meds: Home Meds Gabapentin [Neurontin] 300 mg PO BEDTIME 11/06/16 [History] Lurasidone HCl [Latuda] 40 mg PO DAILY 11/06/16 [History] Omeprazole 20 mg PO DAILY 11/06/16 [History] Sertraline [Zoloft] 150 mg PO BEDTIME 11/06/16 [History] buPROPion [buPROPion XL] 150 mg PO DAILY 11/06/16 [History] Metoprolol Succinate 25 mg PO DAILY 07/15/18 [History] Prazosin [Minpress] 5 mg PO BEDTIME 07/15/18 [History] Zolpidem Tartrate [Ambien] 10 mg PO BEDTIME 07/15/18 [History] clonazePAM [Klonopin] 1 mg PO BID 07/15/18 [History] Albuterol [Ventolin HFA] 2 puff INH Q4H PRN 07/27/18 [History] Naproxen 500 mg PO BID PRN 09/07/18 [History] OLANZapine [ZyPREXA] 1 tab PO DAILY PRN 02/14/19 [History] Acyclovir [Zovirax 5% Oint] 1 applic TOP Q3H PRN 02/21/19 [History] Etonogestrel [Nexplanon] 68 mg SQ Q36M 02/21/19 [History] Ibuprofen [Motrin] 600 mg PO TID PRN #30 tab 02/21/19 [Rx] Triamcinolone Acetonide [Kenalog 0.1% Crm] 1 applic TOP BID PRN 02/21/19 [History] Sennosides/Docusate Sodium [Stool Softener-Laxative] 2 tab PO BID PRN 05/13/19 [History] Past Medical History HEENT History: Reports: Impaired Vision Cardiovascular History: Reports: Hypertension Respiratory History: Reports: Asthma, SOB, Other (See Below) (Hypoxic hypoven tilation syndrome associated with obesity) Other Respiratory History: On home oxygen at 3L Gastrointestinal History: Reports: GERD, Other (See Below) Other Gastrointestinal History: stomach ulcers. Psychiatric History: Reports: Anxiety, Depression, Hallucinations, Psych Hospitalization(s), Schizophrenia, Suicidal Ideation, Other (See Below) Other Psychiatric History: SEEING THINGS AND HEARING THINGS Endocrine/Metabolic History: Reports: Obesity/BMI 30+ Hematologic History: Reports: Iron Deficiency Dermatologic History: Reports: Other (See Below) Other Dermatologic History: "lymphedema in legs" - Infectious Disease History Infectious Disease History: Reports: Chicken Pox - Past Surgical History Head Surgeries/Procedures: Reports: None HEENT Surgical History: Reports: None Cardiovascular Surgical History: Reports: None Respiratory Surgical History: Reports: None GI Surgical History: Reports: Cholecystectomy, Colonoscopy Endocrine Surgical History: Reports: None Neurological Surgical History: Reports: None Dermatological Surgical History: Reports: None Social & Family History - Family History Family Medical History: No Pertinent Family History - Tobacco Use Tobacco Use Status *Q: Former Tobacco User Used Tobacco, but Quit: Yes Month/Year Tobacco Last Used: 15 years - Caffeine Use Caffeine Use: Reports: Tea - Recreational Drug Use Recreational Drug Use: No - Living Situation & Occupation Living situation: Reports: with Significant Other (lives with Primitivo Benedict for the past 16 years, no children.) Occupation: Disabled (lives with Boyfriend in [place], [place].) ED ROS GENERAL - Review of Systems Review Of Systems: See Below Constitutional: Reports: Fever, Weakness, Fatigue HEENT: Reports: No Symptoms Respiratory: Reports: Shortness of Breath, Wheezing, Cough Cardiovascular: Reports: Dyspnea on Exertion GI/Abdominal: Reports: No Symptoms Musculoskeletal: Reports: No Symptoms Neurological: Reports: No Symptoms ED EXAM, GENERAL - Physical Exam Exam: See Below Exam Limited By: Respiratory Distress General Appearance: Alert, Moderate Distress Respiratory/Chest: Respiratory Distress, Decreased Breath Sounds, Wheezing, Accessory Muscle Use. No: Crackles, Rhonchi Cardiovascular: No Murmur, Tachycardia GI/Abdominal: Soft, Non-Tender #1 Interpretation EKG Date: 04/11/21 Time: 10:53 Rhythm: Other (Sinus tachycardia) Rate (Beats/Min): 104 [place]: RAD-Right [place] Deviation P-Wave: Present QRS: Normal ST-T: Normal QT: Normal Comparison: Change From Previous EKG Course - Vital Signs Last Recorded V/S: Last Vital Signs Temp 98.3 F 04/11/21 14:00 Pulse 104 H 04/11/21 14:00 Resp 16 04/11/21 14:00 BP 115/52 L 04/11/21 14:00 Pulse Ox 92 L 04/11/21 14:00 - Orders/Labs/Meds Orders: Active Orders 24 hr Category Date Time Status Cardiac Monitoring [RC] STAT Care 04/11/21 13:34 Active Communication Order [RC] Per Unit Routine Care 04/11/21 13:34 Active Communication Order [RC] Per Unit Routine Care 04/11/21 13:34 Active EKG Documentation Completion [RC] ASDIRECTED Care 04/11/21 10:04 Active Oxygen Therapy [RC] ASDIRECTED Care 04/11/21 13:34 Active Peripheral IV Care [RC] . DIRECTED Care 04/11/21 08:53 Active Vital Signs [RC] Q1H Care 04/11/21 08:51 Active Echo Comp wo Cont [US] Routine Exams 04/12/21 08:00 Ordered CULTURE BLOOD [BC] Urgent Lab 04/11/21 09:00 Received CULTURE BLOOD [BC] Urgent Lab 04/11/21 09:10 Received Heparin Sodium/D5W [Heparin 25,000 Units in D5W 500 ML] Med 04/11/21 13:45 Active 25,000 units in 500 ml IV TITRATE Iopamidol [Isovue-370 (76%)] Med 04/11/21 11:30 Active 100 ml IV . DIRECTED Levofloxacin/Dextrose 5%-Water [Levaquin in D5W 750 MG/ Med 04/11/21 09:00 Active 150 ML] 750 mg Premix Bag 1 bag IV Q24H Sodium Chloride 0.9% [Normal Saline] 100 ml Med 04/11/21 11:30 Active IV ASDIRECTED Sodium Chloride 0.9% [Saline Flush] Med 04/11/21 08:53 Active 10 ml FLUSH ASDIRECTED PRN Sodium Chloride 0.9% [Saline Flush] Med 04/11/21 08:53 Active 10 ml FLUSH ASDIRECTED PRN Blood Culture x2 Reflex Set [OM.PC] Urgent Oth 04/11/21 08:51 Ordered Isolation [COMM] Stat Oth 04/11/21 08:53 Ordered Peripheral IV Insertion Adult [OM.PC] Urgent Oth 04/11/21 08:53 Ordered Saline Lock Insert [OM.PC] Stat Oth 04/11/21 08:53 Ordered Severe Sepsis Onset Time [OM.PC] Stat Oth 04/11/21 08:53 Ordered EKG 12 Lead [EK] Stat Ther 04/11/21 10:04 Ordered Medication Orders Levofloxacin/Dextrose 750 mg/ (Premix) 150 mls @ 100 mls/hr IV Q24H BERNARDO Last Admin: 04/11/21 09:11 Dose: 100 mls/hr Documented by: PREILOR Sodium Chloride (Normal Saline) 100 mls @ 3 mls/sec IV ASDIRECTED BERNARDO Last Admin: 04/11/21 12:01 Dose: 4 mls/sec Documented by: KAYLEN Heparin Sodium/Dextrose (Heparin 25,000 Units In D5w 500 Ml) 25,000 units in 500 mls @ 48.288 mls/hr IV TITRATE BERNARDO; Protocol Last Admin: 04/11/21 14:50 Dose: 12 units/kg/hr, 48.288 mls/hr Documented by: PREILOR Cosigned by: TAMY Iopamidol (Iopamidol 755 Mg/Ml 100 Ml Bottle) 100 ml IV . DIRECTED BERNARDO Last Admin: 04/11/21 12:01 Dose: 100 ml Documented by: [email or web address] Sodium Chloride (Sodium Chloride 0.9% 10 Ml Syringe) 10 ml FLUSH ASDIRECTED PRN PRN Reason: Keep Vein Open Last Admin: 04/11/21 12:01 Dose: 10 ml Documented by: Admin: 04/11/21 09:13 Dose: 10 ml Documented by: PREILOR Sodium Chloride (Sodium Chloride 0.9% 10 Ml Syringe) 10 ml FLUSH ASDIRECTED PRN PRN Reason: Keep Vein Open Last Admin: 04/11/21 09:13 Dose: 10 ml Documented by: PREILOR Labs: Laboratory Tests 04/11/21 04/11/21 04/11/21 Range/Units 08:53 08:58 09:10 WBC 8.8 (4.5-11.0) K/uL RBC 5.11 (3.30-5.50) M/uL Hgb 13.2 (12.0-15.0) g/dL Hct 46.1 (36.0-48.0) % MCV 90 (80-98) fL MCH 26 L (27-31) pg MCHC 29 L (32-36) % Plt Count 266 (150-400) K/uL Add Manual Diff Yes Neutrophils % (Manual) 81 H (36-66) % Lymphocytes % (Manual) 10 L (24-44) % Monocytes % (Manual) 7 H (2-6) % Eosinophils % (Manual) 2 (2-4) % Basophils % (Manual) 0 (0-1) % Hypochromasia Few PT (9.5-12.0) sec INR (0.80-1.20) APTT (27.0-36.0) sec Sodium (140-148) mmol/L Potassium (3.6-5.2) mmol/L Chloride (100-108) mmol/L Carbon Dioxide (21-32) mmol/L Anion Gap (5.0-14.0) mmol/L BUN (7-18) mg/dL Creatinine (0.6-1.0) mg/dL Est Cr Clr Drug Dosing mL/min Estimated GFR (MDRD) (>60) Glucose (74-106) mg/dL Lactic Acid (0.4-2.0) mmol/L Calcium (8.5-10.1) mg/dL Total Bilirubin (0.2-1.0) mg/dL AST (15-37) U/L ALT (12-78) U/L Alkaline Phosphatase (46-116) U/L Troponin I 0.331 H* (0.000-0.056) ng/mL C-Reactive Protein (0.0-0.3) mg/dL NT-Pro-B Natriuret Pep (5-125) pg/mL Total Protein (6.4-8.2) g/dL Albumin (3.4-5.0) g/dL Globulin (2.3-3.5) g/dL Albumin/Globulin Ratio (1.2-2.2) Procalcitonin ng/mL Urine Color (YELLOW) Urine Appearance (CLEAR) Urine pH (5.0-8.0) Ur Specific [place] (1.008-1.030) Urine Protein (NEGATIVE) mg/dL Urine Glucose (UA) (NEGATIVE) mg/dL Urine Ketones (NEGATIVE) mg/dL Urine Occult Blood (NEGATIVE) Urine Nitrite (NEGATIVE) Urine Bilirubin (NEGATIVE) Urine Urobilinogen (0.2-1.0) EU/dL Ur Leukocyte Esterase (NEGATIVE) Urine RBC (0-5) Urine WBC (0-5) Ur Epithelial Cells Amorphous Sediment Urine Bacteria Urine Mucus Influenza Type A RNA Negative (NEGATIVE) RSV RNA (INAAT) Negative (NEGATIVE) Influenza Type B RNA Negative (NEGATIVE) SARS-CoV-2 RNA (FADIA) Negative (NEGATIVE) 04/11/21 04/11/21 04/11/21 Range/Units 09:10 09:10 09:10 WBC (4.5-11.0) K/uL RBC (3.30-5.50) M/uL Hgb (12.0-15.0) g/dL Hct (36.0-48.0) % MCV (80-98) fL MCH (27-31) pg MCHC (32-36) % Plt Count (150-400) K/uL Add Manual Diff Neutrophils % (Manual) (36-66) % Lymphocytes % (Manual) (24-44) % Monocytes % (Manual) (2-6) % Eosinophils % (Manual) (2-4) % Basophils % (Manual) (0-1) % Hypochromasia PT (9.5-12.0) sec INR (0.80-1.20) APTT (27.0-36.0) sec Sodium 138 L (140-148) mmol/L Potassium 4.4 (3.6-5.2) mmol/L Chloride 96 L (100-108) mmol/L Carbon Dioxide 38 H (21-32) mmol/L Anion Gap 8.4 (5.0-14.0) mmol/L BUN 12 (7-18) mg/dL Creatinine 0.9 (0.6-1.0) mg/dL Est Cr Clr Drug Dosing 73.72 mL/min Estimated GFR (MDRD) > 60 (>60) Glucose 122 H (74-106) mg/dL Lactic Acid 0.9 (0.4-2.0) mmol/L Calcium 8.8 (8.5-10.1) mg/dL Total Bilirubin 0.9 (0.2-1.0) mg/dL AST 21 (15-37) U/L ALT 27 (12-78) U/L Alkaline Phosphatase 77 (46-116) U/L Troponin I (0.000-0.056) ng/mL C-Reactive Protein 17.13 H (0.0-0.3) mg/dL NT-Pro-B Natriuret Pep (5-125) pg/mL Total Protein 8.0 (6.4-8.2) g/dL Albumin 2.8 L (3.4-5.0) g/dL Globulin 5.2 H (2.3-3.5) g/dL Albumin/Globulin Ratio 0.5 L (1.2-2.2) Procalcitonin 0.10 ng/mL Urine Color (YELLOW) Urine Appearance (CLEAR) Urine pH (5.0-8.0) Ur Specific [place] (1.008-1.030) Urine Protein (NEGATIVE) mg/dL Urine Glucose (UA) (NEGATIVE) mg/dL Urine Ketones (NEGATIVE) mg/dL Urine Occult Blood (NEGATIVE) Urine Nitrite (NEGATIVE) Urine Bilirubin (NEGATIVE) Urine Urobilinogen (0.2-1.0) EU/dL Ur Leukocyte Esterase (NEGATIVE) Urine RBC (0-5) Urine WBC (0-5) Ur Epithelial Cells Amorphous Sediment Urine Bacteria Urine Mucus Influenza Type A RNA (NEGATIVE) RSV RNA (INAAT) (NEGATIVE) Influenza Type B RNA (NEGATIVE) SARS-CoV-2 RNA (FADIA) (NEGATIVE) 04/11/21 04/11/21 04/11/21 Range/Units 10:12 10:25 13:34 WBC (4.5-11.0) K/uL RBC (3.30-5.50) M/uL Hgb (12.0-15.0) g/dL Hct (36.0-48.0) % MCV (80-98) fL MCH (27-31) pg MCHC (32-36) % Plt Count (150-400) K/uL Add Manual Diff Neutrophils % (Manual) (36-66) % Lymphocytes % (Manual) (24-44) % Monocytes % (Manual) (2-6) % Eosinophils % (Manual) (2-4) % Basophils % (Manual) (0-1) % Hypochromasia PT 12.4 H (9.5-12.0) sec INR 1.14 (0.80-1.20) APTT (27.0-36.0) sec Sodium (140-148) mmol/L Potassium (3.6-5.2) mmol/L Chloride (100-108) mmol/L Carbon Dioxide (21-32) mmol/L Anion Gap (5.0-14.0) mmol/L BUN (7-18) mg/dL Creatinine (0.6-1.0) mg/dL Est Cr Clr Drug Dosing mL/min Estimated GFR (MDRD) (>60) Glucose (74-106) mg/dL Lactic Acid (0.4-2.0) mmol/L Calcium (8.5-10.1) mg/dL Total Bilirubin (0.2-1.0) mg/dL AST (15-37) U/L ALT (12-78) U/L Alkaline Phosphatase (46-116) U/L Troponin I (0.000-0.056) ng/mL C-Reactive Protein (0.0-0.3) mg/dL NT-Pro-B Natriuret Pep 4950 H (5-125) pg/mL Total Protein (6.4-8.2) g/dL Albumin (3.4-5.0) g/dL Globulin (2.3-3.5) g/dL Albumin/Globulin Ratio (1.2-2.2) Procalcitonin ng/mL Urine Color Brown A (YELLOW) Urine Appearance Turbid A (CLEAR) Urine pH 6.5 (5.0-8.0) Ur Specific [place] >= 1.030 (1.008-1.030) Urine Protein 100 H (NEGATIVE) mg/dL Urine Glucose (UA) Negative (NEGATIVE) mg/dL Urine Ketones Negative (NEGATIVE) mg/dL Urine Occult Blood Large H (NEGATIVE) Urine Nitrite Negative (NEGATIVE) Urine Bilirubin Moderate H (NEGATIVE) Urine Urobilinogen 4.0 H (0.2-1.0) EU/dL Ur Leukocyte Esterase Trace H (NEGATIVE) Urine RBC 75-100 H (0-5) Urine WBC 10-20 H (0-5) Ur Epithelial Cells Many Amorphous Sediment Many Urine Bacteria Many Urine Mucus Moderate Influenza Type A RNA (NEGATIVE) RSV RNA (INAAT) (NEGATIVE) Influenza Type B RNA (NEGATIVE) SARS-CoV-2 RNA (FADIA) (NEGATIVE) 04/11/21 04/11/21 Range/Units 13:35 13:36 WBC (4.5-11.0) K/uL RBC (3.30-5.50) M/uL Hgb (12.0-15.0) g/dL Hct (36.0-48.0) % MCV (80-98) fL MCH (27-31) pg MCHC (32-36) % Plt Count (150-400) K/uL Add Manual Diff Neutrophils % (Manual) (36-66) % Lymphocytes % (Manual) (24-44) % Monocytes % (Manual) (2-6) % Eosinophils % (Manual) (2-4) % Basophils % (Manual) (0-1) % Hypochromasia PT (9.5-12.0) sec INR (0.80-1.20) APTT 30.8 (27.0-36.0) sec Sodium (140-148) mmol/L Potassium (3.6-5.2) mmol/L Chloride (100-108) mmol/L Carbon Dioxide (21-32) mmol/L Anion Gap (5.0-14.0) mmol/L BUN (7-18) mg/dL Creatinine (0.6-1.0) mg/dL Est Cr Clr Drug Dosing mL/min Estimated GFR (MDRD) (>60) Glucose (74-106) mg/dL Lactic Acid (0.4-2.0) mmol/L Calcium (8.5-10.1) mg/dL Total Bilirubin (0.2-1.0) mg/dL AST (15-37) U/L ALT (12-78) U/L Alkaline Phosphatase (46-116) U/L Troponin I 0.274 H* (0.000-0.056) ng/mL C-Reactive Protein (0.0-0.3) mg/dL NT-Pro-B Natriuret Pep (5-125) pg/mL Total Protein (6.4-8.2) g/dL Albumin (3.4-5.0) g/dL Globulin (2.3-3.5) g/dL Albumin/Globulin Ratio (1.2-2.2) Procalcitonin ng/mL Urine Color (YELLOW) Urine Appearance (CLEAR) Urine pH (5.0-8.0) Ur Specific [place] (1.008-1.030) Urine Protein (NEGATIVE) mg/dL Urine Glucose (UA) (NEGATIVE) mg/dL Urine Ketones (NEGATIVE) mg/dL Urine Occult Blood (NEGATIVE) Urine Nitrite (NEGATIVE) Urine Bilirubin (NEGATIVE) Urine Urobilinogen (0.2-1.0) EU/dL Ur Leukocyte Esterase (NEGATIVE) Urine RBC (0-5) Urine WBC (0-5) Ur Epithelial Cells Amorphous Sediment Urine Bacteria Urine Mucus Influenza Type A RNA (NEGATIVE) RSV RNA (INAAT) (NEGATIVE) Influenza Type B RNA (NEGATIVE) SARS-CoV-2 RNA (FADIA) (NEGATIVE) Meds: Medications Generic Name Dose Route Start Last Admin Trade Name Freq PRN Reason Stop Dose Admin Levofloxacin/Dextrose 750 mg/ 150 mls @ 100 mls/hr 04/11/21 09:00 04/11/21 09:11 Premix IV 100 mls/hr Q24H BERNARDO Administration Sodium Chloride 100 mls @ 3 mls/sec 04/11/21 11:30 04/11/21 12:01 Normal Saline IV 4 mls/sec ASDIRECTED BERNARDO Administration Heparin Sodium/Dextrose 25,000 units in 500 mls @ 48.288 mls/hr 04/11/21 13:45 04/11/21 14:50 Heparin 25,000 Units In D5w 500 Ml IV 12 units/kg/hr TITRATE BERNARDO 48.288 mls/hr Administration Protocol 12 UNITS/KG/HR Iopamidol 100 ml 04/11/21 11:30 04/11/21 12:01 Iopamidol 755 Mg/Ml 100 Ml Bottle IV 100 ml . DIRECTED BERNARDO Administration Sodium Chloride 10 ml 04/11/21 08:53 04/11/21 12:01 Sodium Chloride 0.9% 10 Ml Syringe FLUSH 10 ml ASDIRECTED PRN Administration Keep Vein Open Sodium Chloride 10 ml 04/11/21 08:53 04/11/21 09:13 Sodium Chloride 0.9% 10 Ml Syringe FLUSH 10 ml ASDIRECTED PRN Administration Keep Vein Open Discontinued Medications Generic Name Dose Route Start Last Admin Trade Name Freq PRN Reason Stop Dose Admin Aspirin 324 mg 04/11/21 11:21 04/11/21 14:39 Aspirin 81 Mg Tab.Chew PO 04/11/21 11:22 324 mg ONETIME ONE Administration Aspirin Confirm 04/11/21 14:35 Aspirin 81 Mg Tab.Chew Administered 04/11/21 14:36 Dose 324 mg .ROUTE .STK-MED ONE Furosemide 40 mg 04/11/21 10:52 04/11/21 11:13 Furosemide 40 Mg/4 Ml Vial IVPUSH 04/11/21 10:53 40 mg ONETIME ONE Administration Heparin Sodium (Porcine) 4,000 units 04/11/21 13:34 04/11/21 14:40 Heparin Sodium 5,000 Units/Ml Vial IVPUSH 04/11/21 13:35 4,000 units ONETIME ONE Administration Sodium Chloride 10 ml 04/11/21 11:29 Sodium Chloride 0.9% 10 Ml Sdv FLUSH 04/11/21 11:30 ONETIME ONE Ticagrelor 180 mg 04/11/21 13:34 04/11/21 14:40 Ticagrelor 90 Mg Tab PO 04/11/21 13:35 180 mg ONETIME ONE Administration - Re-Assessments/Exams Free Text/Narrative Re-Assessment/Exam: 04/11/21 11:22 Unfortunately we have no beds at our facility, I did discuss the case with Dr. Lal emergency room physician [facility] at 11:15, unfortunately [facility] has no beds at this time either but recommended continued work-up for pulmonary embolism patient was placed on waiting list for transplant 04/11/21 14:58 Contacted [facility] no beds available contacted [facility] no beds available contacted [facility] no beds available at this time Departure - Departure Time of Disposition: 15:51 Disposition: DC/Tfer to Acute Hospital 02 Condition: Poor Clinical Impression: Elevated troponin Congestive heart failure Qualifiers: Heart failure type: unspecified Heart failure chronicity: unspecified Qualified Code(s): I50.9 - Heart failure, unspecified - Discharge Information Referrals: PCP,None [Primary Care Provider] - Forms: ED Department Discharge Sepsis Event Note (ED) - Evaluation Sepsis Screening Result: Possible Sepsis Risk - Focused Exam Vital Signs: Vital Signs Temp Pulse Resp BP Pulse Ox 04/11/21 14:00 98.3 F 104 H 16 115/52 L 92 L 04/11/21 13:00 103 H 40 H 111/75 91 L 04/11/21 12:00 101 H 37 H 109/79 91 L 04/11/21 11:20 103 H 39 H 116/69 91 L 04/11/21 11:00 103 H 37 H 122/71 91 L 04/11/21 10:21 112 H 44 H 129/77 92 L 04/11/21 10:04 105 H 40 H 122/71 91 L 04/11/21 09:22 109 H 33 H 113/78 93 L 04/11/21 08:32 99.9 F 109 H 44 H 126/85 91 L - My Orders Last 24 Hours: My Active Orders 04/11/21 08:51 Vital Signs [RC] Q1H Blood Culture x2 Reflex Set [OM.PC] Urgent 04/11/21 08:53 Peripheral IV Care [RC] . DIRECTED Sodium Chloride 0.9% [Saline Flush] 10 ml FLUSH ASDIRECTED PRN Sodium Chloride 0.9% [Saline Flush] 10 ml FLUSH ASDIRECTED PRN Isolation [COMM] Stat Peripheral IV Insertion Adult [OM.PC] Urgent Saline Lock Insert [OM.PC] Stat Severe Sepsis Onset Time [OM.PC] Stat 04/11/21 09:00 CULTURE BLOOD [BC] Urgent Levofloxacin/Dextrose 5%-Water [Levaquin in D5W 750 MG/150 ML] 750 mg Premix Bag 1 bag IV Q24H 04/11/21 09:10 CULTURE BLOOD [BC] Urgent 04/11/21 10:04 EKG Documentation Completion [RC] ASDIRECTED EKG 12 Lead [EK] Stat 04/11/21 11:30 Iopamidol [Isovue-370 (76%)] 100 ml IV . DIRECTED Sodium Chloride 0.9% [Normal Saline] 100 ml IV ASDIRECTED 04/11/21 13:34 Cardiac Monitoring [RC] STAT Communication Order [RC] Per Unit Routine Communication Order [RC] Per Unit Routine Oxygen Therapy [RC] ASDIRECTED 04/11/21 13:45 Heparin Sodium/D5W [Heparin 25,000 Units in D5W 500 ML] 25,000 units in 500 ml IV TITRATE 04/12/21 08:00 Echo Comp wo Cont [US] Routine - Assessment/Plan Last 24 Hours: My Active Orders 04/11/21 08:51 Vital Signs [RC] Q1H Blood Culture x2 Reflex Set [OM.PC] Urgent 04/11/21 08:53 Peripheral IV Care [RC] . DIRECTED Sodium Chloride 0.9% [Saline Flush] 10 ml FLUSH ASDIRECTED PRN Sodium Chloride 0.9% [Saline Flush] 10 ml FLUSH ASDIRECTED PRN Isolation [COMM] Stat Peripheral IV Insertion Adult [OM.PC] Urgent Saline Lock Insert [OM.PC] Stat Severe Sepsis Onset Time [OM.PC] Stat 04/11/21 09:00 CULTURE BLOOD [BC] Urgent Levofloxacin/Dextrose 5%-Water [Levaquin in D5W 750 MG/150 ML] 750 mg Premix Bag 1 bag IV Q24H 04/11/21 09:10 CULTURE BLOOD [BC] Urgent 04/11/21 10:04 EKG Documentation Completion [RC] ASDIRECTED EKG 12 Lead [EK] Stat 04/11/21 11:30 Iopamidol [Isovue-370 (76%)] 100 ml IV . DIRECTED Sodium Chloride 0.9% [Normal Saline] 100 ml IV ASDIRECTED 04/11/21 13:34 Cardiac Monitoring [RC] STAT Communication Order [RC] Per Unit Routine Communication Order [RC] Per Unit Routine Oxygen Therapy [RC] ASDIRECTED 04/11/21 13:45 Heparin Sodium/D5W [Heparin 25,000 Units in D5W 500 ML] 25,000 units in 500 ml IV TITRATE 04/12/21 08:00 Echo Comp wo Cont [US] Routine Plan: Assessment Acuity = acute Site and laterality = congestive heart failure with elevated troponin non-ST elevation myocardial infarction versus demand ischemia Etiology = unknown Manifestations = hypoxia and dyspnea Location of injury = Home Lab values = CBC unremarkable, CMP unremarkable troponin elevated 0.331 after initial treatment 0.274 BNP markedly elevated 4950 consistent with fluid overload type pattern 1 month ago this value was 115 procalcitonin normal 0.1 CRP elevated 17.13 urinalysis does have 10-20 WBCs consistent with pyuria 70 to 5-100 RBCs consistent with a hematuria however there is a question of this may be contaminated with stool. CT scan describes congestive heart failure no pulmonary embolism was noted, Covid RSV and influenza AMB all negative Plan Call discussed case with Dr. Grant hospitalist at [facility] at [phone] he kindly accepted the patient in transport she will be transported via EMS ground. Thus far she has received aspirin, 4000 unit bolus of heparin is currently on a heparin drip, 180 mg Brilinta, 40 mg Lasix, initially 1 g Rocephin and 500 mg azithromycin blood cultures also pending This note was dictated using [employer] voice recognition software please call with any questions on syntax or grammar.
[2021-04-11] MEDS ORDERED: Levofloxacin/Dextrose 5%-Water 750 MG in Premix Bag 1 BAG IV SCH (09:00)
[2021-04-11] MEDS: Sodium Chloride 0.9% 10 ML Syringe FLUSH PRN ×2 (09:13→12:01)
[2021-04-11 10:00] LABS: CORONAVIRUS COVID-19 NAA NEGATIVE (NEGATIVE)
--- NOTE | 2021-04-11 10:06 | CRLCR ---
For Patients: As a result of the Century Cures Act, medical imaging exams and procedure reports are released immediately into your electronic medical record. You may view this report before your referring provider. If you have questions, please contact your health care provider. INDICATION: Hypoxia TECHNIQUE: Chest 1 views COMPARISON: March 21, 2021 FINDINGS: Cardiovascular and mediastinum: Stable moderate cardiomegaly. Central pulmonary vascular congestion suggested. Lungs and pleural spaces: Lungs are clear. No sign of infiltrate or mass. No sign of pleural effusion. No pneumothorax. Bones and soft tissues: No significant findings. IMPRESSION: CHF without overt edema is suggested. Dictated by Dereje Ortega MD @ 04/11/2021 10:05:[address] Dereje Ortega @ Apr 11 2021 10:05AM
[2021-04-11] MEDS ORDERED: Furosemide 40 MG/4 ML VIAL IVPUSH ONE (10:52)
[2021-04-11] MEDS ORDERED: Aspirin 81 MG Tab.Chew PO ONE (11:21)
[2021-04-11] MEDS ORDERED: Sodium Chloride 0.9% 10 ML SDV FLUSH ONE (11:29)
[2021-04-11] MEDS ORDERED: Iopamidol 755 Mg/ML 100 ML Bottle IV SCH (11:30)
[2021-04-11] MEDS ORDERED: Sodium Chloride 0.9% 100 ML IV SCH (11:30)
--- NOTE | 2021-04-11 13:20 | CRLCT ---
For Patients: As a result of the Century Cures Act, medical imaging exams and procedure reports are released immediately into your electronic medical record. You may view this report before your referring provider. If you have questions, please contact your health care provider. INDICATION: New CHF. Elevated troponin. Hypoxemia. Tachycardia. COMPARISON: 03/21/2021. TECHNIQUE: CT angiography of the chest PE protocol. 100 cc IV [id number]. FINDINGS: No filling defect to indicate acute PE. Heart is enlarged. Small moderate pericardial fluid. No enlarged thoracic lymph nodes. Hypoattenuation of hepatic parenchyma is suggestive of steatosis. Bones are unremarkable. Bibasilar atelectasis. Patchy/geographic ground-glass opacities in both lungs. No pleural effusion or pneumothorax. Stable 6 mm right upper lobe nodule (series 10, image 54). IMPRESSION: 1. No evidence of acute PE. 2. Cardiomegaly, similar to prior. 3. Patchy/geographic ground-glass opacities in both lungs. Differential includes small airways disease, infection/inflammation or edema. Bibasilar atelectasis. No pleural effusion or pneumothorax. 4. Stable right upper lobe nodule. Please note that all CT scans at this facility use dose modulation, iterative reconstruction, and/or weight-based dosing when appropriate to reduce radiation dose to as low as reasonably achievable. Dictated by Abdifatah Bob MD @ 04/11/2021 1:19:[address] Abdifatah Bob @ Apr 11 2021 1:19PM
[2021-04-11] MEDS ORDERED: Ticagrelor 90 MG Tab PO ONE (13:34)
[2021-04-11] MEDS ORDERED: Heparin Sodium 5,000 Units/ML Vial IVPUSH ONE (13:34)
[2021-04-11] MEDS ORDERED: Heparin Sodium/D5W 25,000 UNITS/500 ML BAG IV SCH (13:45)
[2021-04-11] MEDS ORDERED: Aspirin 81 MG Tab.Chew ONE (14:35)
[2021-04-11 16:33] VITALS: BP 136/75; PULSE 103
== END 2021-04-11 17:00 ==
LOC: JP.ED 08:29
DX: I11.0 Hypertensive heart disease with heart failure (principal); I50.9 Heart failure, unspecified; R79.89 Other specified abnormal findings of blood chemistry; J45.909 Unspecified asthma, uncomplicated; K21.9 Gastro-esophageal reflux disease without esophagitis; Z99.81 Dependence on supplemental oxygen; E66.9 Obesity, unspecified; Z68.45 Body mass index [BMI] 70 or greater, adult; Z88.0 Allergy status to penicillin; Z79.899 Other long term (current) drug therapy; Z87.891 Personal history of nicotine dependence; Z20.822 Contact with and (suspected) exposure to COVID-19
CPT/HCPCS: 0241U; 36415; 71045; 71275; 80053; 81001; 83605; 83880; 84145; 84484; 85025; 85610; 85730; 86140; 87040; 93005; 96365; 96366; 96367; 96375; 99285; A9270; J1644; J1940; J1956; Q9967

== ENCOUNTER 2021-05-24 13:22 | Emergency (ER) | payer MEDICARE, MEDICAID ==
[2021-05-24 13:32] VITALS: BP 126/79; PULSE 92
--- NOTE | 2021-05-24 14:23 | EDM.PDOC ---
ED HPI GENERAL MEDICAL PROBLEM - General Chief Complaint: Respiratory Problem Stated Complaint: MEDIAL VIA NORTH Time Seen by Provider: 05/24/21 14:05 Source of Information: Reports: Patient, Family, Old Records, RN History Limitations: Reports: No Limitations - History of Present Illness INITIAL COMMENTS - FREE TEXT/NARRATIVE: 40 yo female presents with a complaint of SOB. Apparently this AM at home on her usual 3 liters of oxygen per min per [place] her oximeter showed only 90%. She has not had a cough or fever or calf pain lately. Here with family. Onset: Today Onset Date: 05/24/21 Duration: Hour(s): Location: Reports: Chest Quality: Reports: Other (no pain) Severity: Mild Improves with: Reports: None Worsens with: Reports: None Context: Reports: Other (See HPI) Associated Symptoms: Reports: Shortness of Breath. Denies: Cough, Fever/Chills Treatments CHIP TUNER: Reports: Other (see below) (none) - Related Data Allergies Allergy/AdvReac Type Severity Reaction Status Date / Time amoxicillin Allergy Hives Verified 05/24/21 13:24 Penicillins Allergy Hives Verified 05/24/21 13:24 Home Meds: Home Meds Gabapentin [Neurontin] 300 mg PO BEDTIME 11/06/16 [History] Lurasidone HCl [Latuda] 40 mg PO DAILY 11/06/16 [History] Omeprazole 20 mg PO DAILY 11/06/16 [History] buPROPion [buPROPion XL] 150 mg PO DAILY 11/06/16 [History] Metoprolol Succinate 25 mg PO DAILY 07/15/18 [History] Prazosin [Minpress] 5 mg PO BEDTIME 07/15/18 [History] clonazePAM [Klonopin] 1 mg PO BID 07/15/18 [History] Albuterol [Ventolin HFA] 2 puff INH Q4H PRN 07/27/18 [History] Naproxen 500 mg PO BID PRN 09/07/18 [History] OLANZapine [ZyPREXA] 1 tab PO DAILY PRN 02/14/19 [History] Acyclovir [Zovirax 5% Oint] 1 applic TOP Q3H PRN 02/21/19 [History] Etonogestrel [Nexplanon] 68 mg SQ Q36M 02/21/19 [History] Ibuprofen [Motrin] 600 mg PO TID PRN #30 tab 02/21/19 [Rx] Triamcinolone Acetonide [Kenalog 0.1% Crm] 1 applic TOP BID PRN 02/21/19 [History] Sennosides/Docusate Sodium [Stool Softener-Laxative] 2 tab PO BID PRN 05/13/19 [History] Past Medical History HEENT History: Reports: Impaired Vision Cardiovascular History: Reports: Hypertension Respiratory History: Reports: Asthma, SOB, Other (See Below) Other Respiratory History: On home oxygen at 3L, cpap Gastrointestinal History: Reports: GERD, Other (See Below) Other Gastrointestinal History: stomach ulcers. Neurological History: Reports: None Psychiatric History: Reports: Anxiety, Depression, Hallucinations, Psych Hospitalization(s), Schizophrenia, Suicidal Ideation, Other (See Below) Other Psychiatric History: SEEING THINGS AND HEARING THINGS Endocrine/Metabolic History: Reports: Obesity/BMI 30+ Hematologic History: Reports: Iron Deficiency Dermatologic History: Reports: Other (See Below) Other Dermatologic History: "lymphedema in legs" - Infectious Disease History Infectious Disease History: Reports: Chicken Pox - Past Surgical History Head Surgeries/Procedures: Reports: None HEENT Surgical History: Reports: None Cardiovascular Surgical History: Reports: None Respiratory Surgical History: Reports: None GI Surgical History: Reports: Cholecystectomy, Colonoscopy Endocrine Surgical History: Reports: None Neurological Surgical History: Reports: None Dermatological Surgical History: Reports: None Social & Family History - Family History Family Medical History: No Pertinent Family History - Tobacco Use Tobacco Use Status *Q: Never Tobacco User Second Hand Smoke Exposure: No - Caffeine Use Caffeine Use: Reports: Tea - Recreational Drug Use Recreational Drug Use: No - Living Situation & Occupation Living situation: Reports: with Significant Other (lives with Primitivo Benedict for the past 16 years, no children.) Occupation: Disabled (lives with Boyfriend in [place], [place].) ED ROS GENERAL - Review of Systems Review Of Systems: See Below Constitutional: Reports: No Symptoms HEENT: Reports: No Symptoms Respiratory: Reports: Shortness of Breath Cardiovascular: Reports: No Symptoms GI/Abdominal: Reports: No Symptoms : Reports: No Symptoms Musculoskeletal: Reports: No Symptoms Skin: Reports: No Symptoms Neurological: Reports: No Symptoms Psychiatric: Reports: No Symptoms ED EXAM, GENERAL - Physical Exam Exam: See Below Exam Limited By: No Limitations General Appearance: Alert, WD/WN, No Apparent Distress, Obese Eye Exam: Bilateral Eye: Normal Inspection Ears: Normal External Exam, Normal Canal, Hearing Grossly Normal Ear Exam: Bilateral Ear: Auricle Normal, Canal Normal Nose: Normal Inspection, No Blood Throat/Mouth: Normal Inspection, Normal Lips, Normal Oropharynx, Normal Voice, No Airway Compromise Head: Atraumatic, Normocephalic Neck: Normal Inspection Respiratory/Chest: No Respiratory Distress, Lungs Clear, Normal Breath Sounds, No Accessory Muscle Use Cardiovascular: Regular Rate, Rhythm, No Edema GI/Abdominal: Soft, Non-Tender Extremities: Normal Inspection, Normal Range of Motion, Non-Tender, No Pedal Edema Neurological: Alert, Oriented, CN II-XII Intact, Normal Cognition, No Motor/Sensory Deficits Psychiatric: Normal Affect, Normal Mood Skin Exam: Warm, Dry, Intact, Normal Color, No Rash Course - Vital Signs Last Recorded V/S: Last Vital Signs Temp 36.6 C 05/24/21 13:32 Pulse 92 05/24/21 13:32 Resp 20 05/24/21 13:32 BP 126/79 05/24/21 13:32 Pulse Ox 100 05/24/21 13:32 - Re-Assessments/Exams Free Text/Narrative Re-Assessment/Exam: 05/24/21 14:28 Stopped her oxygen completely and her sats never dropped below 96% Departure - Departure Time of Disposition: 14:28 Disposition: Home, Self-Care 01 Condition: Good Clinical Impression: Hyperoxia Qualifiers: Encounter type: initial encounter Injury intent: accidental or unintentional Qualified Code(s): T41.5X1A - Poisoning by therapeutic gases, accidental (unintentional), initial encounter - Discharge Information *PRESCRIPTION DRUG MONITORING PROGRAM REVIEWED*: Not Applicable *COPY OF PRESCRIPTION DRUG MONITORING REPORT IN PATIENT BETZY: Not Applicable Referrals: PCP,None [Primary Care Provider] - Forms: ED Department Discharge Additional Instructions: Reduce your oxygen to 2 liters at night with your BiPAP, to room air at rest w hen awake, and adjust your oxygen with activity to level sufficient to keep your oximeter at 95-96%. Follow up with your doctor within the week. Sepsis Event Note (ED) - Evaluation Sepsis Screening Result: No Definite Risk - Focused Exam Vital Signs: Vital Signs Temp Pulse Resp BP Pulse Ox 05/24/21 13:32 36.6 C 92 20 126/79 100 05/24/21 13:30 36.6 C 92 20 126/79 100
== END 2021-05-24 14:59 | disposition home or self-care (01) ==
LOC: JP.ED 13:22
DX: T41.5X1A Poisoning by therapeutic gases, accidental (unintentional), initial encounter (principal); R09.02 Hypoxemia; I10 Essential (primary) hypertension; E66.9 Obesity, unspecified; K21.9 Gastro-esophageal reflux disease without esophagitis; Z79.899 Other long term (current) drug therapy; Z88.0 Allergy status to penicillin; Z68.45 Body mass index [BMI] 70 or greater, adult
CPT/HCPCS: 99284

== ENCOUNTER 2021-06-05 13:45 | Emergency (ER) | payer MEDICARE, MEDICAID ==
[2021-06-05 14:35] VITALS: BP 168/90; PULSE 107
--- NOTE | 2021-06-05 16:22 | EDM.PDOCBH ---
<Laura Barbour - Last Filed: 06/05/21 16:11> ED HPI GENERAL MEDICAL PROBLEM - General Chief Complaint: Behavioral/Psych Stated Complaint: SUICIDAL THOUGHTS, VIA NORTH Time Seen by Provider: 06/05/21 16:00 Source of Information: Reports: Patient History Limitations: Reports: No Limitations - History of Present Illness INITIAL COMMENTS - FREE TEXT/NARRATIVE: 40 year old female with history of CHF, obesity, schizophrenia, depression, polypharmacy, and PTSD arrives with complaints of worsening hostile auditory hallucinations and suicidal ideation. She reports that for the last couple months she has been hearing voices. The voices are of "aliens under her chair telling her to kill herself by cutting her wrists". She states that these voices have been bothering her for a while now but hasnt said anything. She reports that her boyfriend was admitted today for worsening hallucinations but denies this being a factor in her mental health decline. In March, she had some medicaiton changes: Wellbutrin was decreased from 300 mg daily to 100 mg daily, stopped her clozapine 100 mg tablet daily and stopped her sertraline 100 mg tablet daily. She started taking Zyprexa 2.5 mg BID and clonazepam 1mg at HS. She states that she feels unsafe returning home and feels that she needs admission to get her medication regimen under control. bilateral wrists show No evidence of attempted self harm today, she denies drug or alcohol use. Onset: Gradual Duration: Week(s):, Chronic Location: Reports: Other (hearing voices telling her to harm herself. ) Improves with: Reports: None Worsens with: Reports: None Context: Reports: Other (chronic mental health) Associated Symptoms: Reports: No Other Symptoms - Related Data Allergies Allergy/AdvReac Type Severity Reaction Status Date / Time amoxicillin Allergy Hives Verified 06/05/21 14:49 Penicillins Allergy Hives Verified 06/05/21 14:49 Home Meds: Home Meds Gabapentin [Neurontin] 900 mg PO BEDTIME 11/06/16 [History] Lurasidone HCl [Latuda] 60 mg PO DAILY 11/06/16 [History] Omeprazole 20 mg PO DAILY 11/06/16 [History] buPROPion [buPROPion XL] 100 mg PO DAILY 11/06/16 [History] Metoprolol Succinate 50 mg PO DAILY 07/15/18 [History] clonazePAM [Klonopin] 0.5 mg PO DAILY 07/15/18 [History] Albuterol [Ventolin HFA] 2 puff INH Q4H PRN 07/27/18 [History] OLANZapine [ZyPREXA] 1 tab PO BEDTIME 02/14/19 [History] Acyclovir [Zovirax 5% Oint] 1 applic TOP Q3H PRN 02/21/19 [History] Etonogestrel [Nexplanon] 68 mg SQ Q36M 02/21/19 [History] Triamcinolone Acetonide [Kenalog 0.1% Crm] 1 applic TOP BID PRN 02/21/19 [History] Sennosides/Docusate Sodium [Stool Softener-Laxative] 2 tab PO BID PRN 05/13/19 [History] Bepotastine Besilate [Bepreve 1.5%] 1 drop EYEBOTH BID 06/05/21 [History] Clotrimazole [Clotrimazole 1%] 1 applic TOP BID PRN 06/05/21 [History] Docusate Sodium 1 cap PO DAILY 06/05/21 [History] Ferrous Sulfate [Feosol] 1 tab PO DAILY 06/05/21 [History] Furosemide 80 mg PO BID 06/05/21 [History] Meclizine [Antivert] 1 tab PO Q8H PRN 06/05/21 [History] OLANZapine [ZyPREXA] 1 tab PO BID 06/05/21 [History] Potassium Chloride [Klor-Con M20] 1 tab PO DAILY 06/05/21 [History] Pseudoephedrine [Sudogest] 1 tab PO Q6H PRN 06/05/21 [History] clonazePAM [Clonazepam] 1 tab PO BEDTIME 06/05/21 [History] Past Medical History HEENT History: Reports: Impaired Vision Cardiovascular History: Reports: Hypertension Respiratory History: Reports: Asthma, SOB, Other (See Below) Other Respiratory History: On home oxygen at 3L, cpap Gastrointestinal History: Reports: GERD, Other (See Below) Other Gastrointestinal History: stomach ulcers. Neurological History: Reports: None Psychiatric History: Reports: Anxiety, Depression, Hallucinations, Psych Hospitalization(s), Schizophrenia, Suicidal Ideation, Other (See Below) Other Psychiatric History: SEEING THINGS AND HEARING THINGS Endocrine/Metabolic History: Reports: Obesity/BMI 30+ Hematologic History: Reports: Iron Deficiency Dermatologic History: Reports: Other (See Below) Other Dermatologic History: "lymphedema in legs" - Infectious Disease History Infectious Disease History: Reports: Chicken Pox - Past Surgical History Head Surgeries/Procedures: Reports: None HEENT Surgical History: Reports: None Cardiovascular Surgical History: Reports: None Respiratory Surgical History: Reports: None GI Surgical History: Reports: Cholecystectomy, Colonoscopy Endocrine Surgical History: Reports: None Neurological Surgical History: Reports: None Dermatological Surgical History: Reports: None Social & Family History - Family History Family Medical History: No Pertinent Family History - Tobacco Use Tobacco Use Status *Q: Never Tobacco User - Caffeine Use Caffeine Use: Reports: None - Recreational Drug Use Recreational Drug Use: No - Living Situation & Occupation Living situation: Reports: with Significant Other (lives with Primitivo Benedict for the past 16 years, no children.) Occupation: Disabled (lives with Boyfriend in [place], [place].) ED EXAM, BEHAVIORAL HEALTH - Physical Exam Text/Narrative:: Wendi is resting on chair in room, alert and oriented. skin is warm and dry. Respirations are regular and non labored. abdomen is non tender to palpation, lung sounds are diminished throughout. Denies any medical concerns. She is calm, cooperative and able to answer questions. She has a flat affect. Exam Limited By: No Limitations General Appearance: Alert, WD/WN, Obese Ears: Normal External Exam Nose: Normal Inspection, No Blood Throat/Mouth: Normal Inspection, No Airway Compromise Head: Atraumatic Neck: Normal Inspection, Non-Tender Respiratory/Chest: No Respiratory Distress, Lungs Clear, Chest Non-Tender Cardiovascular: Normal Peripheral Pulses, No Edema GI/Abdominal: Soft, Non-Tender (Female) Exam: Deferred Rectal (Female) Exam: Deferred Back Exam: Normal Inspection, Full Range of Motion Extremities: Normal Inspection, Normal Range of Motion, Non-Tender, No Pedal Edema, Normal Capillary Refill Neurological: Alert, Normal Mood/Affect Psychiatric: Alert, Flat Affect, Auditory Hallucinations, Visual Hallucinations Skin Exam: Warm, Dry, Intact, Normal color, No rash COURSE, BEHAVIORAL HEALTH COMP - Course Re-Assessment/Re-Exam: Discussed with patient the need to contact the mobile crisis team to evaluate her. CBC, CMP, Covid, UA, and UDS tests ordered. Family and patient agree with plan of care at this time. Departure - Departure Disposition: Home, Self-Care 01 Clinical Impression: Hallucinations, Anxiety Schizophrenia Qualifiers: Schizophrenia type: unspecified Qualified Code(s): F20.9 - Schizophrenia, unspecified - Discharge Information Referrals: Abdifatah Aguirre MD [Primary Care Provider] - Forms: ED Department Discharge Care Plan Goals: I have included the safety plan that you have agreed to with crisis intervention. At this time, you are suitable for discharge home with your parents. Sepsis Event Note (ED) - Evaluation Sepsis Screening Result: No Definite Risk <Edwin Reid - Last Filed: 06/05/21 19:58> ED ROS GENERAL - Review of Systems Review Of Systems: See Below ED EXAM, BEHAVIORAL HEALTH - Physical Exam Exam: See Below Departure - Departure Time of Disposition: 19:58 <Geovanny Lawrence - Last Filed: 06/06/21 07:51> ED ROS GENERAL - Review of Systems Constitutional: Denies: Fever, Chills HEENT: Reports: Other (Chronic disconjugate gaze) Respiratory: Reports: Shortness of Breath (Shortness of breath is intermittent with activity, she does have home O2 on a as needed basis) Cardiovascular: Denies: Chest Pain, Palpitations GI/Abdominal: Denies: Abdominal Pain Neurological: Denies: Headache Psychiatric: Reports: Depression, Hallucinations COURSE, BEHAVIORAL HEALTH COMP - Course Vital Signs: Last Vital Signs Temp 97.7 F 06/05/21 15:24 Pulse 107 H 06/05/21 15:24 Resp 16 06/05/21 15:24 BP 168/90 H 06/05/21 15:24 Pulse Ox 93 L 06/05/21 15:24 Orders, Labs, Meds: Laboratory Tests 06/05/21 06/05/21 06/05/21 Range/Units 16:35 16:35 16:38 WBC 9.5 (4.5-11.0) K/uL RBC 5.23 (3.30-5.50) M/uL Hgb 13.9 (12.0-15.0) g/dL Hct 44.4 (36.0-48.0) % MCV 85 (80-98) fL MCH 27 (27-31) pg MCHC 31 L (32-36) % Plt Count 280 (150-400) K/uL Neut % (Auto) 69.8 H (36-66) % Lymph % (Auto) 20.2 L (24-44) % [place] % (Auto) 8.4 H (2-6) % Eos % (Auto) 1.3 L (2-4) % Baso % (Auto) 0.3 (0-1) % Sodium (140-148) mmol/L Potassium (3.6-5.2) mmol/L Chloride (100-108) mmol/L Carbon Dioxide (21-32) mmol/L Anion Gap (5.0-14.0) mmol/L BUN (7-18) mg/dL Creatinine (0.6-1.0) mg/dL Est Cr Clr Drug Dosing mL/min Estimated GFR (MDRD) (>60) Glucose (74-106) mg/dL Calcium (8.5-10.1) mg/dL Total Bilirubin (0.2-1.0) mg/dL AST (15-37) U/L ALT (12-78) U/L Alkaline Phosphatase (46-116) U/L Total Protein (6.4-8.2) g/dL Albumin (3.4-5.0) g/dL Globulin (2.3-3.5) g/dL Albumin/Globulin Ratio (1.2-2.2) Urine Color Yellow (YELLOW) Urine Appearance Clear (CLEAR) Urine pH 6.5 (5.0-8.0) Ur Specific [place] 1.015 (1.008-1.030) Urine Protein Negative (NEGATIVE) mg/dL Urine Glucose (UA) Negative (NEGATIVE) mg/dL Urine Ketones Negative (NEGATIVE) mg/dL Urine Occult Blood Large H (NEGATIVE) Urine Nitrite Negative (NEGATIVE) Urine Bilirubin Negative (NEGATIVE) Urine Urobilinogen 0.2 (0.2-1.0) EU/dL Ur Leukocyte Esterase Trace H (NEGATIVE) Urine RBC 10-20 H (0-5) Urine WBC 5-10 H (0-5) Ur Epithelial Cells Moderate Amorphous Sediment Few Urine Bacteria Moderate Urine Mucus Not seen Urine Opiates Screen Negative (NEGATIVE) Ur Oxycodone Screen Negative (NEGATIVE) Urine Methadone Screen Negative (NEGATIVE) Ur Propoxyphene Screen Negative (NEGATIVE) Ur Barbiturates Screen Negative (NEGATIVE) Ur Tricyclics Screen Negative (NEGATIVE) Ur Phencyclidine Scrn Negative (NEGATIVE) Ur Amphetamine Screen Negative (NEGATIVE) U Methamphetamines Scrn Negative (NEGATIVE) Urine MDMA Screen Negative (NEGATIVE) U Benzodiazepines Scrn Negative (NEGATIVE) U Cocaine Metab Screen Negative (NEGATIVE) U Marijuana (THC) Screen Negative (NEGATIVE) SARS CoV-2 RNA Rapid FADIA 06/05/21 06/05/21 Range/Units 16:38 16:38 WBC (4.5-11.0) K/uL RBC (3.30-5.50) M/uL Hgb (12.0-15.0) g/dL Hct (36.0-48.0) % MCV (80-98) fL MCH (27-31) pg MCHC (32-36) % Plt Count (150-400) K/uL Neut % (Auto) (36-66) % Lymph % (Auto) (24-44) % [place] % (Auto) (2-6) % Eos % (Auto) (2-4) % Baso % (Auto) (0-1) % Sodium 140 (140-148) mmol/L Potassium 3.9 (3.6-5.2) mmol/L Chloride 101 (100-108) mmol/L Carbon Dioxide 33 H (21-32) mmol/L Anion Gap 9.9 (5.0-14.0) mmol/L BUN 10 (7-18) mg/dL Creatinine 0.8 (0.6-1.0) mg/dL Est Cr Clr Drug Dosing 82.33 mL/min Estimated GFR (MDRD) > 60 (>60) Glucose 104 (74-106) mg/dL Calcium 9.3 (8.5-10.1) mg/dL Total Bilirubin 0.8 (0.2-1.0) mg/dL AST 22 (15-37) U/L ALT 61 D (12-78) U/L Alkaline Phosphatase 94 (46-116) U/L Total Protein 8.0 (6.4-8.2) g/dL Albumin 3.3 L (3.4-5.0) g/dL Globulin 4.7 H (2.3-3.5) g/dL Albumin/Globulin Ratio 0.7 L (1.2-2.2) Urine Color (YELLOW) Urine Appearance (CLEAR) Urine pH (5.0-8.0) Ur Specific [place] (1.008-1.030) Urine Protein (NEGATIVE) mg/dL Urine Glucose (UA) (NEGATIVE) mg/dL Urine Ketones (NEGATIVE) mg/dL Urine Occult Blood (NEGATIVE) Urine Nitrite (NEGATIVE) Urine Bilirubin (NEGATIVE) Urine Urobilinogen (0.2-1.0) EU/dL Ur Leukocyte Esterase (NEGATIVE) Urine RBC (0-5) Urine WBC (0-5) Ur Epithelial Cells Amorphous Sediment Urine Bacteria Urine Mucus Urine Opiates Screen (NEGATIVE) Ur Oxycodone Screen (NEGATIVE) Urine Methadone Screen (NEGATIVE) Ur Propoxyphene Screen (NEGATIVE) Ur Barbiturates Screen (NEGATIVE) Ur Tricyclics Screen (NEGATIVE) Ur Phencyclidine Scrn (NEGATIVE) Ur Amphetamine Screen (NEGATIVE) U Methamphetamines Scrn (NEGATIVE) Urine MDMA Screen (NEGATIVE) U Benzodiazepines Scrn (NEGATIVE) U Cocaine Metab Screen (NEGATIVE) U Marijuana (THC) Screen (NEGATIVE) SARS CoV-2 RNA Rapid FADIA Negative Re-Assessment/Re-Exam: Crisis team was called and agreed to see the patient to discuss possibility of admission versus home therapy and developing an outpatient plan. Care was turned over to Dr. Owen pending crisis evaluation.
== END 2021-06-05 20:13 | disposition home or self-care (01) ==
LOC: JP.ED 13:45
DX: F20.9 Schizophrenia, unspecified (principal); F41.9 Anxiety disorder, unspecified; I10 Essential (primary) hypertension; J45.909 Unspecified asthma, uncomplicated; K21.9 Gastro-esophageal reflux disease without esophagitis; E66.9 Obesity, unspecified; Z68.45 Body mass index [BMI] 70 or greater, adult; Z88.0 Allergy status to penicillin; Z79.899 Other long term (current) drug therapy; Z20.822 Contact with and (suspected) exposure to COVID-19
CPT/HCPCS: 36415; 80053; 80305; 81001; 85025; 99285; U0002

== ENCOUNTER 2023-04-15 23:56 | Emergency (ER) | payer MEDICARE, MEDICAID ==
[2023-04-16 00:10] VITALS: BP 111/64; PULSE 80
[2023-04-16 01:09] LABS: HEMATOCRIT 37.1 % (34.3-46.0); HEMOGLOBIN 12.4 g/dL (11.2-15.5); MEAN CORPUSCULAR HEMOGLOBIN 30.5 pg (31.6-35.5); MEAN CORPUSCULAR HGB CONC 33.4 g/dL (31.6-35.5); MEAN CORPUSCULAR VOLUME 91.4 fL (81.4-99.0); RED BLOOD CELL COUNT 4.06 M/uL (3.77-5.24)
[2023-04-16 01:33] LABS: A/G RATIO 0.9 (1.2-2.2); ALANINE AMINOTRANSFERASE,ALT 19 U/L (12-78); ALBUMIN 3.2 g/dL (3.4-5.0); ALKALINE PHOSPHATASE 80 U/L (46-116); ASPARTATE AMNIOTRANSFERASE,AST 14 U/L (15-37); BILIRUBIN TOTAL 0.4 mg/dL (0.2-1.0); BLOOD UREA NITROGEN,BUN 15 mg/dL (7-18); CALCIUM 8.8 mg/dL (8.5-10.1); CARBON DIOXIDE,CO2 28 mmol/L (21-32); CHLORIDE,CL 105 mmol/L (100-108); CREATININE 0.7 mg/dL (0.6-1.0); ESTIMATED GFR 112 mL/min (>60); GLUCOSE RANDOM 93 mg/dL (74-106); POTASSIUM,K 3.7 mmol/L (3.6-5.2); PROTEIN TOTAL,TP 6.8 g/dL (6.4-8.2); SODIUM,NA 139 mmol/L (140-148)
[2023-04-16 01:40] LABS: ANION GAP 9.7 mmol/L (5.0-14.0); TROPONIN I HIGH SENSITIVITY < 4.0 pg/mL (<=60.3)
== END 2023-04-16 01:58 | disposition home or self-care (01) ==
LOC: JP.ED 23:56
DX: I95.1 Orthostatic hypotension (principal); K21.9 Gastro-esophageal reflux disease without esophagitis; I10 Essential (primary) hypertension; J45.909 Unspecified asthma, uncomplicated; E66.9 Obesity, unspecified; Z68.30 Body mass index [BMI] 30.0-30.9, adult; Z88.0 Allergy status to penicillin; Z87.891 Personal history of nicotine dependence
CPT/HCPCS: 36415; 80053; 84484; 85027; 93005; 99284

== ENCOUNTER 2023-06-26 15:02 | Emergency (ER) | payer MEDICARE, MEDICAID ==
[2023-06-26 15:43] LABS: APPEARANCE,URINE CLEAR (CLEAR); BILIRUBIN,URINE NEGATIVE (NEGATIVE); GLUCOSE,URINE NEGATIVE (NEGATIVE); KETONES,URINE NEGATIVE (NEGATIVE); LEUKOCYTE ESTERASE,URINE NEGATIVE (NEGATIVE); NITRITE,URINE NEGATIVE (NEGATIVE); OCCULT BLOOD,URINE NEGATIVE (NEGATIVE); PROTEIN,URINE NEGATIVE (NEGATIVE); UROBILINOGEN,URINE 0.2 EU/dL (0.2-1.0)
[2023-06-26 15:43] LABS: BASOPHILS PERCENT AUTO 0.3 % (0.1-1.3); EOSINOPHILS ABSOLUTE AUTO 0.04 K/uL (0.00-0.40); EOSINOPHILS PERCENT AUTO 0.7 % (0.0-5.4); HEMATOCRIT 39.3 % (34.3-46.0); HEMOGLOBIN 13.2 g/dL (11.2-15.5); IMMATURE GRAN PERCENT AUTO 0.2 % (0.0-0.7); LYMPHOCYTES ABSOLUTE AUTO 2.35 K/uL (0.8-3.3); LYMPHOCYTES PERCENT AUTO 39.4 % (11.4-47.7); MEAN CORPUSCULAR HEMOGLOBIN 29.8 pg (31.6-35.5); MEAN CORPUSCULAR HGB CONC 33.6 g/dL (31.6-35.5); MEAN CORPUSCULAR VOLUME 88.7 fL (81.4-99.0); MONOCYTES ABSOLUTE AUTO 0.43 K/uL (0.20-0.90); MONOCYTES PERCENT AUTO 7.2 % (3.3-12.6); NEUTROPHILS ABSOLUTE AUTO 3.12 K/uL (1.0-7.6); NEUTROPHILS PERCENT AUTO 52.2 % (40.0-78.1); PLATELET COUNT,PLT 261 K/uL (130-375); RED BLOOD CELL COUNT 4.43 M/uL (3.77-5.24)
[2023-06-26 15:44] LABS: BASOPHILS ABSOLUTE AUTO 0.02 K/uL (0.00-0.10); IMMATURE GRAN ABSOLUTE AUTO 0.01 K/uL (0.00-0.23)
[2023-06-26 15:53] LABS: AMORPHOUS SEDIMENT,URINE NOT SEEN; BACTERIA,URINE RARE; COLOR,URINE OTHER (YELLOW); EPITHELIAL CELLS,URINE RARE; MUCUS,URINE RARE; RBC,URINE 0-5 (0-5); WBC,URINE 0-5 (0-5)
[2023-06-26 16:03] LABS: ALANINE AMINOTRANSFERASE,ALT 19 U/L (12-78); ALBUMIN 3.6 g/dL (3.4-5.0); ALKALINE PHOSPHATASE 73 U/L (46-116); ASPARTATE AMNIOTRANSFERASE,AST 15 U/L (15-37); BILIRUBIN TOTAL 1.3 mg/dL (0.2-1.0); BLOOD UREA NITROGEN,BUN 3 mg/dL (7-18); C-REACTIVE PROTEIN 0.25 mg/dL (0.0-0.3); CALCIUM 8.8 mg/dL (8.5-10.1); CARBON DIOXIDE,CO2 27 mmol/L (21-32); CHLORIDE,CL 95 mmol/L (100-108); CREATININE 0.6 mg/dL (0.6-1.0); ESTIMATED GFR 116 mL/min (>60); GLUCOSE RANDOM 87 mg/dL (74-106); POTASSIUM,K 3.5 mmol/L (3.6-5.2); PROTEIN TOTAL,TP 7.2 g/dL (6.4-8.2); SODIUM,NA 131 mmol/L (140-148)
[2023-06-26 16:04] LABS: ANION GAP 12.5 mmol/L (5.0-14.0)
[2023-06-26] MEDS ORDERED: Sodium Chloride 0.9% 1,000 ML IV ONE (16:04)
[2023-06-26 16:19] VITALS: BP 150/83; PULSE 83
== END 2023-06-26 17:26 | disposition home or self-care (01) ==
LOC: JP.ED 15:02
DX: E86.0 Dehydration (principal); E87.1 Hypo-osmolality and hyponatremia; J45.909 Unspecified asthma, uncomplicated; I11.0 Hypertensive heart disease with heart failure; I50.9 Heart failure, unspecified; E66.9 Obesity, unspecified; K21.9 Gastro-esophageal reflux disease without esophagitis; Z88.0 Allergy status to penicillin; Z79.51 Long term (current) use of inhaled steroids; Z79.899 Other long term (current) drug therapy; Z68.30 Body mass index [BMI] 30.0-30.9, adult
CPT/HCPCS: 36415; 80053; 81001; 85025; 86140; 96360; 99284; J7030

== ENCOUNTER 2024-08-09 13:39 | Emergency (ER) | payer MEDICARE, MEDICAID ==
[2024-08-09 14:00] VITALS: BP 169/92; PULSE 101
[2024-08-09] MEDS: Meclizine 25 MG Tab PO ONE (14:40)
[2024-08-09 15:52] LABS: ALANINE AMINOTRANSFERASE,ALT 19 U/L (12-78); ALBUMIN 3.6 g/dL (3.4-5.0); ALKALINE PHOSPHATASE 78 U/L (46-116); ASPARTATE AMNIOTRANSFERASE,AST 14 U/L (15-37); BILIRUBIN TOTAL 0.9 mg/dL (0.2-1.0); BLOOD UREA NITROGEN,BUN 7 mg/dL (7-18); CARBON DIOXIDE,CO2 31 mmol/L (21-32); CHLORIDE,CL 102 mmol/L (100-108); CREATININE 0.6 mg/dL (0.6-1.0); EST CRCL DRUG DOSING (CG) 115.51 mL/min; ESTIMATED GFR 116 mL/min (>60); GLUCOSE RANDOM 86 mg/dL (74-106); POTASSIUM,K 3.8 mmol/L (3.6-5.2); PROTEIN TOTAL,TP 7.3 g/dL (6.4-8.2); SODIUM,NA 139 mmol/L (140-148)
[2024-08-09 15:53] LABS: ANION GAP 9.8 mmol/L (5.0-14.0)
== END 2024-08-09 16:27 | disposition home or self-care (01) ==
LOC: JP.ED 13:39
DX: R55 Syncope and collapse (principal); I10 Essential (primary) hypertension; J45.909 Unspecified asthma, uncomplicated; E66.9 Obesity, unspecified; Z68.37 Body mass index [BMI] 37.0-37.9, adult; Z90.49 Acquired absence of other specified parts of digestive tract; Z79.899 Other long term (current) drug therapy; Z88.0 Allergy status to penicillin
CPT/HCPCS: 36415; 80053; 99284; A9270

== ENCOUNTER 2025-03-10 19:12 | Emergency (ER) | payer MEDICARE, MEDICAID ==
[2025-03-10 19:27] VITALS: BP 154/105; PULSE 121
== END 2025-03-10 19:40 | disposition home or self-care (01) ==
LOC: JP.ED 19:12
DX: R45.851 Suicidal ideations (principal); I10 Essential (primary) hypertension; J45.909 Unspecified asthma, uncomplicated; E66.9 Obesity, unspecified; Z90.49 Acquired absence of other specified parts of digestive tract; Z79.899 Other long term (current) drug therapy; Z88.0 Allergy status to penicillin
CPT/HCPCS: 99284

== ENCOUNTER 2025-03-16 11:21 | Emergency (ER) | payer MEDICARE, MEDICAID ==
[2025-03-16 11:35] LABS: AMPHETAMINES SCREEN, URINE NEGATIVE (NEGATIVE); BARBITURATE SCREEN,URINE NEGATIVE (NEGATIVE); BENZODIAZEPINES SCREEN,URINE NEGATIVE (NEGATIVE); METHADONE SCREEN, URINE NEGATIVE (NEGATIVE); METHAMPHETAMINES SCREEN, URINE NEGATIVE (NEGATIVE); OXYCODONE SCREEN,URINE NEGATIVE (NEGATIVE); PROPOXYPHENE SCREEN,URINE NEGATIVE (NEGATIVE); THC SCREEN,URINE 50 NG/ML NEGATIVE (NEGATIVE)
[2025-03-16 11:36] LABS: BASOPHILS PERCENT AUTO 0.1 % (0.1-1.3); EOSINOPHILS ABSOLUTE AUTO 0.03 K/uL (0.00-0.40); EOSINOPHILS PERCENT AUTO 0.4 % (0.0-5.4); HEMOGLOBIN 13.6 g/dL (11.2-15.5); IMMATURE GRAN PERCENT AUTO 0.3 % (0.0-0.7); LYMPHOCYTES ABSOLUTE AUTO 1.75 K/uL (0.8-3.3); LYMPHOCYTES PERCENT AUTO 26.2 % (11.4-47.7); MEAN CORPUSCULAR HEMOGLOBIN 30.2 pg (31.6-35.5); MEAN CORPUSCULAR HGB CONC 33.2 g/dL (31.6-35.5); MEAN CORPUSCULAR VOLUME 91.1 fL (81.4-99.0); MONOCYTES ABSOLUTE AUTO 0.56 K/uL (0.20-0.90); MONOCYTES PERCENT AUTO 8.4 % (3.3-12.6); NEUTROPHILS ABSOLUTE AUTO 4.32 K/uL (1.0-7.6); NEUTROPHILS PERCENT AUTO 64.6 % (40.0-78.1); PLATELET COUNT,PLT 266 K/uL (130-375); WHITE BLOOD CELL COUNT,WBC 6.7 K/uL (3.2-11.0)
[2025-03-16 11:37] LABS: BASOPHILS ABSOLUTE AUTO 0.01 K/uL (0.00-0.10); IMMATURE GRAN ABSOLUTE AUTO 0.02 K/uL (0.00-0.23)
[2025-03-16 11:56] LABS: CALCIUM 9.2 mg/dL (8.5-10.1); CREATININE 0.8 mg/dL (0.6-1.0); EST CRCL DRUG DOSING (CG) 79.11 mL/min; POTASSIUM,K 3.7 mmol/L (3.6-5.2)
[2025-03-16 11:57] LABS: ANION GAP 14.7 mmol/L (5.0-14.0)
[2025-03-16 16:00] VITALS: BP 153/94; PULSE 104
== END 2025-03-16 16:00 | disposition home or self-care (01) ==
LOC: JP.ED 11:21
DX: R45.851 Suicidal ideations (principal); I10 Essential (primary) hypertension; E66.9 Obesity, unspecified; K21.9 Gastro-esophageal reflux disease without esophagitis; Z88.0 Allergy status to penicillin; Z88.1 Allergy status to other antibiotic agents; Z79.899 Other long term (current) drug therapy; Z90.49 Acquired absence of other specified parts of digestive tract; Z68.42 Body mass index [BMI] 45.0-49.9, adult
CPT/HCPCS: 36415; 80048; 80143; 80179; 80305-QW; 80307; 81025; 85025; 99285

== ENCOUNTER 2025-04-14 15:34 | Emergency (ER) | payer MEDICARE, MEDICAID ==
[2025-04-14 15:56] LABS: APPEARANCE,URINE CLEAR (CLEAR); BILIRUBIN,URINE NEGATIVE (NEGATIVE); COLOR,URINE YELLOW (YELLOW); GLUCOSE,URINE NEGATIVE (NEGATIVE); KETONES,URINE NEGATIVE (NEGATIVE); LEUKOCYTE ESTERASE,URINE NEGATIVE (NEGATIVE); NITRITE,URINE NEGATIVE (NEGATIVE); OCCULT BLOOD,URINE NEGATIVE (NEGATIVE); PH,URINE 6.5 (5.0-8.0); PROTEIN,URINE NEGATIVE (NEGATIVE); UROBILINOGEN,URINE 0.2 EU/dL (0.2-1.0)
[2025-04-14 15:58] LABS: AMORPHOUS SEDIMENT,URINE NOT SEEN; AMPHETAMINES SCREEN, URINE NEGATIVE (NEGATIVE); BACTERIA,URINE RARE; BARBITURATE SCREEN,URINE NEGATIVE (NEGATIVE); BENZODIAZEPINES SCREEN,URINE NEGATIVE (NEGATIVE); EPITHELIAL CELLS,URINE NOT SEEN; METHAMPHETAMINES SCREEN, URINE NEGATIVE (NEGATIVE); MUCUS,URINE NOT SEEN; RBC,URINE 0-5 (0-5); WBC,URINE 0-5 (0-5)
[2025-04-14 15:59] LABS: METHADONE SCREEN, URINE NEGATIVE (NEGATIVE); OXYCODONE SCREEN,URINE NEGATIVE (NEGATIVE); PROPOXYPHENE SCREEN,URINE NEGATIVE (NEGATIVE); THC SCREEN,URINE 50 NG/ML NEGATIVE (NEGATIVE)
[2025-04-14 16:01] LABS: BASOPHILS ABSOLUTE AUTO 0.03 K/uL (0.00-0.10); BASOPHILS PERCENT AUTO 0.4 % (0.1-1.3); EOSINOPHILS ABSOLUTE AUTO 0.03 K/uL (0.00-0.40); EOSINOPHILS PERCENT AUTO 0.4 % (0.0-5.4); HEMATOCRIT 38.1 % (34.3-46.0); IMMATURE GRAN PERCENT AUTO 0.3 % (0.0-0.7); LYMPHOCYTES ABSOLUTE AUTO 2.29 K/uL (0.8-3.3); LYMPHOCYTES PERCENT AUTO 33.4 % (11.4-47.7); MEAN CORPUSCULAR HGB CONC 34.1 g/dL (31.6-35.5); MONOCYTES ABSOLUTE AUTO 0.72 K/uL (0.20-0.90); MONOCYTES PERCENT AUTO 10.5 % (3.3-12.6); NEUTROPHILS ABSOLUTE AUTO 3.76 K/uL (1.0-7.6); PLATELET COUNT,PLT 280 K/uL (130-375); RED BLOOD CELL COUNT 4.33 M/uL (3.77-5.24); WHITE BLOOD CELL COUNT,WBC 6.9 K/uL (3.2-11.0)
[2025-04-14 16:04] LABS: IMMATURE GRAN ABSOLUTE AUTO 0.02 K/uL (0.00-0.23)
[2025-04-14] MEDS: Sodium Chloride 0.9% 1,000 ML IV ONE (16:10)
[2025-04-14] MEDS: Prochlorperazine 10 MG/2 ML SDV IVPUSH ONE (16:12)
[2025-04-14 16:22] LABS: ALANINE AMINOTRANSFERASE,ALT 24 U/L (12-78); ALBUMIN 3.6 g/dL (3.4-5.0); ALKALINE PHOSPHATASE 91 U/L (46-116); ASPARTATE AMNIOTRANSFERASE,AST 20 U/L (15-37); BILIRUBIN TOTAL 1.5 mg/dL (0.2-1.0); BLOOD UREA NITROGEN,BUN 10 mg/dL (7-18); CALCIUM 9.2 mg/dL (8.5-10.1); CARBON DIOXIDE,CO2 29 mmol/L (21-32); CHLORIDE,CL 92 mmol/L (100-108); CREATININE 0.6 mg/dL (0.6-1.0); ESTIMATED GFR 115 mL/min (>60); GLUCOSE RANDOM 88 mg/dL (74-106); POTASSIUM,K 3.7 mmol/L (3.6-5.2); PROTEIN TOTAL,TP 7.2 g/dL (6.4-8.2); SODIUM,NA 127 mmol/L (140-148)
[2025-04-14 16:25] LABS: ANION GAP 9.7 mmol/L (5.0-14.0)
[2025-04-14 17:21] VITALS: BP 153/85; PULSE 76
== END 2025-04-14 17:37 | disposition home or self-care (01) ==
LOC: JP.ED 15:34
DX: K52.9 Noninfective gastroenteritis and colitis, unspecified (principal); E87.1 Hypo-osmolality and hyponatremia; I10 Essential (primary) hypertension; J45.909 Unspecified asthma, uncomplicated; Z90.49 Acquired absence of other specified parts of digestive tract; Z88.0 Allergy status to penicillin; Z79.899 Other long term (current) drug therapy
CPT/HCPCS: 36415; 80053; 80305; 81001; 81025; 83605; 85025; 96361; 96374; 99284; J0780; J7030